=== PATIENT | female | born 1940 | race Caucasian/White ===

== ENCOUNTER → 2016-12-15 | Outpatient (CLI) | payer MEDICARE, BC, OTHER ==
[2016-12-15 18:40] LABS: ALBUMIN 3.9 GM/DL (3.2-5.2); ALBUMIN/GLOBULIN RATIO 1.44 (1.00-1.93); BILIRUBIN,TOTAL 0.7 MG/DL (0.2-1.0); CALCIUM LEVEL 8.8 MG/DL (8.8-10.2); CREATININE FOR GFR 1.16 MG/DL (0.55-1.02); FREE T4 1.21 NG/DL (0.76-1.46); GLOMERULAR FILTRATION RATE 48.8 (>39); POTASSIUM SERUM 4.7 MEQ/L (3.5-5.1); TOTAL PROTEIN 6.6 GM/DL (6.4-8.2)
[2016-12-15 19:02] LABS: MEAN CORPUSCULAR HGB CONC 32.5 g/dl (32.0-36.5); MEAN CORPUSCULAR VOLUME 98.5 fl (80.0-96.0); RED CELL DISTRIBUTION WIDTH 12.4 % (11.5-14.5); WHITE BLOOD COUNT 4.2 K/mm3 (4.0-10.0)
== END ==
LOC: M WUC 10:48
PROVIDERS: ATTEND Family Medicine
DX: N18.3 Chronic kidney disease, stage 3 (moderate) (principal); I70.219 Atherosclerosis of native arteries of extremities with intermittent claudication, unspecified extremity; E78.2 Mixed hyperlipidemia; E03.9 Hypothyroidism, unspecified

== ENCOUNTER 2016-12-23 20:10 | Emergency (ER) | payer MEDICARE, BC, OTHER ==
[~2016-12-23] VITALS: Ht 162.6 cm; Wt 66.7 kg
[2016-12-23] MEDS ORDERED: NS 500 ML IV ONE ×2 (20:30→21:45)
[2016-12-23 20:57] LABS: BASO % 0.8 % (0.0-1.0); EOS # 0.1 K/mm3 (0.0-0.50); EOS % 1.3 % (0.0-3.0); LARGE UNSTAINED CELL # 0.1 K/mm3 (0.0-0.4); LARGE UNSTAINED CELL % 1.3 % (0.0-4.0); LYMPH # 1.5 K/mm3 (1.5-4.5); LYMPH % 31.2 % (24.0-44.0); MEAN CORPUSCULAR HEMOGLOBIN 31.5 pg (27.0-33.0); MEAN CORPUSCULAR VOLUME 98.5 fl (80.0-96.0); MONO # 0.3 K/mm3 (0.0-0.8); MONO % 6.8 % (0.0-5.0); NEUTROPHILS # 2.7 K/mm3 (1.8-7.7); NEUTROPHILS % 58.5 % (36.0-66.0); PLATELET COUNT, AUTOMATED 180 k/mm3 (150-450); RED CELL DISTRIBUTION WIDTH 12.2 % (11.5-14.5); WHITE BLOOD COUNT 4.6 K/mm3 (4.0-10.0)
[2016-12-23 21:22] LABS: CALCIUM LEVEL 8.4 MG/DL (8.8-10.2); CREATININE FOR GFR 1.04 MG/DL (0.55-1.02); GLOMERULAR FILTRATION RATE 55.1 (>39); MAGNESIUM LEVEL 2.2 MG/DL (1.8-2.4); POTASSIUM SERUM 3.4 MEQ/L (3.5-5.1)
[2016-12-23] MEDS ORDERED: POTASSIUM CHLORIDE 10 MEQ SR TABLET PO ONE (21:45)
[2016-12-23 22:21] VITALS: BP 122/57
== END 2016-12-23 22:23 | disposition home or self-care (01) ==
LOC: EDBD 20:10 → EDUNIT# 20:10 → M ED 21:25
DX: E86.0 Dehydration (principal); R25.2 Cramp and spasm; E87.6 Hypokalemia; I10 Essential (primary) hypertension; I73.9 Peripheral vascular disease, unspecified; Z95.820 Peripheral vascular angioplasty status with implants and grafts

== ENCOUNTER → 2016-12-28 | Outpatient (CLI) | payer MEDICARE, BC, OTHER ==
[2016-12-28 17:30] LABS: CALCIUM LEVEL 8.6 MG/DL (8.8-10.2); CREATININE FOR GFR 1.08 MG/DL (0.55-1.02); GLOMERULAR FILTRATION RATE 52.8 (>39); PERCENT SATURATION 22.4 % (13.2-37.4); POTASSIUM SERUM 4.8 MEQ/L (3.5-5.1)
[2016-12-28 17:52] LABS: MEAN CORPUSCULAR HGB CONC 32.8 g/dl (32.0-36.5); MEAN CORPUSCULAR VOLUME 97.8 fl (80.0-96.0); RED CELL DISTRIBUTION WIDTH 12.2 % (11.5-14.5); WHITE BLOOD COUNT 4.5 K/mm3 (4.0-10.0)
== END ==
LOC: M WUC 11:35
PROVIDERS: ATTEND Physician Assistant
DX: D64.9 Anemia, unspecified (principal); E87.5 Hyperkalemia

== ENCOUNTER → 2017-01-04 | Outpatient (CLI) | payer MEDICARE, BC, OTHER ==
--- NOTE | 2017-01-04 15:35 | REPMRS ---
Patient History The patient states she had a clinical breast exam in 01/04 Patient is postmenopausal, has history of skin cancer at age 72, and is nulliparous. No known family history of cancer. Took estrogen for 3 years 3 months. Digital Woman Screen Mammo: January 04, 2017 - Exam #: [id number] Bilateral CC and MLO view(s) were taken. Technologist: Bren Brennan, Technologist Prior study comparison: December 27, 2015, digital woman screen mammo performed at [facility]. December 26, 2014, digital woman screen mammo performed at [facility]. December 15, 2013, digital woman screen mammo performed at [facility]. FINDINGS: There are scattered fibroglandular densities. There has been no change in the appearance of the mammogram from the prior studies. There is a mild amount of scattered fibroglandular density which is fairly symmetric. There is no interval development of dominant mass, architectural distortion, or clustered microcalcification suggestive of malignancy. ASSESSMENT: BI-RADS/ACR category 1 mammogram. Negative. Recommendation Routine screening mammogram in 1 year (for women over age 40). This mammogram was interpreted with the aid of an FDA-approved computer-aided dectection system. Electronically Signed By: Lico Hill MD 01/04/17 [id number]
== END ==
LOC: M WHC 13:04
PROVIDERS: ATTEND Nurse Practitioner Family
DX: Z01.419 Encounter for gynecological examination (general) (routine) without abnormal findings (principal); Z12.31 Encounter for screening mammogram for malignant neoplasm of breast; Z78.0 Asymptomatic menopausal state; Z12.12 Encounter for screening for malignant neoplasm of rectum; Z92.0 Personal history of contraception
CPT/HCPCS: 82270; G0101; G0202

== ENCOUNTER → 2017-04-28 | Outpatient (REF) | payer MEDICARE, OTHER | LOC: M LAB REF 15:55 | PROVIDERS: ATTEND Nurse Practitioner Family | DX: L08.9 Local infection of the skin and subcutaneous tissue, unspecified (principal) ==

== ENCOUNTER → 2017-06-17 | Outpatient (CLI) | payer MEDICARE, OTHER ==
[2017-06-17 18:04] LABS: ALBUMIN/GLOBULIN RATIO 1.25 (1.00-1.93); BILIRUBIN,TOTAL 0.7 MG/DL (0.2-1.0); CALCIUM LEVEL 8.9 MG/DL (8.8-10.2); CREATININE FOR GFR 0.98 MG/DL (0.55-1.02); GLOMERULAR FILTRATION RATE 59.1 (>39); MEAN CORPUSCULAR HEMOGLOBIN 32.1 pg (27.0-33.0); MEAN CORPUSCULAR HGB CONC 32.8 g/dl (32.0-36.5); POTASSIUM SERUM 4.9 MEQ/L (3.5-5.1); RED CELL DISTRIBUTION WIDTH 12.3 % (11.5-14.5); TOTAL PROTEIN 7.2 GM/DL (6.4-8.2); WHITE BLOOD COUNT 5.3 10^3/uL (4.0-10.0)
[2017-06-17 18:05] LABS: FOLATE 10.7 NG/ML (>5.4)
== END ==
LOC: M WUC 11:16
PROVIDERS: ATTEND Physician Assistant
DX: N18.3 Chronic kidney disease, stage 3 (moderate) (principal); E03.9 Hypothyroidism, unspecified

== ENCOUNTER → 2017-08-05 | Outpatient (REF) | payer MEDICARE, OTHER | LOC: M LAB REF 13:30 | PROVIDERS: ATTEND Surgery | DX: L90.5 Scar conditions and fibrosis of skin (principal); L01.02 Bockhart's impetigo ==

== ENCOUNTER 2017-10-03 11:19 | Inpatient (IN) | payer MEDICARE, BC, OTHER ==
[2017-10-03] MEDS: METOPROLOL TART 50 MG TAB PO (12:22)
[2017-10-03 12:29] LABS: BASO # 0.1 10^3/uL (0.0-0.2); BASO % 0.9 % (0.0-1.0); EOS % 0.5 % (0.0-3.0); HEMATOCRIT 38.6 % (36.0-47.0); HEMOGLOBIN 13.1 g/dl (12.0-16.0); IMMATURE GRANULOCYTE % 0.4 % (0-0); LYMPH # 1.6 10^3/uL (1.5-4.5); LYMPH % 27.6 % (24.0-44.0); MEAN CORPUSCULAR HEMOGLOBIN 32.6 pg (27.0-33.0); MEAN CORPUSCULAR HGB CONC 33.9 g/dl (32.0-36.5); MONO # 0.6 10^3/uL (0.0-0.8); MONO % 10.1 % (0.0-5.0); NEUTROPHILS # 3.4 10^3/uL (1.8-7.7); NEUTROPHILS % 60.5 % (36.0-66.0); PLATELET COUNT, AUTOMATED 193 10^3/uL (150-450); RED BLOOD COUNT 4.02 10^6/uL (4.00-5.40); RED CELL DISTRIBUTION WIDTH 11.7 % (11.5-14.5); WHITE BLOOD COUNT 5.7 10^3/uL (4.0-10.0)
[2017-10-03 12:34] LABS: INR 1.07; PARTIAL THROMBOPLASTIN TIME 29.6 SECONDS (26.8-37.9); PROTHROMBIN TIME 14.1 SECONDS (12.4-14.5)
[2017-10-03 12:42] LABS: ANION GAP 6 MEQ/L (8-16); BLOOD UREA NITROGEN 35 MG/DL (7-18); CALCIUM LEVEL 8.7 MG/DL (8.8-10.2); CARBON DIOXIDE LEVEL 29 MEQ/L (21-32); CHLORIDE LEVEL 102 MEQ/L (98-107); CK-MB VALUE MASS 2.5 NG/ML (0.0-3.6); CPK CREATINE PHOSPHOKINASE 116 U/L (26-192); GLOMERULAR FILTRATION RATE 42.6 (>39); GLUCOSE, FASTING 97 MG/DL (83-110); MB/CK RELATIVE INDEX 2.15 (< OR =4); POTASSIUM SERUM 4.7 MEQ/L (3.5-5.1); SODIUM LEVEL 137 MEQ/L (136-145); TROPONIN I 0.02 NG/ML (< 0.10)
[2017-10-03 12:47] LABS: FREE T4 1.13 NG/DL (0.76-1.46)
[2017-10-03] MEDS: METOPROLOL 5 MG/5 ML VIAL IV ×3 (13:22→13:35)
[2017-10-03] MEDS: FLECAINIDE 50MG TABLET PO (14:04)
[2017-10-03] MEDS ORDERED: BACLOFEN 10 MG TAB PO (18:00)
[2017-10-03] MEDS: SIMVASTATIN 40 MG TAB PO (20:20)
[2017-10-03] MEDS: LISINOPRIL 40 MG TAB PO (20:20)
[2017-10-03] MEDS: MAGNESIUM GLUCONATE 500 MG TAB PO (20:20)
[2017-10-04] MEDS: LEVOTHYROXINE 88MCG TABLET (0.088 MG) PO (06:25)
[2017-10-04 07:37] LABS: ALBUMIN 3.9 GM/DL (3.2-5.2); ALBUMIN/GLOBULIN RATIO 1.15 (1.00-1.93); ALKALINE PHOSPHATASE 67 U/L (45-117); ALT/SGPT 19 U/L (12-78); ANION GAP 4 MEQ/L (8-16); AST/SGOT 19 U/L (7-37); BILIRUBIN,TOTAL 0.7 MG/DL (0.2-1.0); BLOOD UREA NITROGEN 26 MG/DL (7-18); CALCIUM LEVEL 8.7 MG/DL (8.8-10.2); CARBON DIOXIDE LEVEL 31 MEQ/L (21-32); CHLORIDE LEVEL 104 MEQ/L (98-107); CREATININE FOR GFR 1.24 MG/DL (0.55-1.02); GLUCOSE, FASTING 95 MG/DL (83-110); POTASSIUM SERUM 3.9 MEQ/L (3.5-5.1); SODIUM LEVEL 139 MEQ/L (136-145); TOTAL PROTEIN 7.3 GM/DL (6.4-8.2)
[2017-10-04] MEDS: FLECAINIDE 50MG TABLET PO ×2 (10:38→21:16)
[2017-10-04] MEDS: MAGNESIUM GLUCONATE 500 MG TAB PO ×2 (10:38→21:12)
[2017-10-04] MEDS: PANTOPRAZOLE 40MG TAB (PROTONIX) PO (10:39)
[2017-10-04] MEDS: METOPROLOL TART 12.5 MG PER 1/2 TAB PO ×2 (10:39→21:00)
[2017-10-04] MEDS: ASPIRIN 81 MG CHEW TABLET PO (10:39)
[2017-10-04] MEDS: CHLORTHALIDONE 12.5MG PER 1/2 TABLET PO (10:39)
[2017-10-04] MEDS: ENOXAPARIN 80 MG/0.8 ML SYRINGE (J1650) SC ×2 (10:40→21:16)
[2017-10-04] MEDS: LISINOPRIL 40 MG TAB PO (21:00)
[2017-10-04] MEDS: SIMVASTATIN 40 MG TAB PO (21:13)
[2017-10-05] MEDS: LEVOTHYROXINE 88MCG TABLET (0.088 MG) PO (06:08)
[2017-10-05] MEDS: ENOXAPARIN 80 MG/0.8 ML SYRINGE (J1650) SC ×2 (08:41→21:08)
[2017-10-05] MEDS: ASPIRIN 81 MG CHEW TABLET PO (08:42)
[2017-10-05] MEDS: MAGNESIUM GLUCONATE 500 MG TAB PO ×2 (08:42→21:08)
[2017-10-05] MEDS: PANTOPRAZOLE 40MG TAB (PROTONIX) PO (08:42)
[2017-10-05] MEDS: METOPROLOL TART 25 MG TABLET PO ×3 (08:43→21:08)
[2017-10-05] MEDS: CETIRIZINE (ZyrTEC) 10 MG TAB PO (08:43)
[2017-10-05] MEDS: LISINOPRIL 40 MG TAB PO (21:00)
[2017-10-05] MEDS: SIMVASTATIN 40 MG TAB PO (21:08)
[2017-10-06 05:09] LABS: HEMATOCRIT 40.1 % (36.0-47.0); HEMOGLOBIN 13.6 g/dl (12.0-16.0); MEAN CORPUSCULAR HEMOGLOBIN 32.2 pg (27.0-33.0); MEAN CORPUSCULAR HGB CONC 33.9 g/dl (32.0-36.5); MEAN CORPUSCULAR VOLUME 94.8 fl (80.0-96.0); PLATELET COUNT, AUTOMATED 170 10^3/uL (150-450); RED BLOOD COUNT 4.23 10^6/uL (4.00-5.40); RED CELL DISTRIBUTION WIDTH 11.7 % (11.5-14.5); WHITE BLOOD COUNT 5.8 10^3/uL (4.0-10.0)
[2017-10-06 05:30] LABS: ANION GAP 7 MEQ/L (8-16); BLOOD UREA NITROGEN 30 MG/DL (7-18); CALCIUM LEVEL 8.6 MG/DL (8.8-10.2); CARBON DIOXIDE LEVEL 28 MEQ/L (21-32); CHLORIDE LEVEL 104 MEQ/L (98-107); CREATININE FOR GFR 1.17 MG/DL (0.55-1.02); GLOMERULAR FILTRATION RATE 48.1 (>39); GLUCOSE, FASTING 95 MG/DL (83-110); POTASSIUM SERUM 4.1 MEQ/L (3.5-5.1); SODIUM LEVEL 139 MEQ/L (136-145)
[2017-10-06] MEDS: LEVOTHYROXINE 88MCG TABLET (0.088 MG) PO (06:20)
[2017-10-06] MEDS: ASPIRIN 81 MG CHEW TABLET PO (08:07)
[2017-10-06] MEDS: ENOXAPARIN 80 MG/0.8 ML SYRINGE (J1650) SC (08:07)
[2017-10-06] MEDS: MAGNESIUM GLUCONATE 500 MG TAB PO (08:07)
[2017-10-06] MEDS: CETIRIZINE (ZyrTEC) 10 MG TAB PO (08:08)
[2017-10-06] MEDS: PANTOPRAZOLE 40MG TAB (PROTONIX) PO (08:08)
[2017-10-06] MEDS: METOPROLOL TART 50 MG TAB PO (08:09)
[2017-10-06] MEDS ORDERED: METOPROLOL TART 50 MG TAB PO (09:00)
== END 2017-10-06 12:24 | disposition home or self-care (01) | DRG 310 ==
LOC: M ICU 10-04 19:45 → M ED 11:19 → M ED INP 16:59
DX: I48.0 Paroxysmal atrial fibrillation (principal); I48.92 Unspecified atrial flutter; I10 Essential (primary) hypertension; I73.9 Peripheral vascular disease, unspecified; E78.5 Hyperlipidemia, unspecified; R55 Syncope and collapse; Z79.899 Other long term (current) drug therapy; Z79.82 Long term (current) use of aspirin; I95.9 Hypotension, unspecified; E03.9 Hypothyroidism, unspecified; Z87.891 Personal history of nicotine dependence

== ENCOUNTER → 2017-12-21 | Outpatient (CLI) | payer MEDICARE, BC, OTHER ==
[2017-12-21 19:37] LABS: HEMATOCRIT 38.6 % (36.0-47.0); HEMOGLOBIN 12.4 g/dl (12.0-15.5); MEAN CORPUSCULAR HEMOGLOBIN 31.1 pg (27.0-33.0); MEAN CORPUSCULAR HGB CONC 32.1 g/dl (32.0-36.5); MEAN CORPUSCULAR VOLUME 96.7 fl (80.0-96.0); PLATELET COUNT, AUTOMATED 169 10^3/uL (150-450); RED BLOOD COUNT 3.99 10^6/uL (4.00-5.40); RED CELL DISTRIBUTION WIDTH 12.6 % (11.5-14.5); WHITE BLOOD COUNT 3.9 10^3/uL (4.0-10.0)
[2017-12-21 19:43] LABS: ALBUMIN 4.1 GM/DL (3.2-5.2); ALBUMIN/GLOBULIN RATIO 1.52 (1.00-1.93); ALKALINE PHOSPHATASE 69 U/L (45-117); ALT/SGPT 26 U/L (12-78); ANION GAP 5 MEQ/L (8-16); AST/SGOT 22 U/L (7-37); BILIRUBIN,TOTAL 0.9 MG/DL (0.2-1.0); BLOOD UREA NITROGEN 21 MG/DL (7-18); CALCIUM LEVEL 8.4 MG/DL (8.8-10.2); CARBON DIOXIDE LEVEL 30 MEQ/L (21-32); CHLORIDE LEVEL 109 MEQ/L (98-107); CHOLESTEROL LEVEL 152 MG/DL (<200); CHOLESTEROL RISK RATIO 3.454 (<5); CREATININE FOR GFR 1.06 MG/DL (0.55-1.30); FREE T4 1.14 NG/DL (0.76-1.46); GLOMERULAR FILTRATION RATE 53.8 (>39); GLUCOSE, FASTING 101 MG/DL (70-100); HDL CHOLESTEROL 44 MG/DL (>40); LDL CHOLESTEROL 87.2 MG/DL (<100); NON-HDL-C 108 MG/DL; POTASSIUM SERUM 4.3 MEQ/L (3.5-5.1); SODIUM LEVEL 144 MEQ/L (136-145); TOTAL PROTEIN 6.8 GM/DL (6.4-8.2); TRIGLYCERIDES LEVEL 104 MG/DL (<150)
[2017-12-21 21:09] LABS: ESTIMATED AVERAGE GLUCOSE 120 MG/DL (60-110); HEMOGLOBIN A1c 5.8 %
== END ==
LOC: M WUC 10:43
DX: I48.0 Paroxysmal atrial fibrillation (principal); Z79.899 Other long term (current) drug therapy
CPT/HCPCS: 84443

== ENCOUNTER → 2018-01-24 | Outpatient (CLI) | payer MEDICARE, BC | LOC: M WHC 11:09 | DX: Z01.419 Encounter for gynecological examination (general) (routine) without abnormal findings (principal); Z12.31 Encounter for screening mammogram for malignant neoplasm of breast (principal); Z78.0 Asymptomatic menopausal state; Z92.23 Personal history of estrogen therapy; Z12.12 Encounter for screening for malignant neoplasm of rectum | CPT/HCPCS: 77067 ==

== ENCOUNTER → 2018-02-07 | Outpatient (CLI) | payer MEDICARE, BC ==
[2018-02-07 17:25] LABS: ANION GAP 4 MEQ/L (8-16); BLOOD UREA NITROGEN 17 MG/DL (7-18); CALCIUM LEVEL 8.3 MG/DL (8.8-10.2); CARBON DIOXIDE LEVEL 31 MEQ/L (21-32); CHLORIDE LEVEL 105 MEQ/L (98-107); CREATININE FOR GFR 1.02 MG/DL (0.55-1.30); GLOMERULAR FILTRATION RATE 56.2 (>39); GLUCOSE, FASTING 91 MG/DL (70-100); MAGNESIUM LEVEL 2.2 MG/DL (1.8-2.4); POTASSIUM SERUM 4.3 MEQ/L (3.5-5.1); SODIUM LEVEL 140 MEQ/L (136-145)
== END ==
LOC: M WUC 11:55
DX: I48.91 Unspecified atrial fibrillation (principal)
CPT/HCPCS: 83735

== ENCOUNTER → 2018-04-28 | Outpatient (CLI) | payer MEDICARE, BC ==
[2018-04-28 17:15] LABS: ANION GAP 8 MEQ/L (8-16); BLOOD UREA NITROGEN 21 MG/DL (7-18); CALCIUM LEVEL 8.3 MG/DL (8.8-10.2); CARBON DIOXIDE LEVEL 31 MEQ/L (21-32); CHLORIDE LEVEL 104 MEQ/L (98-107); GLOMERULAR FILTRATION RATE 51.5 (>39); GLUCOSE, FASTING 93 MG/DL (70-100); MAGNESIUM LEVEL 2.1 MG/DL (1.8-2.4); POTASSIUM SERUM 4.4 MEQ/L (3.5-5.1); SODIUM LEVEL 143 MEQ/L (136-145)
== END ==
LOC: M WUC 12:23
DX: I48.91 Unspecified atrial fibrillation (principal)
CPT/HCPCS: 83735

== ENCOUNTER → 2018-07-05 | Outpatient (CLI) | payer MEDICARE, BC ==
[2018-07-05 13:08] LABS: HEMATOCRIT 35.4 % (36.0-47.0); HEMOGLOBIN 11.6 g/dl (12.0-15.5); MEAN CORPUSCULAR HEMOGLOBIN 32.2 pg (27.0-33.0); MEAN CORPUSCULAR HGB CONC 32.8 g/dl (32.0-36.5); MEAN CORPUSCULAR VOLUME 98.3 fl (80.0-96.0); PLATELET COUNT, AUTOMATED 159 10^3/uL (150-450); WHITE BLOOD COUNT 3.8 10^3/uL (4.0-10.0)
[2018-07-05 13:15] LABS: ALBUMIN 4.1 GM/DL (3.2-5.2); ALBUMIN/GLOBULIN RATIO 1.58 (1.00-1.93); ALKALINE PHOSPHATASE 62 U/L (45-117); ALT/SGPT 39 U/L (12-78); ANION GAP 5 MEQ/L (8-16); AST/SGOT 30 U/L (7-37); BILIRUBIN,TOTAL 0.7 MG/DL (0.2-1.0); BLOOD UREA NITROGEN 28 MG/DL (7-18); CALCIUM LEVEL 8.4 MG/DL (8.8-10.2); CARBON DIOXIDE LEVEL 30 MEQ/L (21-32); CHLORIDE LEVEL 108 MEQ/L (98-107); CHOLESTEROL LEVEL 156 MG/DL (<200); CHOLESTEROL RISK RATIO 2.476 (<5); CREATININE FOR GFR 0.99 MG/DL (0.55-1.30); FREE T4 1.09 NG/DL (0.76-1.46); GLOMERULAR FILTRATION RATE 58.2 (>39); GLUCOSE, FASTING 94 MG/DL (70-100); HDL CHOLESTEROL 63 MG/DL (>40); LDL CHOLESTEROL 79 MG/DL (<100); NON-HDL-C 93 MG/DL; POTASSIUM SERUM 4.5 MEQ/L (3.5-5.1); SODIUM LEVEL 143 MEQ/L (136-145); TOTAL PROTEIN 6.7 GM/DL (6.4-8.2); TRIGLYCERIDES LEVEL 70 MG/DL (<150)
[2018-07-05 13:40] LABS: ESTIMATED AVERAGE GLUCOSE 114 MG/DL (60-110); HEMOGLOBIN A1c 5.6 %
== END ==
LOC: M WUC 10:06
DX: I48.0 Paroxysmal atrial fibrillation (principal); I70.219 Atherosclerosis of native arteries of extremities with intermittent claudication, unspecified extremity; E74.9 Disorder of carbohydrate metabolism, unspecified; E03.9 Hypothyroidism, unspecified; E78.2 Mixed hyperlipidemia; I73.9 Peripheral vascular disease, unspecified
CPT/HCPCS: 84443

== ENCOUNTER → 2018-08-23 | Outpatient (CLI) | payer MEDICARE, BC, OTHER ==
[2018-08-23 16:47] LABS: ANION GAP 8 MEQ/L (8-16); BLOOD UREA NITROGEN 32 MG/DL (7-18); CALCIUM LEVEL 8.4 MG/DL (8.8-10.2); CARBON DIOXIDE LEVEL 29 MEQ/L (21-32); CHLORIDE LEVEL 104 MEQ/L (98-107); CREATININE FOR GFR 1.23 MG/DL (0.55-1.30); GLOMERULAR FILTRATION RATE 45.3 (>39); GLUCOSE, FASTING 102 MG/DL (70-100); POTASSIUM SERUM 4.2 MEQ/L (3.5-5.1); SODIUM LEVEL 141 MEQ/L (136-145)
== END ==
LOC: M WUC 14:47
DX: I10 Essential (primary) hypertension (principal)
CPT/HCPCS: 83735

== ENCOUNTER → 2018-11-21 | Outpatient (REF) | payer MEDICARE, OTHER ==
[~2018-11-21] MED LIST: ASPI81CH3 PO; BACL1TAB8 PO; BIOT10008 PO; CITRTAB19 PO; CLOP75TA2 PO; ELIQ2.5T PO; ELIQ5TAB PO; LISI40TA PO; METO1TAB32 PO; METO1TAB7 PO; PANT40TA3 PO; POTA99TA PO; PRESCAP6 PO; RANI300T PO; SIMV40TA2 PO; SYNT88TA2 PO; ZYRT10CA PO
== END ==
LOC: M LAB REF 15:30
PROVIDERS: ATTEND Nurse Practitioner
DX: L08.9 Local infection of the skin and subcutaneous tissue, unspecified (principal)

== ENCOUNTER → 2019-01-24 | Outpatient (CLI) | payer MEDICARE, OTHER ==
[~2019-01-24] MED LIST changes: -ASPI81CH3 PO; +ASPI81CH48 PO
[2019-01-24 12:15] LABS: HEMOGLOBIN 11.6 g/dl (12.0-15.5); MEAN CORPUSCULAR HEMOGLOBIN 31.9 pg (27.0-33.0); MEAN CORPUSCULAR HGB CONC 32.2 g/dl (32.0-36.5); MEAN CORPUSCULAR VOLUME 98.9 fl (80.0-96.0); PLATELET COUNT, AUTOMATED 167 10^3/uL (150-450); RED BLOOD COUNT 3.64 10^6/uL (4.00-5.40); WHITE BLOOD COUNT 3.9 10^3/uL (4.0-10.0)
[2019-01-24 13:08] LABS: CALCIUM LEVEL 8.4 MG/DL (8.8-10.2); CREATININE FOR GFR 1.2 MG/DL (0.55-1.30); FREE T4 1.13 NG/DL (0.76-1.46); GLOMERULAR FILTRATION RATE 46.5 (>39); PERCENT SATURATION 24.7 % (13.2-45.0); POTASSIUM SERUM 4.1 MEQ/L (3.5-5.1); THYROID STIMULATING HORMONE 1.39 uIU/ML (0.358-3.740)
== END ==
LOC: M WUC 10:05
PROVIDERS: ATTEND Family Medicine
DX: D64.9 Anemia, unspecified (principal); E03.9 Hypothyroidism, unspecified; E11.9 Type 2 diabetes mellitus without complications

== ENCOUNTER → 2019-01-26 | Outpatient (CLI) | payer MEDICARE, BC ==
--- NOTE | 2019-01-26 12:36 | REPMRS ---
Patient History The patient states she had a clinical breast exam in 01/2019. Patient is postmenopausal, has history of basal and squamous cell skin cancer at age 72, and is nulliparous. No known family history of cancer. Took estrogen for 3 years 3 months. 3D TOMOSYNTHESIS WAS PERFORMED. Digital Woman Screen Mammo: January 26, 2019 - Exam #: [id number] Bilateral CC and MLO view(s) were taken. Technologist: Sarah Acharya, Technologist Prior study comparison: January 24, 2018, digital woman screen mammo performed at [facility] [employer] [facility] [employer] [facility]. January 04, 2017, digital woman screen mammo performed at [facility] [employer] [facility]. FINDINGS: There are scattered fibroglandular densities. There has been no change in the appearance of the mammogram from the prior studies. There is a mild amount of residual fibroglandular tissue which is fairly symmetric. There is no interval development of dominant mass, architectural distortion, or clustered microcalcification suggestive of malignancy. Assessment: BI-RADS/ACR category 1 mammogram. Negative Mammogram. Recommendation Routine screening mammogram in 1 year (for women over age 40). This mammogram was interpreted with the aid of an FDA-approved computer-aided dectection system. Electronically Signed By: Michael Almanza MD 01/26/19 [id number]
== END ==
LOC: M WHC 11:17
PROVIDERS: ATTEND Nurse Practitioner Family
DX: Z01.419 Encounter for gynecological examination (general) (routine) without abnormal findings (principal); Z12.31 Encounter for screening mammogram for malignant neoplasm of breast; Z78.0 Asymptomatic menopausal state; Z85.828 Personal history of other malignant neoplasm of skin; Z92.23 Personal history of estrogen therapy
CPT/HCPCS: 77063; 77067; G0101

== ENCOUNTER → 2019-04-18 | Outpatient (REF) | payer MEDICARE, OTHER | LOC: M LAB REF 18:18 | PROVIDERS: ATTEND Nurse Practitioner | DX: L08.9 Local infection of the skin and subcutaneous tissue, unspecified (principal) ==

== ENCOUNTER → 2019-06-06 | Outpatient (CLI) | payer MEDICARE, OTHER ==
[2019-06-06 16:52] LABS: BASO % 0.9 % (0.0-1.0); EOS # 0.1 10^3/uL (0.0-0.5); EOS % 1.2 % (0.0-3.0); HEMATOCRIT 34.7 % (36.0-47.0); HEMOGLOBIN 11.4 g/dl (12.0-15.5); LYMPH # 1.5 10^3/uL (1.5-5.0); LYMPH % 34.6 % (24.0-44.0); MEAN CORPUSCULAR HEMOGLOBIN 32.6 pg (27.0-33.0); MEAN CORPUSCULAR HGB CONC 32.9 g/dl (32.0-36.5); MEAN CORPUSCULAR VOLUME 99.1 fl (80.0-96.0); MONO # 0.4 10^3/uL (0.0-0.8); MONO % 9.8 % (0.0-5.0); NEUTROPHILS # 2.3 10^3/uL (1.5-8.5); NEUTROPHILS % 53.3 % (36.0-66.0); PLATELET COUNT, AUTOMATED 185 10^3/uL (150-450); WHITE BLOOD COUNT 4.3 10^3/uL (4.0-10.0)
[2019-06-06 16:53] LABS: CREATININE FOR GFR 1.19 MG/DL (0.55-1.30); GLOMERULAR FILTRATION RATE 46.9 (>39); POTASSIUM SERUM 4.1 MEQ/L (3.5-5.1)
[2019-06-06 17:04] LABS: INR 1.21
[2019-06-06 17:05] LABS: PARTIAL THROMBOPLASTIN TIME 30.9 SECONDS (25.0-38.4)
== END ==
LOC: M WUC 14:35
PROVIDERS: ATTEND Physician Assistant
DX: I70.213 Atherosclerosis of native arteries of extremities with intermittent claudication, bilateral legs (principal); Z79.01 Long term (current) use of anticoagulants

== ENCOUNTER → 2019-07-25 | Outpatient (CLI) | payer MEDICARE, OTHER ==
[2019-07-25 13:10] LABS: HEMATOCRIT 25.2 % (36.0-47.0); HEMOGLOBIN 7.6 g/dl (12.0-15.5); MEAN CORPUSCULAR HEMOGLOBIN 32.1 pg (27.0-33.0); MEAN CORPUSCULAR HGB CONC 30.2 g/dl (32.0-36.5); MEAN CORPUSCULAR VOLUME 106.3 fl (80.0-96.0); PLATELET COUNT, AUTOMATED 190 10^3/uL (150-450); RED BLOOD COUNT 2.37 10^6/uL (4.00-5.40)
[2019-07-25 13:12] LABS: BILIRUBIN,TOTAL 0.6 MG/DL (0.2-1.0); CALCIUM LEVEL 8.4 MG/DL (8.8-10.2); CREATININE FOR GFR 1.16 MG/DL (0.55-1.30); GLOMERULAR FILTRATION RATE 48.4 (>39); POTASSIUM SERUM 4.4 MEQ/L (3.5-5.1)
[2019-07-25 13:13] LABS: ALBUMIN 3.8 GM/DL (3.2-5.2); CHOLESTEROL RISK RATIO 2.22 (<5); FREE T4 1.09 NG/DL (0.76-1.46); THYROID STIMULATING HORMONE 7.52 uIU/ML (0.358-3.740); TOTAL PROTEIN 6.5 GM/DL (6.4-8.2)
== END ==
LOC: M WUC 10:47
PROVIDERS: ATTEND Family Medicine
DX: N18.3 Chronic kidney disease, stage 3 (moderate) (principal); I11.9 Hypertensive heart disease without heart failure; E03.9 Hypothyroidism, unspecified; E78.2 Mixed hyperlipidemia

== ENCOUNTER → 2019-07-27 | Outpatient (REF) | payer MEDICARE, OTHER ==
[2019-07-27 17:12] LABS: FOLATE 11.2 NG/ML; PERCENT SATURATION 6.8 % (13.2-45.0)
[2019-07-27 17:17] LABS: BASO # 0.1 10^3/uL (0.0-0.2); BASO % 1.2 % (0.0-1.0); EOS # 0.1 10^3/uL (0.0-0.5); EOS % 1.2 % (0.0-3.0); HEMATOCRIT 26.6 % (36.0-47.0); HEMOGLOBIN 8.1 g/dl (12.0-15.5); LYMPH # 1.3 10^3/uL (1.5-5.0); LYMPH % 25.7 % (24.0-44.0); MEAN CORPUSCULAR HEMOGLOBIN 32.1 pg (27.0-33.0); MEAN CORPUSCULAR HGB CONC 30.5 g/dl (32.0-36.5); MEAN CORPUSCULAR VOLUME 105.6 fl (80.0-96.0); MONO # 0.5 10^3/uL (0.0-0.8); MONO % 9.7 % (0.0-5.0); NEUTROPHILS # 3.1 10^3/uL (1.5-8.5); PLATELET COUNT, AUTOMATED 216 10^3/uL (150-450); RED BLOOD COUNT 2.52 10^6/uL (4.00-5.40); WHITE BLOOD COUNT 5.1 10^3/uL (4.0-10.0)
[2019-07-30 00:06] LABS: FREE KAPPA LIGHT CHAINS SERUM 18.4 mg/L (3.3-19.4); KAPPA/LAMBDA RATIO SERUM 1.31 (0.26-1.65)
== END ==
LOC: M SFHCADAM 13:41
PROVIDERS: ATTEND Family Medicine
DX: D64.9 Anemia, unspecified (principal); Z23 Encounter for immunization
CPT/HCPCS: 82607; 82728; 82746; 83550; 83883; 85025; 85046; 90682; G0008; G0463

== ENCOUNTER → 2019-08-28 | Outpatient (CLI) | payer MEDICARE, OTHER ==
[~2019-08-28] MED LIST changes: -SIMV40TA2 PO; +SIMV40TA20 PO
[2019-08-28 17:02] LABS: PERCENT SATURATION 18.5 % (13.2-45.0)
[2019-08-28 17:16] LABS: HEMATOCRIT 31.7 % (36.0-47.0); HEMOGLOBIN 9.4 g/dl (12.0-15.5); MEAN CORPUSCULAR HEMOGLOBIN 31.4 pg (27.0-33.0); MEAN CORPUSCULAR HGB CONC 29.7 g/dl (32.0-36.5); PLATELET COUNT, AUTOMATED 184 10^3/uL (150-450); RED BLOOD COUNT 2.99 10^6/uL (4.00-5.40); WHITE BLOOD COUNT 3.5 10^3/uL (4.0-10.0)
== END ==
LOC: M WUC 11:14
PROVIDERS: ATTEND Family Medicine
DX: D50.8 Other iron deficiency anemias (principal)

== ENCOUNTER → 2019-10-09 | Outpatient (CLI) | payer MEDICARE, OTHER ==
[2019-10-09 18:04] LABS: HEMATOCRIT 31.7 % (36.0-47.0); HEMOGLOBIN 10.1 g/dl (12.0-15.5); MEAN CORPUSCULAR HEMOGLOBIN 31.2 pg (27.0-33.0); MEAN CORPUSCULAR HGB CONC 31.9 g/dl (32.0-36.5); MEAN CORPUSCULAR VOLUME 97.8 fl (80.0-96.0); PLATELET COUNT, AUTOMATED 187 10^3/uL (150-450); RED BLOOD COUNT 3.24 10^6/uL (4.00-5.40); WHITE BLOOD COUNT 4.5 10^3/uL (4.0-10.0)
== END ==
LOC: M PLALAB 14:37
PROVIDERS: ATTEND Physician Assistant
DX: D50.8 Other iron deficiency anemias (principal)

== ENCOUNTER 2019-11-13 10:54 | Day surgery (SDC) | payer MEDICARE, BC, OTHER ==
[~2019-11-13] VITALS: Ht 162.6 cm; Wt 71.1 kg
[~2019-11-13 10:54] MED LIST changes: +AMLO5TAB6 PO; +CETI5SOL3 PO; +DOFE250C PO; +FURO20TA2 PO; +NS 1,000 ML IV ONE; +PRES10CA2 PO; +VITA100054 PO
--- NOTE | 2019-11-13 12:50 | ROOR ---
Patient Name: Rehan Spangler Procedure Date: 11/13/2019 12:35 PM Date of : 1940 Age: 78 Room: [facility] Gender: Female Note Status: Finalized Procedure: Upper GI endoscopy Indications: Iron deficiency anemia Providers: Lui HARDIN MD Referring MD: Karlo Lucero MD Requesting Provider: Medicines: Monitored Anesthesia Care Complications: No immediate complications. Procedure: Pre-Anesthesia Assessment: - The heart rate, respiratory rate, oxygen saturations, blood pressure, adequacy of pulmonary ventilation, and response to care were monitored throughout the procedure. The Endoscope was introduced through the mouth, and advanced to the second part of duodenum. The upper GI endoscopy was accomplished without difficulty. The patient tolerated the procedure well. Findings: The examined esophagus was normal. Patchy mild inflammation characterized by erythema was found in the gastric body and in the gastric antrum. Biopsies were taken with a cold forceps for histology. The exam of the stomach was otherwise normal. The examined duodenum was normal. Biopsies for histology were taken with a cold forceps for evaluation of celiac disease. Impression: - Normal esophagus. - A few small mildly erythematous patches in antrum and body. Biopsied. - Stomach is otherwise normal. - Normal examined duodenum. Biopsied. Recommendation: - Observe patient's clinical course. - Await pathology results. - Telephone endoscopist for pathology results in 2 weeks. Lui Hardin MD Lui HARDIN MD 11/13/2019 12:50:02 PM Electronically signed by Lui HARDIN MD Number of Addenda: 0 Note Initiated On: 11/13/2019 12:35 PM Estimated Blood Loss: Estimated blood loss: none.
[2019-11-13] MEDS ORDERED: LIDOCAINE 2% INJ 100 MG/5 ML SDV (FOR ANES.) As Ordered ONE (12:53)
[2019-11-13] MEDS ORDERED: propofoL 200 MG/20 ML VIAL As Ordered ONE (12:53)
[2019-11-13] MEDS ORDERED: GLYCOPYRROLATE INJ 0.2 MG/ML 2 ML VIAL As Ordered ONE (12:53)
--- NOTE | 2019-11-13 13:08 | ROOR ---
Patient Name: Rehan Spangler Procedure Date: 11/13/2019 12:35 PM Date of : 1940 Age: 78 Room: [facility] Gender: Female Note Status: Finalized Procedure: Colonoscopy Indications: Iron deficiency anemia Providers: Lui HARDIN MD Referring MD: Karlo Lucero MD Requesting Provider: Medicines: Monitored Anesthesia Care Complications: No immediate complications. Procedure: Pre-Anesthesia Assessment: - The heart rate, respiratory rate, oxygen saturations, blood pressure, adequacy of pulmonary ventilation, and response to care were monitored throughout the procedure. The Colonoscope was introduced through the anus and advanced to 10 cm into the ileum. The colonoscopy was performed without difficulty. The patient tolerated the procedure well. The quality of the bowel preparation was good. Findings: The perianal and digital rectal examinations were normal. Small Internal Hemorrhoids. The entire examined colon appeared normal. Sigmoid redundancy noted. The terminal ileum appeared normal. Impression: - Small Internal Hemorrhoids. - The colon is normal. - The terminal ileum is normal. - No specimens collected. Recommendation: - Return to referring physician as previously scheduled. Lui Hardin MD Lui HARDIN MD 11/13/2019 1:08:30 PM Electronically signed by Lui HARDIN MD Number of Addenda: 0 Note Initiated On: 11/13/2019 12:35 PM Estimated Blood Loss: Estimated blood loss: none.
[2019-11-13 13:41] VITALS: BP 141/65
== END 2019-11-13 13:44 | disposition home or self-care (01) ==
LOC: M OPP 10:54
PROVIDERS: ATTEND Internal Medicine Gastroenterology
DX: K29.70 Gastritis, unspecified, without bleeding (principal); K64.8 Other hemorrhoids; Z79.2 Long term (current) use of antibiotics; Z79.82 Long term (current) use of aspirin; Z79.899 Other long term (current) drug therapy; Z87.891 Personal history of nicotine dependence

== ENCOUNTER → 2020-01-29 | Outpatient (CLI) | payer MEDICARE, BC ==
[~2020-01-29] MED LIST changes: -NS 1,000 ML IV ONE
--- NOTE | 2020-01-29 13:16 | REPMRS ---
Patient History The patient states she had a clinical breast exam in January 2020. No known family history of cancer. Took estrogen for 3 years 3 months. Digital Woman Screen Mammo: January 29, 2020 - Exam #: [id number] Bilateral CC and MLO view(s) were taken. Technologist: Najma Major, Technologist Prior study comparison: January 26, 2019, bilateral digital woman screen mammo performed at [facility]. January 24, 2018, digital woman screen mammo performed at [facility]. January 04, 2017, digital woman screen mammo performed at [facility]. FINDINGS: There are scattered fibroglandular densities. The Volpara volumetric breast density category is:B. There has been no change in the appearance of the mammogram from the prior studies. There is a mild amount of scattered fibroglandular density which is fairly symmetric. There is no interval development of dominant mass, architectural distortion, or grouped microcalcification suggestive of malignancy. 3-D tomosynthesis shows no additional findings. Assessment: BI-RADS/ACR category 1 mammogram. Negative Mammogram. Recommendation Routine screening mammogram of both breasts in 1 year (for women over age 40). This patient's Lifetime Breast Cancer Risk is estimated at 3.7 %. This mammogram was interpreted with the aid of an FDA-approved computer-aided dectection system. Electronically Signed By: Lico Hill MD 01/29/20 [id number]
--- NOTE | 2020-01-31 14:43 | DEXA ---
AP SPINE L1 - L4 1.285 0.7 2.5 LT FEMUR TOTAL 0.868 -1.1 0.7 LT NECK 0.838 -1.4 0.6 RT FEMUR TOTAL 0.849 -1.3 0.6 RT NECK 0.821 -1.6 0.5 TOTAL BODY TOTAL OTHER COMMENTS: Normal bone densitometry of the spine. There is low bone density of the hips. The increased density of the spine does not represent a significant change. The decreased density of the left hip doesn't represent a significant change. The decreased density of the right hip does represent a significant change. The density of the spine has increased 5.9% since initial exam on 02/27/2002. The increased 0.6% since the most recent exam on 12/26/2014. The density of the left hip has decreased 12.2% since the initial exam on 10/22/2004. The density of the left hip has decreased 8.2% since the most recent exam on 12/26/2014. The density of the right hip has decreased 13.5% since the initial exam on 10/22/2004. The density of the right hip has decreased 7.7% since the most recent exam on 12/26/2014. FOLLOW-UP: Recommendation for the next bone density exam: 2 years. REE
== END ==
LOC: M WHC 10:38
PROVIDERS: ATTEND Nurse Practitioner Family
DX: Z12.31 Encounter for screening mammogram for malignant neoplasm of breast (principal); Z78.0 Asymptomatic menopausal state; Z92.23 Personal history of estrogen therapy
CPT/HCPCS: 77063; 77067; 77080; G0463

== ENCOUNTER → 2020-01-30 | Outpatient (CLI) | payer MEDICARE, BC ==
[2020-01-30 14:18] LABS: HEMATOCRIT 33.7 % (36.0-47.0); HEMOGLOBIN 10.9 g/dl (12.0-15.5); MEAN CORPUSCULAR HEMOGLOBIN 32.4 pg (27.0-33.0); MEAN CORPUSCULAR HGB CONC 32.3 g/dl (32.0-36.5); MEAN CORPUSCULAR VOLUME 100.3 fl (80.0-96.0); PLATELET COUNT, AUTOMATED 191 10^3/uL (150-450); RED BLOOD COUNT 3.36 10^6/uL (4.00-5.40); WHITE BLOOD COUNT 4.1 10^3/uL (4.0-10.0)
[2020-01-30 15:01] LABS: ALBUMIN 4.1 GM/DL (3.2-5.2); BILIRUBIN,TOTAL 0.7 MG/DL (0.2-1.0); CALCIUM LEVEL 8.7 MG/DL (8.8-10.2); CHOLESTEROL RISK RATIO 2.491 (<5); CREATININE FOR GFR 1.06 MG/DL (0.55-1.30); FREE T4 1.28 NG/DL (0.76-1.46); GLOMERULAR FILTRATION RATE 53.5 (>39); PERCENT SATURATION 46.7 % (13.2-45.0); POTASSIUM SERUM 4.4 MEQ/L (3.5-5.1); THYROID STIMULATING HORMONE 0.244 uIU/ML (0.358-3.740)
== END ==
LOC: M WUC 10:33
PROVIDERS: ATTEND Family Medicine
DX: E74.9 Disorder of carbohydrate metabolism, unspecified (principal); I11.9 Hypertensive heart disease without heart failure; E03.9 Hypothyroidism, unspecified; E78.2 Mixed hyperlipidemia; D50.8 Other iron deficiency anemias; Z79.899 Other long term (current) drug therapy

== ENCOUNTER → 2020-02-07 | Outpatient (CLI) | payer MEDICARE, BC, OTHER ==
[~2020-02-07] MED LIST changes: +ACET325C5 PO; +AMLO1TAB24 PO; -AMLO5TAB6 PO; +CETI-24 PO; +D 50CAP2 PO; +D31000TA2 PO; +IRON65TA2 PO; +LEVO100T5 PO; -LISI40TA PO; +LISI40TA4 PO; +MAGN400C PO; +PANT40TA29 PO; -PANT40TA3 PO; +PRESCAP PO; +SUCR1ORA PO
--- NOTE | 2020-02-07 16:14 | REP ---
CHEST, TWO VIEWS: COMPARISON: 01/27/2011 Two views of the chest are performed and demonstrate no acute infiltration. There is some minor atelectatic change in each lung base. The heart is not enlarged. There is calcification and tortuosity of the thoracic aorta. The mediastinal silhouette is unchanged. There are mild degenerative changes of the spine. IMPRESSION: No active pulmonary disease. Consider CT chest for further evaluation. Electronically Signed by Michael Almanza MD 02/07/2020 04:49 P
== END ==
LOC: M ADAMS 11:50
PROVIDERS: ATTEND Family Medicine
DX: R05 Cough (principal)
CPT/HCPCS: 71046; G0463

== ENCOUNTER → 2020-03-11 | Outpatient (CLI) | payer MEDICARE, BC, OTHER ==
[~2020-03-11] MED LIST changes: -ACET325C5 PO; -D 50CAP2 PO; +LISI40TA PO; -LISI40TA4 PO; -MAGN400C PO; -PRESCAP PO
== END ==
LOC: M LABSMTC 12:54
PROVIDERS: ATTEND Family Medicine
DX: Z11.59 Encounter for screening for other viral diseases (principal)
CPT/HCPCS: C9803; U0003

== ENCOUNTER 2020-03-29 13:36 | Inpatient (IN) | payer MEDICARE, BC, OTHER ==
[~2020-03-29] VITALS: Ht 162.6 cm; Wt 71.4 kg
[2020-03-29] VITALS (9 sets, daily range): BP systolic 130–181; BP diastolic 54–76
[~2020-03-29 13:36] MED LIST changes: -CETI-24 PO; -D31000TA2 PO; -IRON65TA2 PO; -LEVO100T5 PO; -SUCR1ORA PO
[2020-03-29 15:00] LABS: BASO % 0.2 % (0.0-1.0); LYMPH # 0.8 10^3/uL (1.5-5.0); LYMPH % 12.2 % (24.0-44.0); MEAN CORPUSCULAR HEMOGLOBIN 31.5 pg (27.0-33.0); MEAN CORPUSCULAR HGB CONC 29.3 g/dl (32.0-36.5); MEAN CORPUSCULAR VOLUME 107.5 fl (80.0-96.0); MONO # 0.5 10^3/uL (0.0-0.8); MONO % 7.7 % (0.0-5.0); NEUTROPHILS # 5.1 10^3/uL (1.5-8.5); NEUTROPHILS % 79.3 % (36.0-66.0); PLATELET COUNT, AUTOMATED 193 10^3/uL (150-450); RED BLOOD COUNT 1.46 10^6/uL (4.00-5.40); WHITE BLOOD COUNT 6.4 10^3/uL (4.0-10.0)
[2020-03-29 15:08] LABS: HEMATOCRIT 15.7 % (36.0-47.0); HEMOGLOBIN 4.6 g/dl (12.0-15.5)
[2020-03-29 15:13] LABS: INR 1.47; PROTHROMBIN TIME 17.6 SECONDS (11.8-14.0)
[2020-03-29 15:51] LABS: ALBUMIN 3.7 GM/DL (3.2-5.2); BILIRUBIN,DIRECT 0.1 MG/DL (0.0-0.2); BILIRUBIN,TOTAL 0.5 MG/DL (0.2-1.0); CALCIUM LEVEL 7.9 MG/DL (8.8-10.2); CK-MB VALUE MASS 1.5 NG/ML (<3.6); CREATININE FOR GFR 1.41 MG/DL (0.55-1.30); FREE T4 1.43 NG/DL (0.76-1.46); GLOMERULAR FILTRATION RATE 38.5 (>39); MB/CK RELATIVE INDEX 1.3 (< OR =4); POTASSIUM SERUM 4.3 MEQ/L (3.5-5.1); THYROID STIMULATING HORMONE 2.12 uIU/ML (0.358-3.740); TOTAL PROTEIN 6.3 GM/DL (6.4-8.2); TROPONIN I 0.02 NG/ML (< 0.10)
[2020-03-29] MEDS ORDERED: LEVO100T5 PO (15:53)
[2020-03-29] MEDS ORDERED: D31000TA2 PO (15:53)
[2020-03-29] MEDS ORDERED: IRON65TA2 PO (15:53)
[2020-03-29] MEDS ORDERED: CETI-24 PO (15:53)
[2020-03-29] MEDS ORDERED: ACETAMINOPHEN TAB 650MG DOSE (2X325MG) PO PRN (16:30)
--- NOTE | 2020-03-29 17:09 | HPEPDOC ---
General Date of Admission Mar 29, 2020 at 16:29 Date of Service: Mar 29, 2020 Chief Complaint The patient is a 79-year-old female who presented to the emergency room with shortness of breath History of Present Illness Patient is a 79-year-old female with a PMHx of Paroxysmal A. fib (on Eliquis), Hx of PVD (s/p L LE stent (05/2019) and R iliac stent [>2 years ago]), HTN, DLP, Hypothyroidism, Hx of TIA, who presented to the hospital with complaints of shortness of breath. Patient reports that she has been experiencing shortness of breath progressively over the course of 1 month. Patient notes that initially she was experiencing it with exertion but now experiences it at rest. Patient had been following with cardiology who is in the process of getting her evaluated for congestive heart failure with an echocardiogram scheduled for next week. Patient denies any significant cough, has not experience any fevers but did report some chills.. She has been experiencing progressive lower extremity swelling and was advised to increase the dose of her diuretic therapy. Patient denies any chest pain or palpitations. Patient has experiencing some heartburn. Denies any abdominal discomfort. Reports that she has experiencing diarrhea that occurs periodically. Patient describes discomfort. We will as dark. He notes that the dark stool has been an ongoing issue ever since she started iron supplementation in 08/2019. Patient denies any prior history of heart attacks, never has had a stress test or cardiac.. She does report a stent in her left lower extremity completed 05/2019 and a right iliac stent completed greater than 2 years ago. . She continues to take aspirin and Eliquis (re: A. fib). Home Medications Scheduled Amlodipine Besylate (Amlodipine Besylate) 5 Mg Tablet, 5 MG PO QHS, (Reported) Apixaban (Eliquis) 5 Mg Tab, 5 MG PO BID, (Reported) Aspirin (Aspirin) 81 Mg Chw, 81 MG PO DAILY, (Reported) Baclofen (Baclofen) 10 Mg Tab, 20 MG PO QHS, (Reported) Cetirizine HCl (Cetirizine HCl) 10 Mg Tablet, 10 MG PO DAILY, (Reported) Cholecalciferol (Vitamin D3) (Vitamin D3) 1,000 Unit Tablet, 1,000 UNITS PO QHS, (Reported) Dofetilide (Dofetilide) 250 Mcg Capsule, 250 MCG PO BID, (Reported) Ferrous Sulfate (Iron) 325 Mg Tablet, 325 MG PO DAILY, (Reported) Furosemide (Furosemide) 20 Mg Tablet, 20 MG PO DAILY, (Reported) LAST 3 DAYS PT HAS TAKEN 40MG Levothyroxine Sodium (Levothyroxine Sodium) 100 Mcg Tablet, 100 MCG PO DAILY, (Reported) Lisinopril (Lisinopril) 40 Mg Tab, 20 MG PO QHS, (Reported) Pantoprazole Sodium (Pantoprazole Sodium) 40 Mg Tab, 40 MG PO DAILY, (Reported) Simvastatin (Simvastatin) 40 Mg Tab, 40 MG PO QHS, (Reported) Vit C/E/Zn/Coppr/Lutein/Zeaxan (Preservision Areds 2 Softgel) 1 Each Capsule, 1 EACH PO BID, (Reported) Allergies Coded Allergies: bupropion (Verified Allergy, Unknown, HIVES, 03/29/20) spironolactone (Verified Adverse Reaction, Intermediate, jittery, 11/10/19) Past Medical History Medical History Paroxysmal A. fib (on Eliquis), Hx of PVD (s/p L LE stent (05/2019) and R iliac stent [>2 years ago]), HTN, DLP, Hypothyroidism, Hx of TIA Surgical History Positive for cataract surgery Right foot surgery Tubal ligation Thyroidectomy Peripheral vascular interventions Family History - Father passed from stomach cancer and mother with a history of Alzheimers dementia Social History - Denies the use of illicit drugs; patient reports that she quit smoking 16 years ago, drinks alcohol periodically - Denies recent travel or sick contacts - Lives with significant other, but is - Occupation; worked in a long-term system Review of Systems Other systems 10 point review of systems complete, all negative otherwise stated in HPI Vital Signs - Vitals: BP 147/64, HR 58, RR 18, Sat 96%NC2L, Temp 98.4F - General: Lying in bed, No acute distress, speaking in full sentences, AAOx3 - HEENT: NC, AT, PERRLA - CVS: +S1S2 - Lungs: Fair air entry bilaterally, No appreciable wheezing / rales / rhonchi - Abdomen: Soft, Non-distended, Non-tender - Extremities: 2+ pitting edema bilaterally, No calf tenderness - Neuro: No focal motor or sensory deficit - Skin: No visible rashes Laboratory Data Labs 24H Laboratory Tests 2 03/29/20 13:47: Immature Granulocyte % (Auto) 0.6, Neutrophils (%) (Auto) 79.3H, Lymphocytes (%) (Auto) 12.2L, Monocytes (%) (Auto) 7.7H, Eosinophils (%) (Auto) 0.0, Basophils (%) (Auto) 0.2, Neutrophils # (Auto) 5.1, Lymphocytes # (Auto) 0.8L, Monocytes # (Auto) 0.5, Eosinophils # (Auto) 0.0, Basophils # (Auto) 0.0, Reticulocyte # (auto) 148.2H, Nucleated Red Blood Cells % (auto) 0.0, Percent Reticulocyte Count 10.3H, Reticulocyte Hemoglobin Equivalent 30.4, Anion Gap 8, Glomerular Filtration Rate 38.5L, Calcium Level 7.9L, Total Bilirubin 0.5, Direct Bilirubin 0.1, Aspartate Amino Transf (AST/SGOT) 32, Alanine Aminotransferase (ALT/SGPT) 21, Alkaline Phosphatase 49, Total Creatine Kinase 115, Creatine Kinase MB 1.5, Creatine Kinase MB Relative Index 1.30, Troponin I 0.02, VZ-Ozd-O-Type Natriuretic Peptide 1799H, Total Protein 6.3L, Albumin 3.7, Albumin/Globulin Ratio 1.4, Thyroid Stimulating Hormone (TSH) 2.120, Free Thyroxine 1.43 03/29/20 13:49: Prothrombin Time 17.6H, Prothromb Time International Ratio 1.47 03/29/20 14:47: POC pH (Misc Panel) 7.445, POC Base Excess (Misc Panel) -2.0, POC Saturated Percent O2 (Misc) 100H, POC pO2 (Misc Panel) 173.0H, POC pCO2 (Misc Panel) 31.9L, POC HCO3 (Misc Panel) 21.9L, POC Total CO2 (Misc Panel) 23.0 CBC/BMP Laboratory Tests 03/29/20 13:47 Microbiology Microbiology 03/29/20 Blood Culture, Received Pending 03/29/20 Respiratory Virus Panel (PCR) ([facility]) - Final, Complete 03/29/20 Blood Culture, Received Pending Plan / VTE VTE Prophylaxis Ordered?: Yes Plan Plan Symptomatic anemia - possibly 2/2 GI bleed - Patient presented with worsening shortness of breath, but denies any chest pain / palpitations - Is hemodynamically stable; hypertensive in the ER - Hemoglobin of 4.6; baseline hemoglobin of approximately 9-10 - Will check Iron panel / B12 / Folate / Reticulocyte count - Will transfuse 4 units PRBC - Will continue with telemetry - Will start Protonix and Carafate - Discussed case with general surgery; will be on consultation; will keep patient NPO at this time LE swelling - possibly 2/2 decompensated CHF - possibly 2/2 anemia - Lungs appear clear to auscultation without - Lower extremities do reveal 2+ pitting edema - CXR 03/29: reviewed and does not reveal any evidence of vascular congestion - Will hold diuretics for now; however may require Furosemide - Will continue to monitor oxygenation - Will check ECHO Paroxysmal A. fib - Patient is currently rate controlled - EKG was reviewed and it was without any ischemic changes - Troponin 1 set is negative; will continue to trend - c/w Dofetilide (allow home medication use while inpatient) - Will hold off on anticoagulation therapy at this time (re: GI bleed) Hx of PVD - s/p L LE stent (05/2019) - R iliac stent [>2 years ago] - c/w Simvastatin - Will hold ASA and Eliquis for now; however will consider resuming anti- platelet therapy within 24-48 hours once Hg improves HTN - Currently patient is hypertensive - Will hold Amlodipine, Lisinopril and Furosemide DLP - c/w Simvastatin Hypothyroidism - c/w Levothyroxine Hx of TIA - Will hold ASA and Eliquis DVT prophylaxis - Will start TEDs/Sequentials DESI PERDOMO MD Mar 29, 2020 17:09
[2020-03-29] MEDS: PANTOPRAZOLE SODIUM 40 MG in D5W 50 ML IV SCH ×2 (17:31→22:08)
[2020-03-29 17:55] LABS: CK-MB VALUE MASS 1.6 NG/ML (<3.6); MB/CK RELATIVE INDEX 1.7 (< OR =4); TROPONIN I 0.03 NG/ML (< 0.10)
[2020-03-29] MEDS: SUCRALFATE SUSP 1GM/10ML UD PO SCH ×2 (18:56→23:29)
[2020-03-29] MEDS: amLODIPine 5 MG TAB PO SCH (18:57)
[2020-03-29] MEDS: BACLOFEN 10 MG TAB PO SCH (20:06)
[2020-03-29] MEDS: VITAMIN D 1,000 INTERNATIONAL UNITS TABLET PO SCH (20:06)
[2020-03-29] MEDS: SIMVASTATIN 40 MG TAB PO SCH (20:07)
--- NOTE | 2020-03-29 21:38 | ECGEPIP ---
[facility] - ED Test Date: 2020-03-29 Pat Name: JOHN SEXTON Department: Room: - Gender: Female [employer] V[employer]: : 1940 Requested By: Mary Lou Reis Order Number: [id number] Reading MD: Stephanie Du Measurements Intervals [place] Rate: 60 P: MN: 0 QRS: 54 QRSD: 90 T: 115 QT: 392 QTc: 393 Interpretive Statements SINUS RHYTHM NONSPECIFIC ST & T-WAVE ABNORMALITY Electronically Signed on 03-29-2020 21:38:20 EDT by Stephanie Du
[2020-03-29] MEDS: DOFETILIDE 250 MCG PO SCH (23:29)
[2020-03-30] VITALS (10 sets, daily range): BP systolic 111–153; BP diastolic 54–70
[2020-03-30 01:55] LABS: CK-MB VALUE MASS 1.2 NG/ML (<3.6); MB/CK RELATIVE INDEX 1.52 (< OR =4); TROPONIN I 0.03 NG/ML (< 0.10)
[2020-03-30] MEDS: PANTOPRAZOLE SODIUM 40 MG in D5W 50 ML IV SCH ×2 (03:21→08:02)
[2020-03-30 05:20] LABS: BASO % 0.8 % (0.0-1.0); EOS # 0.1 10^3/uL (0.0-0.5); EOS % 1.4 % (0.0-3.0); HEMATOCRIT 28.1 % (36.0-47.0); HEMOGLOBIN 8.9 g/dl (12.0-15.5); LYMPH # 1.3 10^3/uL (1.5-5.0); LYMPH % 24.3 % (24.0-44.0); MEAN CORPUSCULAR HEMOGLOBIN 30.6 pg (27.0-33.0); MEAN CORPUSCULAR HGB CONC 31.7 g/dl (32.0-36.5); MEAN CORPUSCULAR VOLUME 96.6 fl (80.0-96.0); MONO # 0.6 10^3/uL (0.0-0.8); MONO % 11.6 % (0.0-5.0); NEUTROPHILS # 3.2 10^3/uL (1.5-8.5); NEUTROPHILS % 61.7 % (36.0-66.0); PLATELET COUNT, AUTOMATED 152 10^3/uL (150-450); RED BLOOD COUNT 2.91 10^6/uL (4.00-5.40); WHITE BLOOD COUNT 5.2 10^3/uL (4.0-10.0)
[2020-03-30 05:44] LABS: CALCIUM LEVEL 7.4 MG/DL (8.8-10.2); CREATININE FOR GFR 1.18 MG/DL (0.55-1.30); GLOMERULAR FILTRATION RATE 47.3 (>39); MAGNESIUM LEVEL 2.6 MG/DL (1.8-2.4); POTASSIUM SERUM 4.2 MEQ/L (3.5-5.1)
[2020-03-30] MEDS: SUCRALFATE SUSP 1GM/10ML UD PO SCH ×4 (06:01→23:30)
[2020-03-30] MEDS: LEVOTHYROXINE 100MCG TABLET (0.1MG) PO SCH (06:01)
[2020-03-30] MEDS: CETIRIZINE (ZyrTEC) 10 MG TAB PO SCH (08:02)
[2020-03-30] MEDS: FERROUS SULFATE 325MG TAB PO SCH (08:02)
[2020-03-30] MEDS: ASPIRIN 81 MG CHEW TABLET PO SCH (08:02)
[2020-03-30] MEDS: DOFETILIDE 250 MCG PO SCH ×2 (08:02→20:30)
--- NOTE | 2020-03-30 08:42 | REP ---
CHEST, SINGLE VIEW: Single view of the chest is performed and compared to prior study of 02/07/2020. Heart is slightly enlarged. There is no acute infiltrate or pulmonary edema. There is calcification and tortuosity of the thoracic aorta. Mediastinal silhouette is unchanged. IMPRESSION: No acute pulmonary disease. Electronically Signed by Michael Almanza MD 03/31/2020 11:24 P
--- NOTE | 2020-03-30 12:54 | IPNPDOC ---
Text Note Date of Service The patient was seen on 03/30/20. NOTE Hospitalist Progress Note Subjective: Patient is feeling quite well this morning. She reports that she is not nearly as fatigued, she was even able to walk to the bathroom and back without to much issue. She never really had any abdominal pain, and does not have any at this time either. Her stools have been black for at least the last 7 months since she started taking iron pills. She did have one episode of diarrhea yesterday, however she has not had any additional episodes. Otherwise, the remainder review of systems is negative. Objective: General: Awake, alert, oriented 3. She is not in any acute distress. HEENT: Head normocephalic, atraumatic, sclera are nonicteric. Hearing is grossly intact to conversation. Respiratory: Clear to auscultation bilaterally with no wheezes, rales, or rhonchi. Cardiovascular: Regular rate and rhythm, with no rubs, gallops, or murmur. Abdomen: Soft, nontender, nondistended, no hepatosplenomegaly appreciated. Bowel sounds present. Extremities: 2+ pulses in the radial and dorsalis pedis bilaterally. No evidence of clubbing or cyanosis. No lower extremity edema Assessment/Plan: Symptomatic anemia, likely secondary to slow GI bleed -Remains hemodynamically stable, after 4 units of blood and her H&H is within acceptable limits. Her reticulocyte index is 1.54, which is less than 2, which indicates inadequate bone marrow response. Iron panel, B12, folate, all within normal limits, continue with iron supplementation as at home. Continue with telemetry, Protonix, Carafate. Protonix was switched PO. We will start her on a clear liquid diet at this time, and advance as tolerated. [facility], and then again tomorrow morning at 6 AM to make sure that she is not trending down once again. Lower extremity swelling -Now resolved. Paroxysmal atrial fibrillation -Continues to be rate controlled, and troponins negative, continue with home dose of Dofetilide. Continue to hold anticoagulation at this time until we are reassured that her H&H is stabilized. History of peripheral vascular disease -Hold aspirin and Eliquis for now, may resume when H&H is stable. -Continue home dose of simvastatin Hypertension -Continues to be within acceptable limits Dyslipidemia -Continue home dose of simvastatin Hypothyroidism -Continue home dose of levothyroxine History of TIA -Resume antiplatelet and anticoagulation when H&H is stable DVT prophylaxis -Continue with teds/sequentials VS,Fishbone, I+O VS, Fishbone, I+O Laboratory Tests 03/29/20 13:47 03/30/20 04:46 Vital Signs Date Time Temp Pulse Resp B/P (MAP) Pulse Ox O2 Delivery O2 Flow Rate FiO2 03/30/20 12:00 97.5 50 18 150/69 (96) 95 Room Air 03/29/20 21:20 2.0 I&O- Last 24 Hours up to 6 AM 03/30/20 06:00 Intake Total 1750 ml Balance 1750 ml POLY BOETLLO DO Mar 30, 2020 12:54
[2020-03-30 17:40] LABS: HEMATOCRIT 31.3 % (36.0-47.0); HEMOGLOBIN 9.8 g/dl (12.0-15.5)
[2020-03-30] MEDS: BACLOFEN 10 MG TAB PO SCH (20:28)
[2020-03-30] MEDS: VITAMIN D 1,000 INTERNATIONAL UNITS TABLET PO SCH (20:29)
[2020-03-30] MEDS: SIMVASTATIN 40 MG TAB PO SCH (20:29)
[2020-03-30] MEDS: amLODIPine 5 MG TAB PO SCH (20:29)
[2020-03-30] MEDS: PANTOPRAZOLE 40MG TAB (PROTONIX) PO SCH (20:29)
[2020-03-30] MEDS ORDERED: FUROSEMIDE 20 MG TAB PO ONE (20:30)
[2020-03-31] VITALS: BP 157/70
[2020-03-31 04:00] VITALS: BP 114/55
[2020-03-31 05:03] LABS: BASO % 0.7 % (0.0-1.0); EOS # 0.1 10^3/uL (0.0-0.5); EOS % 2.1 % (0.0-3.0); HEMATOCRIT 28.8 % (36.0-47.0); HEMOGLOBIN 9.2 g/dl (12.0-15.5); LYMPH % 17.2 % (24.0-44.0); MEAN CORPUSCULAR HEMOGLOBIN 31.2 pg (27.0-33.0); MEAN CORPUSCULAR HGB CONC 31.9 g/dl (32.0-36.5); MEAN CORPUSCULAR VOLUME 97.6 fl (80.0-96.0); MONO # 0.6 10^3/uL (0.0-0.8); MONO % 10.7 % (0.0-5.0); PLATELET COUNT, AUTOMATED 160 10^3/uL (150-450); RED BLOOD COUNT 2.95 10^6/uL (4.00-5.40); WHITE BLOOD COUNT 5.8 10^3/uL (4.0-10.0)
[2020-03-31 05:25] LABS: CALCIUM LEVEL 7.6 MG/DL (8.8-10.2); CREATININE FOR GFR 1.17 MG/DL (0.55-1.30); GLOMERULAR FILTRATION RATE 47.7 (>39); MAGNESIUM LEVEL 2.2 MG/DL (1.8-2.4)
[2020-03-31] MEDS: SUCRALFATE SUSP 1GM/10ML UD PO SCH ×2 (06:00→11:09)
[2020-03-31] MEDS: LEVOTHYROXINE 100MCG TABLET (0.1MG) PO SCH (06:11)
--- NOTE | 2020-03-31 07:45 | CR ---
DATE OF CONSULTATION: 03/30/2020 REASON FOR CONSULTATION: Anemia, probable gastrointestinal (GI) bleed. HISTORY OF PRESENT ILLNESS: The patient is a very pleasant 79-year-old woman who was admitted on 03/29/2020 by the hospitalist service. She had presented to the emergency department complaining of a feeling of weakness and some shortness of breath. She has a history of paroxysmal atrial fibrillation and has been on Eliquis. She has previously had anemia, which by her report responded to iron therapy as recently as the late Fall of 2018. Earlier this year, she had undergone an esophagogastroduodenoscopy (EGD) and colonoscopy by Dr. Hardin in October. These were apparently as followup of her anemia. The colonoscopy showed some small internal hemorrhoids. The colon was reportedly normal with a normal terminal ileum. Her upper endoscopy showed a normal esophagus with a few small mildly erythematous patches in the antrum of the stomach. Duodenum was normal. Biopsies of the stomach showed gastric mucosa without significant acute or chronic inflammation. She apparently did well, and in January she had labs that reveals a hemoglobin of 11, hematocrit 34. Her iron was 183 in January with a total iron-binding capacity (TIBC) of 392, a transferrin of 47 and a ferritin of 19. On presentation in the emergency department on 03/29/2020. she was found to have a hemoglobin of 5 with a hematocrit of 16%. She has not noticed any bleeding. She does report that her bowel movements are often dark but she has remained on iron. She has received 4 units of packed red blood cells. I was consulted for recommendations regarding her presumed bleeding. ALLERGIES: Are reported to BUPROPION and SPIRONOLACTONE. MEDICATIONS: Are as listed in the admitting record and include aspirin 81 mg dose and Eliquis. She is on Protonix daily. MEDICAL HISTORY: Is significant for paroxysmal atrial fibrillation, atherosclerotic peripheral vascular disease, hypertension, dyslipidemia, hypothyroidism, history of prior transient ischemic attack (TIA), and her current shortness of breath. SURGICAL HISTORY: Includes cataract surgery. She has had surgery on her right foot. She has undergone tubal ligation. She has had a thyroidectomy. She has had a right iliac stent and a left lower extremity vascular stent placed as well. FAMILY HISTORY: Indicates that her father had stomach cancer and her mother had Alzheimer's. SOCIAL HISTORY: The patient reports that she quit smoking many years ago and drinks alcohol occasionally. REVIEW OF SYSTEMS: Shows no recent chest pain or palpitations. She has had no cough or sputum production. She denies any obvious rectal bleeding. She has had no nausea, vomiting or diarrhea. She denies dysuria or hematuria. She has had no new bone or joint issues. PHYSICAL EXAMINATION: Shows a pleasant woman sitting up in the hospital bed. Her most recent vital signs reveal her to be afebrile with pulse in the mid 50s and blood pressure of 139/64 with a normal room air oxygen saturation. Skin is warm and dry. Sclerae are anicteric. The neck is supple. Heart exam shows a regular rhythm. The lungs are clear. The abdomen is flat. She has bowel sounds present. The abdomen is soft and nontender without appreciable mass. LABORATORY STUDIES: Today show a white count of 5, hemoglobin of 9, hematocrit of 28, and a platelet count of 152,000 this morning. This follows a 4 unit blood transfusion after admission. Her chemistries today showed a sodium of 138, potassium 4.2, chloride 108, CO2 of 24, BUN of 33, creatinine 1.18, and a glucose of 94. IMPRESSION: The patient presented on 03/29/2020 with a marked anemia following labs in January that showed hematocrit in the low 30s. Her iron studies in January had normalized from prior levels. She has not noticed any definite bleeding but remains on iron, so her stools are frequently darkened. She is on Eliquis for her history of atrial fibrillation. She underwent endoscopies both upper and lower in October without any findings of significant concern. PLAN: I discussed with the patient that she has shown quite a significant drop in her hematocrit in a relatively short period of 2 months. There were no significant abnormalities in her colon and I think it is unlikely that she would have developed a lesion in a very short period such as this. I think it would be reasonable to consider an upper endoscopy to see if despite her current maintenance Protonix she has developed an ulcer or significant gastritis to account for her blood loss. If the repeat upper endoscopy shows nothing, then it may be reasonable to consider small bowel studies either enterography or a capsule endoscopy. The patient was counseled for an upper endoscopy and is agreeable with the plan. We will schedule this for the morning of 03/31/2020. We will keep her nothing by mouth after midnight. Her Eliquis has been held since admission and should not be an issue. MTDD
[2020-03-31 08:00] VITALS: BP 169/75
[2020-03-31] MEDS ORDERED: LIDOCAINE 2% 100MG/5ML SDV (FOR ANES.) As Ordered ONE (08:00)
[2020-03-31] MEDS ORDERED: fentaNYL 100 MCG/2 ML INJECTION (J3010) As Ordered ONE (08:00)
[2020-03-31] MEDS ORDERED: propofoL 200 MG/20 ML VIAL As Ordered ONE (08:00)
[2020-03-31] MEDS ORDERED: FUROSEMIDE 20 MG TAB PO SCH (09:00)
[2020-03-31 09:47] VITALS: BP 165/58
[2020-03-31] MEDS: FERROUS SULFATE 325MG TAB PO SCH (09:58)
[2020-03-31] MEDS: ASPIRIN 81 MG CHEW TABLET PO SCH (09:58)
[2020-03-31] MEDS: PANTOPRAZOLE 40MG TAB (PROTONIX) PO SCH (09:58)
[2020-03-31] MEDS: DOFETILIDE 250 MCG PO SCH (09:58)
[2020-03-31] MEDS: CETIRIZINE (ZyrTEC) 10 MG TAB PO SCH (09:59)
--- NOTE | 2020-03-31 11:49 | ROOR ---
Patient Name: Rehan Spangler Procedure Date: 03/31/2020 7:55 AM Date of : 1940 Age: 79 Room: Main OR Gender: Female Note Status: Finalized Procedure: Upper GI endoscopy Indications: Acute post hemorrhagic anemia Providers: Bob Lawson MD Referring MD: 2. Inpatient 2. Inpatient Requesting Provider: Medicines: Monitored Anesthesia Care Complications: No immediate complications. Procedure: Pre-Anesthesia Assessment: - Prior to the procedure, a History and Physical was performed, and patient medications and allergies were reviewed. The patient is competent. The risks and benefits of the procedure and the sedation options and risks were discussed with the patient. All questions were answered and informed consent was obtained. Patient identification and proposed procedure were verified by the physician, the nurse and the implant polisher in the procedure room. Mental Status Examination: alert and oriented. Airway Examination: normal oropharyngeal airway and neck mobility. Prophylactic Antibiotics: The patient does not require prophylactic antibiotics. Prior Anticoagulants: The patient has taken no previous anticoagulant or antiplatelet agents. ASA Grade Assessment: III - A patient with severe systemic disease. After reviewing the risks and benefits, the patient was deemed in satisfactory condition to undergo the procedure. The anesthesia plan was to use monitored anesthesia care (MAC). Immediately prior to administration of medications, the patient was re-assessed for adequacy to receive sedatives. The heart rate, respiratory rate, oxygen saturations, blood pressure, adequacy of pulmonary ventilation, and response to care were monitored throughout the procedure. The physical status of the patient was re-assessed after the procedure. The Endoscope was introduced through the mouth, and advanced to the second part of duodenum. The upper GI endoscopy was accomplished without difficulty. The patient tolerated the procedure well. Findings: 2 areas of ectopic gastric mucosa were found in the upper third of the esophagus, 15 cm from the incisors. The exam of the esophagus was otherwise normal. Patchy mildly erythematous mucosa without bleeding was found in the stomach. The examined duodenum was normal. Impression: - Ectopic gastric mucosa in the upper third of the esophagus. - Erythematous mucosa in the stomach. - Normal examined duodenum. - No specimens collected. Recommendation: - Return patient to [facility] for ongoing care. - Resume regular diet. - Continue present medications. - To visualize the small bowel, perform video capsule endoscopy to be considered. Bob Lawson MD Bob Lawson MD 03/31/2020 11:49:23 AM Electronically signed by Bob Lawson MD Number of Addenda: 0 Note Initiated On: 03/31/2020 7:55 AM Estimated Blood Loss: Estimated blood loss: none.
[2020-03-31 12:00] VITALS: BP 120/59
[2020-03-31] MEDS ORDERED: SLF 3 ML SYR IV PRN (12:00)
[2020-03-31] MEDS ORDERED: SLF 3 ML SYR IV SCH (14:00)
[2020-03-31] MEDS ORDERED: PANT40TA29 PO (15:13)
[2020-03-31] MEDS ORDERED: SUCR1ORA PO (15:13)
--- NOTE | 2020-03-31 17:59 | DS.PDOC ---
Discharge Summary General Date of Admission Mar 29, 2020 at 16:29 Date of Discharge March 31, 2020 Primary Care Physician: Karlo Lucero MD Specialist/Consultants Involve: Bob Lawson Discharge Summary PROCEDURES PERFORMED DURING STAY: [EGD, transfusion PRBCs]. ADMITTING DIAGNOSES: 1. . DISCHARGE DIAGNOSES: 1. . COMPLICATIONS/CHIEF COMPLAINT: Anemia,Dyspnea,Gi Bleeding. HISTORY OF PRESENT ILLNESS: . HOSPITAL COURSE: . DISCHARGE MEDICATIONS: Please see below. ALLERGIES: Please see below. PHYSICAL EXAMINATION ON DISCHARGE: VITAL SIGNS: Please see below. GENERAL: [Awake, alert, conversant, no residual sedation effect] HEENT: [Neck is supple with no adenopathy or thyromegaly, oral mucosa is moist and there is no pallor] CARDIOVASCULAR EXAMINATION: [Regular rate and rhythm, normal S1 and S2] RESPIRATORY EXAMINATION: [Clear to auscultation] ABDOMINAL EXAMINATION: [Soft, nontender, nondistended] EXTREMITIES: [No peripheral edema, pedal pulses palpable, no appreciable joint deformity] SKIN: [No lesions, rashes or jaundice] NEUROLOGICAL EXAMINATION: [No focal neuromotor or sensory deficit] PSYCHIATRIC EXAMINATION: [Mildly anxious affect] LABORATORY DATA: Please see below. IMAGING: PROGNOSIS: ACTIVITY: [As tolerated]. DIET: [As tolerated] DISCHARGE PLAN: DISPOSITION: 01 Home, Self-Care. DISCHARGE INSTRUCTIONS: 1. . ITEMS TO FOLLOWUP ON ON OUTPATIENT: 1. . DISCHARGE CONDITION: [Stable]. TIME SPENT ON DISCHARGE: [35] minutes. Vital Signs/I&Os Vital Signs Date Time Temp Pulse Resp B/P (MAP) Pulse Ox O2 Delivery O2 Flow Rate FiO2 03/31/20 12:00 98.9 56 20 120/59 (79) 98 Room Air 03/29/20 21:20 2.0 I&O- Last 24 Hours up to 6 AM 03/31/20 05:59 Intake Total 1410 ml Output Total 0 ml Balance 1410 ml Laboratory Data Labs 24H Laboratory Tests 2 03/31/20 04:42: Immature Granulocyte % (Auto) 0.3, Neutrophils (%) (Auto) 69.0H, Lymphocytes (%) (Auto) 17.2L, Monocytes (%) (Auto) 10.7H, Eosinophils (%) (Auto) 2.1, Basophils (%) (Auto) 0.7, Neutrophils # (Auto) 4.0, Lymphocytes # (Auto) 1.0L, Monocytes # (Auto) 0.6, Eosinophils # (Auto) 0.1, Basophils # (Auto) 0.0, Nucleated Red Blood Cells % (auto) 0.0, Anion Gap 6L, Glomerular Filtration Rate 47.7, Calcium Level 7.6L, Magnesium Level 2.2 CBC/BMP Laboratory Tests 03/31/20 04:42 Microbiology Microbiology 03/29/20 Blood Culture - Preliminary, Resulted No Growth after 48 hours. All Specime... 03/29/20 Respiratory Virus Panel (PCR) ([facility]) - Final, Complete 03/29/20 Blood Culture - Preliminary, Resulted No Growth after 48 hours. All Specime... Discharge Medications Scheduled Amlodipine Besylate (Amlodipine Besylate) 5 Mg Tablet, 5 MG PO QHS, (Reported) Aspirin (Aspirin) 81 Mg Chw, 81 MG PO DAILY, (Reported) Baclofen (Baclofen) 10 Mg Tab, 20 MG PO QHS, (Reported) Cetirizine HCl (Cetirizine HCl) 10 Mg Tablet, 10 MG PO DAILY, (Reported) Cholecalciferol (Vitamin D3) (Vitamin D3) 1,000 Unit Tablet, 1,000 UNITS PO QHS, (Reported) Dofetilide (Dofetilide) 250 Mcg Capsule, 250 MCG PO BID, (Reported) Ferrous Sulfate (Iron) 325 Mg Tablet, 325 MG PO DAILY, (Reported) Furosemide (Furosemide) 20 Mg Tablet, 20 MG PO DAILY, (Reported) LAST 3 DAYS PT HAS TAKEN 40MG Levothyroxine Sodium (Levothyroxine Sodium) 100 Mcg Tablet, 100 MCG PO DAILY, (Reported) Lisinopril (Lisinopril) 40 Mg Tab, 20 MG PO QHS, (Reported) Pantoprazole Sodium (Pantoprazole Sodium) 40 Mg Tab, 40 MG PO BID Simvastatin (Simvastatin) 40 Mg Tab, 40 MG PO QHS, (Reported) Sucralfate (Sucralfate) 1 Gm/10 Ml Oral.susp, 1 GM PO Q6H Vit C/E/Zn/Coppr/Lutein/Zeaxan (Preservision Areds 2 Softgel) 1 Each Capsule, 1 EACH PO BID, (Reported) Allergies Coded Allergies: bupropion (Verified Allergy, Unknown, HIVES, 03/29/20) spironolactone (Verified Adverse Reaction, Intermediate, jittery, 11/10/19) BERNA GANT MD Mar 31, 2020 17:59
--- NOTE | 2020-04-01 06:26 | ECHO ---
DATE OF PROCEDURE: 03/30/2020 DATE OF : 1940 AGE: 79 GENDER: Female HEIGHT: 64 inches WEIGHT: 157 pounds BODY SURFACE AREA: 1.76 m2 INPATIENT: PCU - Room 3214 REFERRING PHYSICIAN: Dr. Sylvia Monahan INDICATION: Edema. Shortness of breath. MEASUREMENTS 2-D Measurements: RV: 4.6 cm LV: 4.2 cm Septum: 1.1 cm Posterior wall: 1.1 cm Aortic root: 3.2 cm Ascending aorta: 3.7 cm LV: 4.2 cm LVEF: 65% Doppler Measurements: AV: 3.4 m/s LVOT: 1.1 m/s LVOT diameter: 2.0 cm Mean AV gradient: 25 mmHg Dimensionless index: 0.3 MV - E 139 A 33 EA ratio 4.2 Early mitral deceleration time: 156 ms E prime medial: 9.8 A prime medial: 5.8 E prime lateral: 10.4 Average E/E prime ratio: 13.4/PCPW: 18.6 mmHg PV: 1.5 m/s Pulmonary artery acceleration time: 90 ms RVSP: 62 mmHg IVC: 2.0 cm COMMENTS: Sinus bradycardia without intraventricular conduction disturbance. M-mode and two-dimensional echocardiography was performed with pulsed, continuous wave, color flow and tissue Doppler studies. Left ventricular wall thickness upper limits of normal. Normal left ventricular cavity size and wall motion. Mildly dilated left atrium with grade 2 LV diastolic dysfunction with current estimated mean left atrial pressure mildly increased. At least mildly dilated right heart chambers with normal wall motion and Doppler evidence of severe pulmonary hypertension. Mildly dilated IVC with absent respiratory collapse in keeping with an elevated central venous pressure/right heart failure. Normal aortic root size with slightly dilated ascending aorta. Bicuspid aortic valve with moderate aortic stenosis and moderate insufficiency. (Aortic regurgitation pressure half-time 449 ms). Moderate mitral annular calcification without inflow tract obstruction, but at least moderate insufficiency. Normal appearing tricuspid valve with fairly severe tricuspid insufficiency. No apparent intracardiac mass or pericardial effusion.
== END 2020-03-31 15:54 | disposition home or self-care (01) | DRG 812 ==
LOC: M ED 13:36 → M ED INP 16:29 → ENRESERV 17:01 → M PCU 18:29
PROVIDERS: ADMIT Internal Medicine; ATTEND Internal Medicine
PROC: 30233N1 Transfusion of Nonautologous Red Blood Cells into Peripheral Vein, Percutaneous Approach (ICD-10-PCS; 2020-03-29)
PROC: 0DJ08ZZ Inspection of Upper Intestinal Tract, Via Natural or Artificial Opening Endoscopic (ICD-10-PCS; principal; 2020-03-31 08:00)
DX: D50.0 Iron deficiency anemia secondary to blood loss (chronic) (principal); K92.2 Gastrointestinal hemorrhage, unspecified; I48.0 Paroxysmal atrial fibrillation; Z79.01 Long term (current) use of anticoagulants; I73.9 Peripheral vascular disease, unspecified; I10 Essential (primary) hypertension; E03.9 Hypothyroidism, unspecified; Z86.73 Personal history of transient ischemic attack (TIA), and cerebral infarction without residual deficits; Z79.82 Long term (current) use of aspirin; Z79.899 Other long term (current) drug therapy; Z88.6 Allergy status to analgesic agent; Z88.8 Allergy status to other drugs, medicaments and biological substances; E78.5 Hyperlipidemia, unspecified; I25.2 Old myocardial infarction

== ENCOUNTER → 2020-05-16 | Outpatient (REF) | payer MEDICARE, BC, OTHER ==
[~2020-05-16] MED LIST changes: +CETI-24 PO; +D31000TA2 PO; +IRON65TA2 PO; +LEVO100T5 PO; +SUCR1ORA PO
[2020-05-16 15:08] LABS: HEMATOCRIT 34.9 % (36.0-47.0); HEMOGLOBIN 10.8 g/dl (12.0-15.5); MEAN CORPUSCULAR HEMOGLOBIN 30.9 pg (27.0-33.0); MEAN CORPUSCULAR HGB CONC 30.9 g/dl (32.0-36.5); PLATELET COUNT, AUTOMATED 219 10^3/uL (150-450); RED BLOOD COUNT 3.49 10^6/uL (4.00-5.40); WHITE BLOOD COUNT 4.3 10^3/uL (4.0-10.0)
[2020-05-16 15:26] LABS: ALBUMIN 4.3 GM/DL (3.2-5.2); BILIRUBIN,TOTAL 0.6 MG/DL (0.2-1.0); CALCIUM LEVEL 8.9 MG/DL (8.8-10.2); CREATININE FOR GFR 1.18 MG/DL (0.55-1.30); GLOMERULAR FILTRATION RATE 47.3 (>39); PERCENT SATURATION 25.3 % (13.2-45.0); POTASSIUM SERUM 4.7 MEQ/L (3.5-5.1); TOTAL PROTEIN 7.3 GM/DL (6.4-8.2)
== END ==
LOC: M LABDRWAD 11:20
PROVIDERS: ATTEND Family Medicine
DX: R19.7 Diarrhea, unspecified (principal); D50.9 Iron deficiency anemia, unspecified
CPT/HCPCS: 36415; 80053; 82728; 83550; 85027; G0463

== ENCOUNTER → 2020-05-21 | Outpatient (REF) | payer MEDICARE, BC, OTHER | LOC: M LAB REF 08:00 | PROVIDERS: ATTEND Family Medicine | DX: R19.7 Diarrhea, unspecified (principal); D50.9 Iron deficiency anemia, unspecified ==

== ENCOUNTER → 2020-07-04 | Outpatient (REF) | payer MEDICARE, OTHER ==
[2020-07-04 16:53] LABS: HEMATOCRIT 29.2 % (36.0-47.0); HEMOGLOBIN 9.1 g/dl (12.0-15.5); MEAN CORPUSCULAR HEMOGLOBIN 31.8 pg (27.0-33.0); MEAN CORPUSCULAR HGB CONC 31.2 g/dl (32.0-36.5); MEAN CORPUSCULAR VOLUME 102.1 fl (80.0-96.0); PLATELET COUNT, AUTOMATED 218 10^3/uL (150-450); RED BLOOD COUNT 2.86 10^6/uL (4.00-5.40); WHITE BLOOD COUNT 3.6 10^3/uL (4.0-10.0)
[2020-07-04 17:13] LABS: CALCIUM LEVEL 8.9 MG/DL (8.8-10.2); CREATININE FOR GFR 1.42 MG/DL (0.55-1.30); GLOMERULAR FILTRATION RATE 38.2 (>39); MAGNESIUM LEVEL 2.6 MG/DL (1.8-2.4); POTASSIUM SERUM 4.4 MEQ/L (3.5-5.1)
[2020-07-09 17:08] LABS: Chitobioside Carbohydrat (ACCA 8 units (0-90); Laminaribioside Carbohyd (ALCA 4 units (0-60); Mannobioside Carbohydrat (AMCA 4 units (0-100); Saccharomyces cerevisiae IgG A 3 units (0-50)
== END ==
LOC: M SFHCADAM 11:56
PROVIDERS: ATTEND Family Medicine
DX: D50.8 Other iron deficiency anemias (principal); K52.9 Noninfective gastroenteritis and colitis, unspecified
CPT/HCPCS: 80048; 82728; 83516; 83550; 83735; 85027; 85046; 87507; G0463

== ENCOUNTER → 2020-08-06 | Outpatient (CLI) | payer MEDICARE, OTHER ==
[2020-08-06 13:12] LABS: HEMATOCRIT 24.6 % (36.0-47.0); HEMOGLOBIN 7.5 g/dl (12.0-15.5); MEAN CORPUSCULAR HEMOGLOBIN 32.9 pg (27.0-33.0); MEAN CORPUSCULAR HGB CONC 30.5 g/dl (32.0-36.5); MEAN CORPUSCULAR VOLUME 107.9 fl (80.0-96.0); PLATELET COUNT, AUTOMATED 223 10^3/uL (150-450); RED BLOOD COUNT 2.28 10^6/uL (4.00-5.40); WHITE BLOOD COUNT 4.4 10^3/uL (4.0-10.0)
[2020-08-06 13:51] LABS: PERCENT SATURATION 45.9 % (13.2-45.0)
== END ==
LOC: M WUC 10:53
PROVIDERS: ATTEND Family Medicine
DX: D50.8 Other iron deficiency anemias (principal)

== ENCOUNTER → 2020-08-07 | Outpatient (CLI) | payer MEDICARE, BC, OTHER | LOC: M LAB 12:56 | PROVIDERS: ATTEND Family Medicine | DX: D50.9 Iron deficiency anemia, unspecified (principal) ==

== ENCOUNTER 2020-08-08 07:53 | Outpatient (CLI) | payer MEDICARE, BC, OTHER ==
[~2020-08-08] VITALS: Ht 162.6 cm; Wt 71.4 kg
[2020-08-08] VITALS (7 sets, daily range): BP systolic 121–173; BP diastolic 51–80
== END 2020-08-08 11:35 | disposition home or self-care (01) ==
LOC: M INFU 07:53
PROVIDERS: ATTEND Family Medicine
DX: D50.9 Iron deficiency anemia, unspecified (principal); Z88.8 Allergy status to other drugs, medicaments and biological substances
CPT/HCPCS: 36430; P9016

== ENCOUNTER → 2020-08-13 | Outpatient (REF) | payer MEDICARE, OTHER ==
[2020-08-13 16:59] LABS: HEMATOCRIT 33.5 % (36.0-47.0); HEMOGLOBIN 10.1 g/dl (12.0-15.5); MEAN CORPUSCULAR HEMOGLOBIN 30.3 pg (27.0-33.0); MEAN CORPUSCULAR HGB CONC 30.1 g/dl (32.0-36.5); MEAN CORPUSCULAR VOLUME 100.6 fl (80.0-96.0); PLATELET COUNT, AUTOMATED 231 10^3/uL (150-450); RED BLOOD COUNT 3.33 10^6/uL (4.00-5.40); WHITE BLOOD COUNT 5.3 10^3/uL (4.0-10.0)
[2020-08-13 17:38] LABS: CALCIUM LEVEL 9.2 MG/DL (8.8-10.2); CREATININE FOR GFR 1.12 MG/DL (0.55-1.30); GLOMERULAR FILTRATION RATE 50.2 (>39); PERCENT SATURATION 19.6 % (13.2-45.0); POTASSIUM SERUM 4.6 MEQ/L (3.5-5.1)
== END ==
LOC: M SFHCADAM 14:56
PROVIDERS: ATTEND Family Medicine
DX: K92.2 Gastrointestinal hemorrhage, unspecified (principal); D50.8 Other iron deficiency anemias; N18.30 Chronic kidney disease, stage 3 unspecified
CPT/HCPCS: 80048; 82728; 83010; 83550; 85027; G0463

== ENCOUNTER → 2020-09-19 | Outpatient (CLI) | payer MEDICARE, BC, OTHER ==
[~2020-09-19] MED LIST changes: +ACET325C5 PO; +D 50CAP2 PO; +MAGN400C PO; +PRESCAP PO
--- NOTE | 2020-09-19 14:08 | REP ---
INDICATION: CHECK FOR SMALL BOWEL PATENCY/AGILE. COMPARISON: None. TECHNIQUE: Supine and upright views of the abdomen and pelvis. FINDINGS: Bowel gas pattern is relatively nonspecific and without definite evidence for obstruction. No free air below diaphragm to suggest perforation. Mild hepatomegaly cannot be excluded. Skeletal structures demonstrate degenerative changes. Right iliac stenting noted. IMPRESSION: Nonspecific bowel gas pattern. <Electronically signed by Oracio Stephens > 09/19/20 [id number]
== END ==
LOC: M WUC 13:38
PROVIDERS: ATTEND Internal Medicine Gastroenterology
DX: T18.3XXA Foreign body in small intestine, initial encounter (principal); T18.4XXA Foreign body in colon, initial encounter; Y92.89 Other specified places as the place of occurrence of the external cause; Y93.9 Activity, unspecified

== ENCOUNTER → 2020-09-26 | Outpatient (CLI) | payer MEDICARE, BC, OTHER ==
[2020-09-26 13:03] LABS: MEAN CORPUSCULAR HEMOGLOBIN 31.3 pg (27.0-33.0); MEAN CORPUSCULAR HGB CONC 30.8 g/dl (32.0-36.5); MEAN CORPUSCULAR VOLUME 101.6 fl (80.0-96.0); PLATELET COUNT, AUTOMATED 228 10^3/uL (150-450); RED BLOOD COUNT 2.56 10^6/uL (4.00-5.40)
[2020-09-26 13:39] LABS: ALBUMIN 4.1 GM/DL (3.2-5.2); BILIRUBIN,TOTAL 0.4 MG/DL (0.2-1.0); CALCIUM LEVEL 8.8 MG/DL (8.8-10.2); CREATININE FOR GFR 1.01 MG/DL (0.55-1.30); FREE T4 1.34 NG/DL (0.76-1.46); GLOMERULAR FILTRATION RATE 56.6 (>39); PERCENT SATURATION 90.8 % (13.2-45.0); POTASSIUM SERUM 4.4 MEQ/L (3.5-5.1); THYROID STIMULATING HORMONE 0.985 uIU/ML (0.358-3.740); TOTAL PROTEIN 6.5 GM/DL (6.4-8.2)
== END ==
LOC: M WUC 11:42
PROVIDERS: ATTEND Family Medicine
DX: K92.2 Gastrointestinal hemorrhage, unspecified (principal); D50.8 Other iron deficiency anemias; N18.30 Chronic kidney disease, stage 3 unspecified; E03.9 Hypothyroidism, unspecified

== ENCOUNTER → 2020-10-01 | Outpatient (CLI) | payer MEDICARE, BC, OTHER | LOC: M LABSMTC 14:16 | PROVIDERS: ATTEND Anesthesiology | DX: Z01.812 Encounter for preprocedural laboratory examination (principal); Z20.822 Contact with and (suspected) exposure to COVID-19 ==

== ENCOUNTER 2020-10-04 12:28 | Day surgery (SDC) | payer MEDICARE, BC, OTHER ==
[~2020-10-04] VITALS: Ht 162.6 cm; Wt 70.7 kg
[~2020-10-04 12:28] MED LIST changes: +NS 1,000 ML IV ONE
--- OUTSIDE RECORDS SUMMARY | 2020-10-04 12:32 | CCD ---
Author Author [facility] Organization [facility] Address Unknown Phone Unavailable Care Team Providers Care Water Meter Reader Name Role Phone JazmineKarlo Unavailable PROBLEMS Type Condition ICD9-CM Code VTL79-OS Code Onset Dates Condition S tatus SNOMED Code Notes Problem PAD (peripheral artery disease) I73.9 Active 604919620 Problem History of angioplasty of peripheral vessel Z98.62 Active 944455811 Problem Spinal stenosis, lumbosacral region M48.07 Acti ve 50296474 Problem Chronic kidney disease, stage 3 (moderate) N18.3 Active 295002096 Problem Gastro-esophageal reflux disease without esophagitis K21.9 Active 604599645 Problem Nonrheumatic aortic valve disorder, 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 Active 0897564 on echo 02/01; due for repeat 02/03 Problem 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 Active 768540815 Problem Allergic rhinitis, unspecified J30.9 Active 6 6280892 Problem Disorder of carbohydrate metabolism, 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 Active 38972877 Problem Nontoxic single thyroid nodule E04.1 Active 1 21271075 Problem Hypothyroidism, unspecified E03.9 Active 4093 0008 Problem Other iron deficiency anemia D50.8 Active 875 06509 Problem Mixed hyperlipidemia E78.2 Active 105176926 Problem Slow transit constipation K59.01 Active 950383 07 Problem Restless legs syndrome G25.81 Active 25075238 Problem Atherosclerosis with claudication of extremity I70 .219 Active 470074858 Problem Paroxysmal atrial fibrillation I48.0 Active 2 22779492 Problem Hypertensive heart disease without heart failure I 11.9 Active 31068489 Problem Foot ulcer, left, limited to breakdown of skin L97 .521 Active 51122436 Problem Medicare annual wellness visit, subsequent Z00.00 Active 167475577 ALLERGIES Allergen (clinical drug ingredient) Drug/Non Drug Allergy do cumented on EMR Reaction Allergy Type Onset Date Status spironolactone Aldactone([facility] Code:[address]-47) cramps in legs /nausea Drug Allergy Active Maggi Hives Drug Allergy Active ENCOUNTERS from 1942 to 2020-08-20 Encounter Location Date Provider Diagnosis [facility] [address] [place] [address] Jul, Mitesh Lucero Medicare annual wellness visit, subsequent Z00.00 ; Gastrointestinal hemorrhage, unspecified gastrointestinal hemorrhage type K92.2 ; Other iron deficiency anemia D50.8 ; PAD (peripheral artery disease) I73.9 ; Chronic kidney disease, stage 3 (moderate) N18.3 ; Paroxysmal atrial fibrillation I48.0 ; History of angioplasty of peripheral vessel Z98.62 ; Hypertensive heart disease without heart failure I11.9 and Hypothyroidism, unspecified E03.9 IMMUNIZATIONS Vaccine Route Administration Date Status Influenza (High Dose 65 & up) IM Intramuscular Jul 09, 2017 A dministered Influenza (18 yrs & older) Flublok IM Intramuscular Jul 13, 2018 Administered Influenza (18 yrs & older) Flublok IM Intramuscular Jul 27, 2019 Administered Influenza (Pharmacy Given) Unknown Jun 25, 2020 Admin istered Influenza (High Dose 65 & up) Unknown Jun 25, 2015 Ad ministered Influenza (High Dose 65 & up) IM Intramuscular Jul 23, 2016 A dministered Pneumococcal Adult 0.5mL (Pneumovax 23) IM Intramuscular Aug 21, 2016 Administered Influenza (6mo & up) Fluzone IM Intramuscular Jul 08, 2010 Ad ministered Pneumococcal 0.5mL (Prevnar 13) IM Intramuscular Jul 27, 2014 Administered Zoster 50mcg/0.5mL (Shingrix) Unknown May 20, 2018 Ad ministered Zoster 50mcg/0.5mL (Shingrix) Unknown January 30, 2018 Ad ministered Zoster 0.65mL (Zostavax) Unknown Sep 20, 2012 Adminis tered Influenza (6mo & up) Fluzone IM Intramuscular Jun 22, 2014 Ad ministered Influenza (6mo & up) Fluzone IM Intramuscular Jun 20, 2013 Ad ministered Influenza (6mo & up) Fluzone IM Intramuscular Jun 28, 2012 Ad ministered Influenza (6mo & up) Fluzone IM Intramuscular Jul 07, 2011 Ad ministered SOCIAL HISTORY Tobacco Use: Social History Observation Description Date Details (start date - stop date) Former Smoker Sex Assigned At : Social History Observation Description Sex Assigned At Unknown Education: Question Answer Notes Level of Education: College some Language: Question Answer Notes Languages spoken: Greek Lutheran: Question Answer Notes Lutheran 21 [employer] Alcohol Screening: Question Answer Notes Did you have a drink containing alcohol in the past year? Ye s Points 4 Interpretation Positive How often did you have six or more drinks on one occas ion in the past year? Never (0 points) How many drinks did you have on a typica l day when you were drinking in the past year? 1 or 2 (0 points) How often did you have a drink containing alcohol in t he past year? Four or more times a week (4 points) BMI Care Goal Follow-Up Question Answer Notes Above Normal BMI Follow-Up Giving encouragement to exercise Tobacco Use: Question Answer Notes Are you a: former smoker How long has it been since you last smoked? > 10 years REASON FOR REFERRAL No Information VITAL SIGNS Weight 154 lbs Jul, Height 64 in Jul, BMI 26.43 kg/m2 Jul, Heart Rate 80 /min Jul, Respiratory Rate 18 /min Jul, Temperature 97.5 degrees Fahrenheit Jul, Oximetry 97 Jul, Blood pressure systolic 132 mm Hg Jul, Blood pressure diastolic 70 mm Hg Jul, MEDICATIONS Medication SIG (Take, Route, Frequency, Duration) Notes Start Da te End Date Status Magnesium 200 MG 2 tablets with a meal Orally Once a day Active AmLODIPine Besylate 5 MG 1 tablet Orally Once a day for 30 day(s) Active ProAir HFA 108 (90 Base) MCG/ACT 2 puff2 as needed Inh alation four times daily as needed for 30 Days January, Not-Taking Lisinopril 20 MG 1 tablet Orally Once a day Active Zyrtec Allergy 10 mg 1 tablet p.o. Once a day Active ICaps AREDS Formula OTC 1 tablets p.o. twice a day Active Baclofen 10 mg two tablets p.o. daily HS per pt Active Dofetilide 250 MCG 2 capsules Orally Twice a day Active Protonix 40MG DR 1 tablet Orally bid Not-Taking Eliquis 5 MG 8 oz Orally bid Not-Jim ing Zocor 40MG 1 tablet every evening Orally Once a day for 90 Active Ranitidine HCl 300MG 1 tablet orally Daily at bedtime for 90 Not-Taking Benzonatate 100 MG 1 capsule as needed Orally t hree times daily as needed for 10 day(s) Nov, Not-Taking Vitamin D3 1,000 units orally Daily Active Aspirin 81 MG 1 tablet Orally Once a day for 30 day(s) Active Amoxicillin 875 MG 1 tablet Orally every 12 hrs for 10 day(s) Nov, Not-Taking Aspir-81 81 MG 1 tablet Orally Once a day Not-Taking Sucralfate 1 GM/10ML 10 ml on an empty stomach Orally Twice a day for 30 day(s) Not-Taking Levothyroxine Sodium 100 MCG 1 tablet every morning on an empty stomach Orally once a day for 90 Active Iron (Ferrous Sulfate) 325 MG 1 tablet Orally Daily Active Furosemide 20MG 1 tablet Orally Once a day for 90 Active Calcium 600 + D 600-400 MG-UNIT 1 tablet Orally Twice a day Not-Taking PROCEDURES No Information RESULTS Component Value Reference Range CBC - Complete Blood Count Reviewed date:08/13/2020 17:33:40 Interpretation: Performing Lab:[facility], [facility] [address] [address] , ,[place] [address] WHITE BLOOD COUNT 5.3 4.0-10.0 RED BLOOD COUNT 3.33 4.00-5.40 HEMOGLOBIN 10.1 12.0-15.5 HEMATOCRIT 33.5 36.0-47.0 MEAN CORPUSCULAR VOLUME 100.6 80.0-96.0 MEAN CORPUSCULAR HEMOGLOBIN 30.3 27.0-33.0 MEAN CORPUSCULAR HGB CONC 30.1 32.0-36.5 RED CELL DISTRIBUTION WIDTH 17.2 11.5-14.5 PLATELET COUNT, AUTOMATED 231 150-450 REASON FOR VISIT 6 month 090-4102 MEDICAL (GENERAL) HISTORY Type Description Date Medical History hypertension Medical History hypothyroidism Medical History GERD Medical History BCC left forehead 08/23 Medical History SCC right clavicular Medical History Ex-Smoker (08/22) Medical History 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 Juan Manuel bolanos) Medical History DEXA 2008 normal; DEXA 02/06: FRAX risk l ow, no sig change 2014 Medical History Hyperlipidemia Medical History IFG/Prediabetes Medical History GERD Medical History Thyroiditis 1991 Medical History Adenomatous colon polyp 1998, normal col onoscopy 2008 Medical History Allergies Medical History Right Wilbert-thyroidectomy 02/03/2011 Medical History atrophic vaginitis/dyspareunia Medical History CKD 3--GFR 45, Cr 1.2 Medical History Normal DEXA 11/29--T-score WNL (-0.3) Medical History Pulsatile tinnitus--neg w/u neuro, ENT 2 012-13 Medical History PAD-- s/p left SFA balloon a ngioplasty [facility], complicated by retroperitoneal hematoma, needed IVF/admission; repeat 3D MODELER/stent left SFA 03/05, left SFA angioplasty/stent 09/04; 01/06: 80% in-stent stenosis left SFA stent Medical History parox at [facility]-- 03/05, convert ed in ER; follows [facility], long-term anticoagulation advised; admitted [facility] for at [facility] by [facility] 10/07 Medical History chronic GI blood loss, admit [facility] 04/08 with GHgb 4.x, neg EGD/colo 11/09, 01/07 Surgical History tubal ligation Surgical History bunions and fixed hammertoe Surgical History Colonoscopy - normal 03/2009, 2013, 2019 Surgical History FNA rt throid nodule (nondiagnostic X2) 2010 Surgical History R partial thyroidectomy 02/03/2011 Surgical History EGD--mild chronic gastritis 09/30 Surgical History cancer removed from chest area and legs, 2 SCC and 2 BCC 11/23/13 Surgical History cataract right eye 02/2015 Surgical History cataract left eye 03/2015 Surgical History left SFA balloon angioplasty [facility], complicated by retroperitoneal hematoma, needed IVF/admission 09/03 Surgical History 3D MODELER/stent left SFA [facility]uan [facility]; stent , 09/04, 06/08 03/05; 09/04; 06/08 Surgical History left stent 09/03/16 Surgical History EGD/colonoscopy--neg EGD biopsies; no co dominga bx done 11/09 Surgical History EGD--ectopic gastric mucosa visualized, no biopsies 04/08 Hospitalization History cardiac 10/07 Hospitalization History GI bleed/anemia 11/09 Goals Section No Information Health Concerns No Information MEDICAL EQUIPMENT No Information MENTAL STATUS No Information FUNCTIONAL STATUS No Information ASSESSMENTS Encounter Date Diagnosis Assessment Notes Treatment Notes Treatm ent Clinical Notes Jul, Medicare annual wellness visit, subsequent (ICD- 10 - Z00.00) age appropriate anticipatory guidance given, per USPSTF recommendations; immunizations up to date. discussed plans for implementing improvement in identified areas Jul, Gastrointestinal hemorrhage, unspecified gastrointestinal hemorrhage type (ICD-10 - K92.2) refer back to GI for ? capsule endo Jul, Other iron deficiency anemia (ICD-10 - D50.8) Jul, PAD (peripheral artery disease) (ICD-10 - I73.9) Jul, Chronic kidney disease, stage 3 (moderate) (ICD- 10 - N18.3) Jul, Paroxysmal atrial fibrillation (ICD-10 - I48.0) discussed inc mortality associatewd with stopping anticoagulation in face of non-catastrophic GI bleed Jul, History of angioplasty of peripheral vessel (ICD -10 - Z98.62) Jul, Hypertensive heart disease without heart failure (ICD-10 - I11.9) Jul, Hypothyroidism, unspecified (ICD-10 - E03.9) PLAN OF TREATMENT Treatment Notes Assessment Notes Clinical Notes Medicare annual wellness visit, subsequent age appropriate anticipatory guidance given, per USPSTF recommendations; immunizations up to date. discussed plans for implementing improvement in identified areas Gastrointestinal hemorrhage, unspecified gastrointestinal he morrhage type refer back to GI for ? capsule endo Paroxysmal atrial fibrillation discussed inc mortality associatewd with stopping anticoagulation in face of non-catastrophic GI bleed Future Test Test Name Order Date FREE T4 & TSH PANEL 20200924 CBC - Complete Blood Count 20200924 FERRITIN 20200924 Reticulocyte Count Sysmex 20200924 TOTAL IRON BINDING CAPACIT 20200924 Comprehensive Metabolic Profile (CMP) 20200924 Next Appt Details 6 Weeks, 3 Months Reason: Provider Name:Karlo Lucero, 2020-09 02:15:00 PM, [address], [place], [address], Provider Name:Karlo Lucero, 2020-10 11:00:00 AM, [address], [place], [address], Provider Name:Chitra Chris, 2021-01-29 10:30:00 AM, [address] [place], [address], Insurance Providers Payer Name Payer Address Payer Phone Insured Name Patient Relati onship to Insured Coverage Start Date Coverage End Date MEDICARE Part A and B [address] [facility] [id number] JOHN SEXTON [facility] [address] [facility] [id number] [phone] JOHN SEXTON self
--- OUTSIDE RECORDS SUMMARY | 2020-10-04 12:32 | CCD ---
Author Author [facility] Organization [facility] Address Unknown Phone Unavailable Care Team Providers Care [employer] Name Role Phone JazmineKarlo Unavailable PROBLEMS Type Condition ICD9-CM Code [id number] Code Onset Dates Condition S tatus SNOMED Code Notes Problem PAD (peripheral artery disease) I73.9 Active 348791774 Problem History of angioplasty of peripheral vessel Z98.62 Active 020820662 Problem Spinal stenosis, lumbosacral region M48.07 Acti ve 43024363 Problem Chronic kidney disease, stage 3 (moderate) N18.3 Active 897776963 Problem Gastro-esophageal reflux disease without esophagitis K21.9 Active 039925608 Problem Nonrheumatic aortic valve disorder, 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 Active 9109879 on echo 02/01; due for repeat 02/03 Problem 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 Active 937250765 Problem Allergic rhinitis, unspecified J30.9 Active 6 1945896 Problem Disorder of carbohydrate metabolism, 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 Active 98726453 Problem Nontoxic single thyroid nodule E04.1 Active 1 35454008 Problem Hypothyroidism, unspecified E03.9 Active 4093 0008 Problem Other iron deficiency anemia D50.8 Active 875 66484 Problem Mixed hyperlipidemia E78.2 Active 941386581 Problem Slow transit constipation K59.01 Active 974789 07 Problem Restless legs syndrome G25.81 Active 34250624 Problem Atherosclerosis with claudication of extremity I70 .219 Active 927198897 Problem Paroxysmal atrial fibrillation I48.0 Active 2 48271939 Problem Hypertensive heart disease without heart failure I 11.9 Active 21916116 Problem Foot ulcer, left, limited to breakdown of skin L97 .521 Active 97880033 Problem Medicare annual wellness visit, subsequent Z00.00 Active 855162742 ALLERGIES Allergen (clinical drug ingredient) Drug/Non Drug Allergy do cumented on EMR Reaction Allergy Type Onset Date Status spironolactone Aldactone([facility] Code:[address]-94) cramps in legs /nausea Drug Allergy Active Zyban Hives Drug Allergy Active ENCOUNTERS from 1942 to 2020-08-08 Encounter Location Date Provider Diagnosis [facility] [address] [place] [address] Jul, Mitesh abbey [place] Anemia, unspecified type D64.9 IMMUNIZATIONS Vaccine Route Administration Date Status Influenza (Pharmacy Given) Unknown Jun 25, 2020 Admin istered Influenza (High Dose 65 & up) IM Intramuscular Jul 09, 2017 A dministered Influenza (18 yrs & older) Flublok IM Intramuscular Jul 13, 2018 Administered Influenza (18 yrs & older) Flublok IM Intramuscular Jul 27, 2019 Administered Influenza (High Dose 65 & up) IM Intramuscular Jul 23, 2016 A dministered Zoster 50mcg/0.5mL (Shingrix) Unknown January 30, 2018 Ad ministered Zoster 50mcg/0.5mL (Shingrix) Unknown May 20, 2018 Ad ministered Influenza (6mo & up) Fluzone IM Intramuscular Jul 08, 2010 Ad ministered Influenza (High Dose 65 & up) Unknown Jun 25, 2015 Ad ministered Zoster 0.65mL (Zostavax) Unknown Sep 20, 2012 Adminis tered Pneumococcal Adult 0.5mL (Pneumovax 23) IM Intramuscular Aug 21, 2016 Administered Pneumococcal 0.5mL (Prevnar 13) IM Intramuscular Jul 27, 2014 Administered Influenza (6mo & up) Fluzone IM [...] some Language: Question Answer Notes Languages spoken: Malay Samaritan: Question Answer Notes Samaritan 21 [employer] Alcohol Screening: Question Answer Notes Did you [...] REASON FOR REFERRAL No Information VITAL SIGNS No information MEDICATIONS Medication SIG (Take, Route, Frequency, Duration) Notes Start Da te End Date Status Ranitidine HCl 300MG 1 tablet orally Daily at bedtime for 90 Not-Taking Calcium 600 + D 600-400 MG-UNIT 1 tablet Orally Twice a day Not-Taking Benzonatate 100 MG 1 capsule as needed Orally t hree times daily as needed for 10 day(s) Nov, Not-Taking Zyrtec Allergy 10 mg 1 tablet p.o. Once a day Active ICaps AREDS Formula OTC 1 tablets p.o. twice a day Active Protonix 40MG DR 1 tablet Orally bid Not-Taking Furosemide 20MG 1 tablet Orally Once a day for 90 Active Amoxicillin 875 MG 1 tablet Orally every 12 hrs for 10 day(s) Nov, Not-Taking Eliquis 5 MG 8 oz Orally bid Not-Jim ing AmLODIPine Besylate 5 MG 1 tablet Orally Once a day for 30 day(s) Active Zocor 40MG 1 tablet every evening Orally Once a day for 90 Active ProAir HFA 108 (90 Base) MCG/ACT 2 puff2 as needed Inh alation four times daily as needed for 30 Days January, Not-Taking Magnesium 200 MG 2 tablets with a meal Orally Once a day Active Vitamin D3 1,000 units orally Daily Active Dofetilide 250 MCG 2 capsules Orally Twice a day Active Sucralfate 1 GM/10ML 10 ml on an empty stomach Orally Twice a day for 30 day(s) Not-Taking Aspir-81 81 MG 1 tablet Orally Once a day Not-Taking Iron (Ferrous Sulfate) 325 MG 1 tablet Orally Daily Active Baclofen 10 mg two tablets p.o. daily HS per pt Active Aspirin 81 MG 1 tablet Orally Once a day for 30 day(s) Active Levothyroxine Sodium 100 MCG 1 tablet every morning on an empty stomach Orally once a day for 90 Active Lisinopril 20 MG 1 tablet Orally Once a day Active PROCEDURES No Information RESULTS No Results REASON FOR VISIT No Information MEDICAL (GENERAL) HISTORY Type Description Date Medical [...] PAD-- s/p left SFA balloon a ngioplasty [facility], complicated by retroperitoneal hematoma, needed IVF/admission; repeat RN MENTAL HEALTH/stent left SFA 03/05, left SFA angioplasty/stent 09/04; 01/06: 80% in-stent stenosis left SFA stent Medical History parox at [facility]-- 03/05, convert ed in ER; follows [facility], long-term anticoagulation advised; admitted [facility] for at [facility] by [facility] 10/07 Medical History chronic GI blood loss, admit [facility] 04/08 with GHgb 4.x, neg EGD/colo [...] retroperitoneal hematoma, needed IVF/admission 09/03 Surgical History RN MENTAL HEALTH/stent left SFA [facility]; stent , 09/04, 06/08 03/05; 09/04; 06/08 [...] Treatment Notes Treatm ent Clinical Notes Jul, Anemia, unspecified type (ICD-10 - D64.9) PLAN OF TREATMENT Medication Medication Name Sig Start Date Stop Date Levothyroxine Sodium 100 MCG 1 tablet every morning on an empty stomach Orally once a day for 90 Next Appt Details Provider Name:Karlo Lucero, 2020-07 02:00:00 PM, [address] [place] [address], [address], Provider Name:Chitra Chris, 2021-01-29 10:30:00 AM, [address] [place], [address], Insurance Providers Payer Name Payer Address Payer Phone Insured Name Patient Relati onship to Insured Coverage Start Date Coverage End Date MEDICARE Part A and B [address] [facility] [id number] JOHN SEXTON [facility] [address] [facility] [id number] JOHN SEXTON
--- OUTSIDE RECORDS SUMMARY | 2020-10-04 12:32 | CCD | Continuity of Care Document ---
Author Author Rehan HARDIN MD Organization Unknown Address [address] [place] [address] Phone [phone] Care Team Providers Care Precision [employer] Insights Name Role Phone Lui Hardin MD AUTM [phone] [facility] AUTM [phone] Karlo Lucero M.D. AUTM [phone] Problems Active Problems Provider Date Awilda thyroiditis Juan Manuel Singh MD Onset: 11/04/2012 Chronic rhinitis Juan Manuel Singh MD Onset: 11/04/2012 Globus Sensation Juan Manuel Singh MD Onset: 11/04/2012 Non-toxic uninodular goiter Juan Manuel Singh MD Onset: 11/04 Chronic laryngitis Juan Manuel Singh MD Onset: 11/04/2012 Difficulty speaking Juan Manuel Singh MD Onset: 11/04/2012 Benign neoplasm of thyroid gland Juan Manuel Singh MD Onset: 11/04/2012 Epigastric pain Lui Hardin MD Onset: 11/04/2012 Heartburn Lui Hardin MD Onset: 11/04/2012 History Personal Digestive System Diseases Other Lui cheng MD Onset: 11/04/2012 Gastroduodenitis Lui Hardin MD Onset: 11/04/2012 Gastroparesis syndrome Lui Hardin MD Onset: 11/04/2012 Gastroesophageal reflux disease Lui Hardin MD Onset: 0 11/04/2012 Subjective tinnitus Juan Manuel Singh MD Onset: 01/06/2013 Sensorineural hearing loss, bilateral Juan Manuel Singh MD On set: 02/20/2014 Sore throat symptom Juan Manuel Singh MD Onset: 04/09/2014 History of polyp of colon Bob Lawson M.D. Onset: 2013 Essential hypertension Bob Lawson M.D. Onset: 7 Social History Type Date Description Comments Sex Unknown Tobacco Use Start: Unknown End: Unknown Quit ETOH Use Occasionally consumes alcohol ETOH Use 3-4 Weekly Tobacco Use Start: Unknown End: Unknown Patient is a former smoker QUIT 2003 Recreational Drug Use Denies Drug Use Allergies, Adverse Reactions, Alerts Active Allergies Reaction Severity Comments Date Zyban HIVES 08/27/2009 Aldactone Nausea and Vomiting, NERVOUS 06/15/2017 Medications Active Medications SIG Qnty Indications Ordering Provide r Date Miralax 17GM/Scoop Powder as directed per prep for capsule endoscopy 238gm Lui Hardin MD 08/[address] Take 1 Tablet Daily 90tabs K21.9 Juan Manuel Singh MD 02/20/2014 Lisinopril 20mg Tablets 1 by mouth every day Unknown Baclofen 10mg Tablets twice a day Unknown Zocor (Simvastatin) 40mg Tablets daily Unknown Levothyroxine Sodium 100mcg Soluti on Rec 1 po qd 30Pills Unknown Zyrtec Allergy 10mg Tablets 1 po qd 30tabs Unknown Eliquis 5mg Tablets 1 tab by mouth twice a day Unknown Magnesium Oxide 400mg Tablets take 1 tab by mouth 2 x daily. Unknown Dofetilide 125mcg Capsules 0.25 a 2 daily Unknown Furosemide 20mg Tablets daily Unknown Amlodipine Besylate 5mg Tablets daily Unknown Preservision Areds Capsules 2 by mouth daily Unknown Vitamin D3 125mcg (5000 Ut) Capsul es 1 a day Unknown Iron (Ferrous Sulfate) 142(45Fe) mg Tablets ER 1 tab by mouth qod Unknown 0 Aspirin 81 Low Dose 81mg Chewtabs 1 by mouth Unknown Immunizations Description No Information Available Vital Signs Date Vital Result Comment 09/04/2020 1:22pm BP Systolic 156 mmHg BP Diastolic 70 mmHg Height 64 inches 5'4" Weight 153.00 lb BMI (Body Mass Index) 26.3 kg/m2 [place] Body Weight 120 lb Weight 69.401 kg BSA (Body Surface Area) 1.75 m2 04/15/2020 3:26pm BP Systolic 132 mmHg BP Diastolic 76 mmHg Height 64 inches 5'4" Weight 155.38 lb BMI (Body Mass Index) 26.7 kg/m2 [place] Body Weight 120 lb Weight 70.478 kg BSA (Body Surface Area) 1.76 m2 Results Description No Information Available Procedures Description No Information Available Medical Devices Description No Information Available Encounters Type Date Location Provider Dx Diagnosis Office Visit 09/04/2020 1:30p [facility] Lui Hardin MD D64.9 Anemia, unspecified Office Visit 04/15/2020 10:00a [facility] Bob revelse M.D. K29.70 Gastritis, unspecified, without bleeding D50.9 Iron deficiency anemia, unsp ecified Office Visit 04/08/2020 4:15p [facility] Sarah paulino MD I70.213 Athscl [place] arteries of extrm w intrmt koffi, bi legs Z95.828 Presence of other vascular i mplants and grafts Assessments Date Code Description Provider 09/04/2020 D64.9 Anemia, unspecified Lui Hardin MD 04/15/2020 K29.70 Gastritis, unspecified, without bleeding Bob Lawson M.D. 04/15/2020 D50.9 Iron deficiency anemia, unspecif ied Bob Lawson M.D. 04/08/2020 I70.213 Atherosclerosis of n ative arteries of extremities with intermittent claudication, bilateral legs Sarah Garcia MD 04/08/2020 Z95.828 Presence of other vascular impla nts and grafts Sarah Garcia MD Plan of Treatment No Information Available Functional Status Description No Information Available Mental Status Description No Information Available Referrals Refer to Dr Reason for Referral Status Appt Date Sarah Rosen M.D. Closed 09/10/20 20 Gastroenterology & Hepatology [facility] [address], [address] [place] [id number] [phone]
--- OUTSIDE RECORDS SUMMARY | 2020-10-04 12:32 | CCD | Continuity of Care Document ---
Author Author Rehan HARDIN MD Organization Unknown Address [address] [place] [address] Phone [phone] Care Team Providers Care Shoe Trimmer Name Role Phone Lui Hardin MD AUTM [phone] [facility] AUTM [phone] Karlo Lucero M.D. 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 Chronic rhinitis Juan Manuel [...] lb BMI (Body Mass Index) 26.3 kg/m2 [place] Body Weight 120 lb Weight 69.401 kg BSA (Body Surface Area) 1.75 m2 04/15/2020 3:26pm BP Systolic 132 mmHg BP Diastolic 76 mmHg Height 64 inches 5'4" Weight 155.38 lb BMI (Body Mass Index) 26.7 kg/m2 [place] Body Weight 120 lb Weight 70.478 kg BSA (Body Surface Area) 1.76 m2 Results Description No Information Available Procedures Description No Information Available Medical Devices Description No Information Available Encounters Type Date Location Provider Dx Diagnosis Office Visit 09/04/2020 1:30p [facility] ENT[facility]GI [facility] Lui Hardin MD D64.9 Anemia, unspecified Office Visit 04/15/2020 10:00a [facility] Surgery Practice Bob reveles M.D. K29.70 Gastritis, unspecified, without bleeding D50.9 Iron deficiency anemia, unsp ecified Office Visit 04/08/2020 4:15p [facility] Surgery Practice Sarah paulino MD I70.213 Athscl [place] arteries of extrm w intrmt koffi, bi [...] grafts Sarah Garcia MD Plan of Treatment Future Appointment(s):* 09/25/2020 8:00 am - Lui Hardin MD at [facility] ENT[facility]GI Practice * 09/18/2020 8:00 am - Lui Hardin MD at [facility] ENT/GI Practice 09/04/2020 - Lui Hardin MD* D64.9 Anemia, unspecified * * New Orders:* PillCam/Capsule Endoscopy-small bowel, Ordered: 09/04/20 * Agile/Pillcam, Ordered: 09/04/20 * Comments:* pt with recurrent chronic anemia. EGD and Colonoscopy have been nedgative. her iron studies are equivocal. there is no definite history of acute bleeding(BRBPR/Melena). * Recommendations:* will do capsule endoscopy Pt to see hematology Functional Status Description No Information Available Mental Status Description No Information Available Referrals Refer to Reason for Referral Status Appt Date Sarah Rosen M.D. Closed 09/10/20 G[facility]enterology [facility] Hepatology [address], [place] [address] [phone]
--- OUTSIDE RECORDS SUMMARY | 2020-10-04 12:32 | CCD | Continuity of Care Document ---
Author Author Rehan RENDON P.A.-C. Organization Unknown Address [address] [place] [address] Phone [phone] Problems Description No Information Available Social History Type Date Description Comments Sex Unknown Allergies, Adverse Reactions, Alerts Active Allergies Reaction Severity Comments Date Zyban hives 01/23/2014 Vicodin GI upset 01/23/2014 Valium syncope 01/23/2014 Medications Active Medications SIG Qnty Indications Ordering Provide r Date Ativan 1mg Tablets 1 by mouth 1 hour prior to mri, may repeat once 2tabs Hari Lester M.D. 2016 Baclofen 10mg Tablets 1 po bi d 180tabs Hari Lester M.D. 03/31/2011 Immunizations Description No Information Available Vital Signs Date Vital Result Comment 05/14/2020 6:39am BP Systolic 140 mmHg BP Diastolic 70 mmHg Heart Rate 64 /min Respiratory Rate 16 /min 08/03/2019 7:13am BP Systolic 140 mmHg BP Diastolic 70 mmHg Heart Rate 60 /min Respiratory Rate 16 /min Results Description No Information Available Procedures Description No Information Available Medical Devices Description No Information Available Encounters Type Date Location Provider Dx Diagnosis Office Visit 05/14/2020 11:30a Main office - [place] Haydee duffy P.A.-C. I63.89 Other cerebral infarction M54.2 Cervicalgia M47.892 Other spondylosis, cervical region M54.5 Low back pain Assessments Date Code Description Provider 08/14/2020 I63.89 Other cerebral infarction Haydee Rendon P.A.-C. 08/14/2020 M54.2 Cervicalgia Haydee Rendon P.A.-C. 08/14/2020 M54.5 Low back pain Haydee Rendon P.A.-C. 05/14/2020 I63.89 Other cerebral infarction Haydee Rendon P.A.-C. 05/14/2020 M54.2 Cervicalgia Haydee Rendon P.A.-C. 05/14/2020 M47.892 Other spondylosis, cervical bere on Haydee Rendon P.A.-C. 05/14/2020 M54.5 Low back pain Haydee Rendon P.A.-C. Plan of Treatment No Information Available Functional Status Description No Information Available Mental Status Description No Information Available Referrals Description No Information Available
--- OUTSIDE RECORDS SUMMARY | 2020-10-04 12:32 | CCD | Continuity of Care Document ---
Author Author Rehan HARDIN MD Organization Unknown Address [address] [place] [address] Phone [phone] Care Team Providers Care Car Head Liner Installer Name Role Phone Lui Hardin MD AUTM [phone] [facility] AUTM [phone] Karlo Lucero M.D. AUTM [phone] Problems Active Problems Provider Date Awilda thyroiditis [...] lb BMI (Body Mass Index) 26.3 kg/m2 [place] Body Weight 120 lb Weight 69.401 kg BSA (Body Surface Area) 1.75 m2 04/15/2020 3:26pm BP Systolic 132 mmHg BP Diastolic 76 mmHg Height 64 inches 5'4" Weight 155.38 lb BMI (Body Mass Index) 26.7 kg/m2 [place] Body Weight 120 lb Weight 70.478 kg BSA (Body Surface Area) 1.76 m2 Results Description No Information Available Procedures Description No Information Available Medical Devices Description No Information Available Encounters Type Date Location Provider Dx Diagnosis Office Visit 09/04/2020 1:30p [facility] ENT/GI Practice Lui Hardin MD D64.9 Anemia, unspecified Office Visit 04/15/2020 10:00a [facility] Surgery [facility] Bob reveles M.D. K29.70 Gastritis, unspecified, without bleeding D50.9 Iron deficiency anemia, unsp ecified Office Visit 04/08/2020 4:15p [facility] Sarah paulino MD I70.213 Athscl [place] arteries of extrm w intrmt koffi, bi [...] 8:00 am - Lui Hardin MD at [facility] ENT/GI [facility] Functional Status Description No Information Available Mental Status Description No Information Available Referrals Refer to Reason for Referral Status Appt Date Sarah Rosen M.D. Closed 09/10/20 Gastroenterology & Hepatology [address], [place] [address] [phone]
--- OUTSIDE RECORDS SUMMARY | 2020-10-04 12:32 | CCD | Continuity of Care Document ---
Author Author Rehan RENDON P.A.-C. Organization Unknown Address [address] [place] [address] Phone [phone] Problems Description No Information Available Social History [...] Date Location Provider Dx Diagnosis Office Visit 08/14/2020 11:00a Main office - [place] Haydee duffy P.A.-C. I63.89 Other cerebral infarction M54.2 Cervicalgia M54.5 Low back pain Office Visit 05/14/2020 11:30a Main office - [place] Daniel Cole.A.-C. I63.89 Other cerebral infarction M54.2 Cervicalgia M47.892 Other spondylosis, cervical region M54.5 Low back pain Assessments Date Code Description Provider 08/14/2020 I63.89 Other cerebral infarction Haydee Rendon P.A.-C. 08/14/2020 M54.2 Cervicalgia Haydee Rendon P.A.-C. 08/14/2020 M54.5 Low back pain Aidan PerezCFinn 05/14/2020 I63.89 Other cerebral infarction Haydee Rendon P.A.-C. 05/14/2020 M54.2 Cervicalgia Haydee Rendon P.A.-C. 05/14/2020 M47.892 Other spondylosis, cervical bere on Haydee Rendon P.A.-C. 05/14/2020 M54.5 Low back pain Haydee Rendon P.A.-C. Plan of Treatment Future Appointment(s):* 11/14/2020 9:15 am - Haydee Rendon P.A.-C. at Main office [facility] 08/14/2020 - Haydee Rendon P.A.-C.* I63.89 Other cerebral infarction* Comments:* Not recurrent. She wants to defer MRA of the neck. She continues Zocor, Eliquis and aspirin. * M54.2 Cervicalgia* Comments:* Controlled. * M54.5 Low back pain* Comments:* Controlled. * Follow up:* 3 months Functional Status Description No Information Available Mental Status Description No Information Available Referrals Description No Information Available
--- OUTSIDE RECORDS SUMMARY | 2020-10-04 12:32 | CCD ---
Author Author [facility] Organization [facility] Address Unknown Phone Unavailable Care Team Providers Care Communication Clerk Name Role Phone JazmineKarlo Unavailable PROBLEMS Type Condition ICD9-CM Code [id number] Code Onset Dates Condition S tatus SNOMED Code Notes Problem PAD (peripheral artery disease) I73.9 Active 215243638 Problem History of angioplasty of peripheral vessel Z98.62 Active 873565158 Problem Spinal stenosis, lumbosacral region M48.07 Acti ve 17141217 Problem Chronic kidney disease, stage 3 (moderate) N18.3 Active 855890653 Problem Gastro-esophageal reflux disease without esophagitis K21.9 Active 716136733 Problem Nonrheumatic aortic valve disorder, 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 Active 4212363 on echo 02/01; due for repeat 02/03 Problem 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 Active 535510406 Problem Allergic rhinitis, unspecified J30.9 Active 6 6414626 Problem Disorder of carbohydrate metabolism, 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 Active 08649842 Problem Nontoxic single thyroid nodule E04.1 Active 1 76304864 Problem Hypothyroidism, unspecified E03.9 Active 4093 0008 Problem Other iron deficiency anemia D50.8 Active 875 12345 Problem Mixed hyperlipidemia E78.2 Active 069067278 Problem Slow transit constipation K59.01 Active 719623 07 Problem Restless legs syndrome G25.81 Active 03599434 Problem Atherosclerosis with claudication of extremity I70 .219 Active 582109946 Problem Paroxysmal atrial fibrillation I48.0 Active 2 45956386 Problem Hypertensive heart disease without heart failure I 11.9 Active 43755007 Problem Foot ulcer, left, limited to breakdown of skin L97 .521 Active 31288334 Problem Medicare annual wellness visit, subsequent Z00.00 Active 626928431 ALLERGIES Allergen (clinical drug ingredient) Drug/Non Drug Allergy do cumented on EMR Reaction Allergy Type Onset Date Status spironolactone Aldactone([facility][NOTE 2] Code:[address]-39) cramps in legs /nausea Drug Allergy Active Zybosvaldo Hives Drug Allergy Active ENCOUNTERS from 1942 to 2020-08-27 Encounter Location Date Provider Diagnosis [facility] [address] [place] [address] Aug, Mitesh Lucero IMMUNIZATIONS Vaccine Route Administration Date Status Zoster 50mcg/0.5mL (Shingrix) Unknown May 20, 2018 Ad ministered Influenza (18 yrs & older) Flublok IM Intramuscular Jul 13, 2018 Administered Influenza (18 yrs & older) Flublok IM Intramuscular Jul 27, 2019 Administered Influenza (Pharmacy Given) Unknown Jun 25, 2020 Admin istered Influenza (High Dose 65 & up) IM Intramuscular Jul 23, 2016 A dministered Influenza (High Dose 65 & up) IM Intramuscular Jul 09, 2017 A dministered Zoster 50mcg/0.5mL (Shingrix) Unknown January 30, 2018 Ad ministered Influenza (6mo & up) [...] some Language: Question Answer Notes Languages spoken: Peruvian Scientologist: Question Answer Notes Scientologist [address] [employer] Alcohol Screening: Question Answer Notes [...] a day Not-Taking PROCEDURES No Information RESULTS No Results REASON FOR VISIT [facility] gastro MEDICAL (GENERAL) HISTORY Type Description Date Medical [...] PAD-- s/p left SFA balloon a ngioplasty [facility], complicated by retroperitoneal hematoma, needed IVF/admission; repeat BOBBIN CLEANER/stent left SFA 03/05, left SFA angioplasty/stent 09/04; 01/06: 80% in-stent stenosis left SFA stent Medical History parox at [facility]-- 03/05, convert ed in ER; follows [facility], long-term anticoagulation advised; admitted [facility] for at [facility] RVR by [facility] 10/07 Medical History chronic GI blood loss, admit [facility] 04/08 with GHgb 4.x, neg EGD/colo [...] retroperitoneal hematoma, needed IVF/admission 09/03 Surgical History BOBBIN CLEANER/stent left SFA [facility]; stent , 09/04, 06/08 03/05; 09/04; 06/08 Surgical History left stent 09/03/16 Surgical History EGD/colonoscopy--neg EGD biopsies; no co dominga bx done 11/09 Surgical History EGD--ectopic gastric mucosa visualized, no biopsies 04/08 Hospitalization History cardiac 10/07 Hospitalization History GI bleed/anemia 11/09 Goals Section No Information Health Concerns No Information MEDICAL EQUIPMENT No Information MENTAL STATUS No Information FUNCTIONAL STATUS No Information ASSESSMENTS No Information PLAN OF TREATMENT Next Appt Details Provider Name:Karlo Lucero, 2020-09 02:15:00 PM, [address] [place] [address], [phone], Provider Name:Karlo Lucero, 2020-10 11:00:00 AM, [address] [place] [address], [phone], Provider Name:Chitra Aries, 2021-01-29 10:30:00 AM, [address] [place], [address], Insurance Providers Payer Name Payer Address Payer Phone Insured Name Patient Relati onship to Insured Coverage Start Date Coverage End Date MEDICARE Part A and B [address] [facility] [id number] JOHN SEXTON [facility]ly [facility] [address] [facility] [id number] JOHN SEXTON self
--- OUTSIDE RECORDS SUMMARY | 2020-10-04 12:33 | CCD ---
Author Author [facility] Organization [facility] Address Unknown Phone Unavailable Care Team Providers Care Wafer Machine Operator Name Role Phone JazmineKarlo Unavailable PROBLEMS Type Condition ICD9-CM Code [id number] Code Onset Dates Condition S tatus SNOMED Code Notes Problem PAD (peripheral artery disease) I73.9 Active 030700882 Problem History of angioplasty of peripheral vessel Z98.62 Active 013882563 Problem Spinal stenosis, lumbosacral region M48.07 Acti ve 10637479 Problem Chronic kidney disease, stage 3 (moderate) N18.3 Active 749495565 Problem Gastro-esophageal reflux disease without esophagitis K21.9 Active 878923272 Problem Nonrheumatic aortic valve disorder, 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 Active 1846014 on echo 02/01; due for repeat 02/03 Problem 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 Active 471588009 Problem Allergic rhinitis, unspecified J30.9 Active 6 1388263 Problem Disorder of carbohydrate metabolism, 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 Active 75231158 Problem Nontoxic single thyroid nodule E04.1 Active 1 39883560 Problem Hypothyroidism, unspecified E03.9 Active 4093 0008 Problem Other iron deficiency anemia D50.8 Active 875 51840 Problem Mixed hyperlipidemia E78.2 Active 810695920 Problem Slow transit constipation K59.01 Active 084128 07 Problem Restless legs syndrome G25.81 Active 65750258 Problem Atherosclerosis with claudication of extremity I70 .219 Active 742675502 Problem Paroxysmal atrial fibrillation I48.0 Active 2 25632613 Problem Hypertensive heart disease without heart failure I 11.9 Active 35999132 Problem Foot ulcer, left, limited to breakdown of skin L97 .521 Active 51593726 Problem Medicare annual wellness visit, subsequent Z00.00 Active 387566638 ALLERGIES Allergen (clinical drug ingredient) Drug/Non Drug Allergy do cumented on EMR Reaction Allergy Type Onset Date Status spironolactone Aldactone([facility] Code:[address]-87) cramps in legs /nausea Drug Allergy Active Zybosvaldo Hives Drug Allergy Active ENCOUNTERS from 1940 to 2020-07-30 Encounter Location Date Provider Diagnosis [facility] [place] [address] [place] [address] Jun, Mitesh Lucero IMMUNIZATIONS Vaccine Route Administration Date Status Zoster 50mcg/0.5mL (Shingrix) Unknown May 20, 2018 Ad ministered Influenza (Pharmacy Given) Unknown Jun 25, 2020 Admin istered Influenza (18 yrs & older) Flublok IM [...] some Language: Question Answer Notes Languages spoken: Hungarian Rastafarian: Question Answer Notes Rastafarian 21 [employer] Alcohol Screening: Question Answer Notes Did you [...] MEDICATIONS Medication SIG (Take, Route, Frequency, Duration) Start Date En d Date Status Ranitidine HCl 300MG 1 tablet [...] Protonix 40MG DR 1 tablet Orally bid Not- Taking Furosemide 20MG 1 tablet Orally Once a day for 90 Active Amoxicillin 875 MG 1 tablet Orally every 12 hrs for 10 day(s) 2019 Not-Taking Eliquis 5 MG 8 oz Orally bid Not-Taking AmLODIPine Besylate 5 MG 1 tablet Orally [...] Active Vitamin D3 1,000 units orally Daily Act [place] Dofetilide 250 MCG 2 capsules Orally Twice [...] Information RESULTS No Results REASON FOR VISIT unable to process GI panel MEDICAL (GENERAL) HISTORY Type Description Date Medical [...] PAD-- s/p left SFA balloon a ngioplasty [facility], complicated by retroperitoneal hematoma, needed IVF/admission; repeat AIR CHIEF MARSHAL/stent left SFA 03/05, left SFA angioplasty/stent 09/04; 01/06: 80% in-stent stenosis left SFA stent Medical History parox at [facility]-- 03/05, convert ed in ER; follows [facility], long-term anticoagulation advised; admitted [facility] for at [facility] RVR by [facility] 10/07 Medical History chronic GI blood loss, admit [facility] 04/08 with GHgb 4.x, neg EGD/colo 11/09, [...] retroperitoneal hematoma, needed IVF/admission 09/03 Surgical History AIR CHIEF MARSHAL/stent left SFA [facility]; stent , 09/04, 06/08 [...] Information ASSESSMENTS No Information PLAN OF TREATMENT Medication Medication Name Sig Start Date Stop Date Levothyroxine Sodium 100 MCG 1 tablet every morning on an empty stomach Orally once a day for 90 Next Appt Details Provider Name:Karlo Jazmine, 2020-07 02:00:00 PM, [address], [place], [address], Provider Name:Chitra Chris, 2021-01-29 10:30:00 AM, [address] [place], [address], Insurance Providers Payer Name Payer Address Payer Phone Insured Name Patient Relati onship to Insured Coverage Start Date Coverage End Date [facility] [address] [facility] [id number] JOHN SEXTON MEDICARE Part A and B [address] [facility] [phone] JOHN SEXTON self
--- OUTSIDE RECORDS SUMMARY | 2020-10-04 12:33 | CCD ---
Author Author [facility] Organization [facility] Address Unknown Phone Unavailable Care Team Providers Care Truck Terminal Manager Name Role Phone Geovanna Garcia MD Unavailable Unavailable Olitranmaria elena, Geovanna Smith MD Unavailable Unavailable Radha, Geovanna Smith MD Unavailable Unavailable Olitranmaria elena, Geovanna Smith MD Unavailable Unavailable Olitranmaria elena, Geovanna Smith MD Unavailable Unavailable Cederstrand, Geovanna Smith MD Unavailable Unavailable Olitranmaria elena, Geovanna Smith MD Unavailable Unavailable Olitranmaria elena, Geovanna Smith MD Unavailable Unavailable Olitrand, Geovanna Smith MD Unavailable Unavailable Olitrand, Geovanna Smith MD Unavailable Unavailable Olitrand, Geovanna Smith MD Unavailable Unavailable Radha, Geovanna Smith MD Unavailable Unavailable Radha, Geovanna Smith MD Unavailable Unavailable Olitranmaria elena, Geovanna Smith MD Unavailable Unavailable Trickey, J Haydee PA Unavailable Unavailable Trickey, J Haydee PA Unavailable Unavailable Trickey, J Haydee PA Unavailable Unavailable Trickey, J Haydee PA Unavailable Unavailable Trickey, J Haydee PA Unavailable Unavailable Trickey, J Haydee PA Unavailable Unavailable Trickey, J Haydee PA Unavailable Unavailable Trickey, J Haydee PA Unavailable Unavailable Trickey, J Haydee PA Unavailable Unavailable Trickey, J Haydee PA Unavailable Unavailable Trickey, J Haydee PA Unavailable Unavailable Trickey, J Haydee PA Unavailable Unavailable Trickey, J Haydee PA Unavailable Unavailable Trickey, J Haydee PA Unavailable Unavailable Trickey, J Haydee PA Unavailable Unavailable Trickey, J Haydee PA Unavailable Unavailable Trickey, J Haydee PA Unavailable Unavailable Trickey, J Haydee PA Unavailable Unavailable Trickey, J Haydee PA Unavailable Unavailable Trickey, J Haydee PA Unavailable Unavailable Trickey, J Haydee PA Unavailable Unavailable Trickey, J Haydee PA Unavailable Unavailable Trickey, J Haydee PA Unavailable Unavailable Trickey, J Haydee PA Unavailable Unavailable Trickey, J Haydee PA Unavailable Unavailable Trickey, J Haydee PA Unavailable Unavailable Trickey, J Haydee PA Unavailable Unavailable Trickey, J Haydee PA Unavailable Unavailable Trickey, J Haydee PA Unavailable Unavailable Trickey, J Haydee PA Unavailable Unavailable Trickey, J Haydee PA Unavailable Unavailable Trickey, J Haydee PA Unavailable Unavailable Trickey, J Haydee PA Unavailable Unavailable Trickey, J Haydee PA Unavailable Unavailable Trickey, J Haydee PA Unavailable Unavailable Trickey, J Haydee PA Unavailable Unavailable Trickey, J Haydee PA Unavailable Unavailable Trickey, J Haydee PA Unavailable Unavailable Trickey, J Haydee PA Unavailable Unavailable Trickey, J Haydee PA Unavailable Unavailable Trickey, J Haydee PA Unavailable Unavailable Trickey, J Haydee PA Unavailable Unavailable Trickey, J Haydee PA Unavailable Unavailable Trickey, J Haydee PA Unavailable Unavailable Trickey, J Haydee PA Unavailable Unavailable Trickey, J Haydee PA Unavailable Unavailable Trickey, J Haydee PA Unavailable Unavailable Trickey, J Haydee PA Unavailable Unavailable Trickey, J Haydee PA Unavailable Unavailable Trickey, J Haydee PA Unavailable Unavailable Trickey, J Haydee PA Unavailable Unavailable Trickey, J Haydee PA Unavailable Unavailable Waters, L Mihaela RPA Unavailable Unavailable Waters, L Mihaela RPA Unavailable Unavailable Waters, L Mihaela RPA Unavailable Unavailable Waters, L Mihaela RPA Unavailable Unavailable Waters, L Mihaela RPA Unavailable Unavailable Waters, L Mihaela RPA Unavailable Unavailable Waters, L Mihaela RPA Unavailable Unavailable Waters, L Mihaela RPA Unavailable Unavailable Waters, L Mihaela RPA Unavailable Unavailable Waters, L Mihaela RPA Unavailable Unavailable Waters, L Mihaela RPA Unavailable Unavailable Waters, L Mihaela RPA Unavailable Unavailable Waters, L Mihaela RPA Unavailable Unavailable Waters, L Mihaela RPA Unavailable Unavailable Waters, L Mihaela RPA Unavailable Unavailable Waters, L Mihaela RPA Unavailable Unavailable Waters, L Mihaela RPA Unavailable Unavailable Waters, L Mihaela RPA Unavailable Unavailable Waters, L Mihaela RPA Unavailable Unavailable Waters, L Mihaela RPA Unavailable Unavailable Waters, L Mihaela RPA Unavailable Unavailable Waters, L Mihaela RPA Unavailable Unavailable Waters, L Mihaela RPA Unavailable Unavailable Waters, L Mihaela RPA Unavailable Unavailable Waters, L Mihaela RPA Unavailable Unavailable Waters, L Mihaela RPA Unavailable Unavailable Waters, L Mihaela RPA Unavailable Unavailable Waters, L Mihaela RPA Unavailable Unavailable Waters, L Mihaela RPA Unavailable Unavailable Waters, L Mihaela RPA Unavailable Unavailable Waters, L Mihaela RPA Unavailable Unavailable Waters, L Mihaela RPA Unavailable Unavailable NORMAN, O EVELIO MD Unavailable Unavailable NORMAN, O EVELIO MD Unavailable Unavailable NORMAN, O EVELIO MD Unavailable Unavailable NORMAN, O EVELIO MD Unavailable Unavailable NORMAN, O EVELIO MD Unavailable Unavailable NORMAN, O EVELIO MD Unavailable Unavailable NORMAN, O EVELIO MD Unavailable Unavailable NORMAN, O EVELIO MD Unavailable Unavailable NORMAN, O EVELIO MD Unavailable Unavailable NORMAN, O EVELIO MD Unavailable Unavailable NORMAN, O EVELIO MD Unavailable Unavailable NORMAN, O EVELIO MD Unavailable Unavailable NORMAN, O EVELIO MD Unavailable Unavailable NORMAN, O EVELIO MD Unavailable Unavailable NORMAN, O EVELIO MD Unavailable Unavailable NORMAN, O EVELIO MD Unavailable Unavailable NORMAN, O EVELIO MD Unavailable Unavailable NORMAN, O EVELIO MD Unavailable Unavailable NORMAN, O EVELIO MD Unavailable Unavailable NORMAN, O EVELIO MD Unavailable Unavailable NORMAN, O EVELIO MD Unavailable Unavailable NOMRAN, O EVELIO MD Unavailable Unavailable NORMAN, O EVELIO MD Unavailable Unavailable NORMAN, O EVELIO MD Unavailable Unavailable NORMAN, O EVELIO MD Unavailable Unavailable NORMAN, O EVELIO MD Unavailable Unavailable NORMAN, O EVELIO MD Unavailable Unavailable NORMAN, O EVELIO MD Unavailable Unavailable NORMAN, O EVELIO MD Unavailable Unavailable NORMAN, O EVELIO MD Unavailable Unavailable NORMAN, O EVELIO MD Unavailable Unavailable NORMAN, O EVELIO MD Unavailable Unavailable NORMAN, O EVELIO MD Unavailable Unavailable NORMAN, O EVELIO MD Unavailable Unavailable NORMAN, O EVELIO MD Unavailable Unavailable NORMAN, O EVELIO MD Unavailable Unavailable NORMAN, O EVELIO MD Unavailable Unavailable NORMAN, O EVELIO MD Unavailable Unavailable NORMAN, O EVELIO MD Unavailable Unavailable NORMAN, O EVELIO MD Unavailable Unavailable NORMAN, O EVELIO MD Unavailable Unavailable Foster, N Mesfin COURSE INSTRUCTOR Unavailable Unavailable Foster, N Mesfin COURSE INSTRUCTOR Unavailable Unavailable Sury, N Mesfin COURSE INSTRUCTOR Unavailable Unavailable Sury, N Mesfin COURSE INSTRUCTOR Unavailable Unavailable Sury, N Mesfin COURSE INSTRUCTOR Unavailable Unavailable Sury, N Mesfin COURSE INSTRUCTOR Unavailable Unavailable Sury, N Mesfin COURSE INSTRUCTOR Unavailable Unavailable Sury, N Mesfin COURSE INSTRUCTOR Unavailable Unavailable Foster, N Mesfin COURSE INSTRUCTOR Unavailable Unavailable Foster, N Mesfin COURSE INSTRUCTOR Unavailable Unavailable Foster, N Mesfin COURSE INSTRUCTOR Unavailable Unavailable Foster, N Mesfin COURSE INSTRUCTOR Unavailable Unavailable Foster, N Mesfin COURSE INSTRUCTOR Unavailable Unavailable Sury, N Mesfin COURSE INSTRUCTOR Unavailable Unavailable Sury, N Mesfin COURSE INSTRUCTOR Unavailable Unavailable Foster, N Mesfin COURSE INSTRUCTOR Unavailable Unavailable Sury, N Mesfin COURSE INSTRUCTOR Unavailable Unavailable Foster, N Mesfin COURSE INSTRUCTOR Unavailable Unavailable Sury, N Mesfin COURSE INSTRUCTOR Unavailable Unavailable Foster, N Mesfin COURSE INSTRUCTOR Unavailable Unavailable Sury, N Mesfin COURSE INSTRUCTOR Unavailable Unavailable Foster, N Mesfin COURSE INSTRUCTOR Unavailable Unavailable Foster, N Mesfin COURSE INSTRUCTOR Unavailable Unavailable Foster, N Mesfin COURSE INSTRUCTOR Unavailable Unavailable Sury, N Mesfin COURSE INSTRUCTOR Unavailable Unavailable Sury, N Mesfin COURSE INSTRUCTOR Unavailable Unavailable Sury, N Mesfin COURSE INSTRUCTOR Unavailable Unavailable Sury, N Mesfin COURSE INSTRUCTOR Unavailable Unavailable Sury, N Mesfin COURSE INSTRUCTOR Unavailable Unavailable Sury, N Mesfin COURSE INSTRUCTOR Unavailable Unavailable REINDL, JALEEL BOSTON Unavailable Unavailable REINDL, JALEEL BOSTON Unavailable Unavailable REINDL, JALEEL BOSTON Unavailable Unavailable REINDL, JALEEL BOSTON Unavailable Unavailable REINDL, JALEEL BOSTON Unavailable Unavailable REINDL, JALEEL BOSTON Unavailable Unavailable REINDL, JALEEL BOSTON Unavailable Unavailable REINDL, JALEEL BOSTON Unavailable Unavailable REINDL, JALEEL BOSTON Unavailable Unavailable REINDL, JALEEL BOSTON Unavailable Unavailable REINDL, JALEEL BOSTON Unavailable Unavailable REINDL, JALEEL BOSTON Unavailable Unavailable REINDL, JALEEL BOSTON Unavailable Unavailable REINDL, JALEEL BOSTNO Unavailable Unavailable REINDL, JALEEL BOSTON Unavailable Unavailable REINDL, JALEEL BOSTON Unavailable Unavailable REINDL, JALEEL BOSTON Unavailable Unavailable REINDL, JALEEL BOSTON Unavailable Unavailable REINDL, JALEEL BOSTON Unavailable Unavailable REINDL, JALEEL BOSTON Unavailable Unavailable REINDL, JALEEL BOSTON Unavailable Unavailable REINDL, JALEEL BOSTON Unavailable Unavailable REINDL, JALEEL BOSTON Unavailable Unavailable REINDL, JALEEL BOSTON Unavailable Unavailable REINDL, JALEEL BOSTON Unavailable Unavailable REINDL, JALEEL BOSTON Unavailable Unavailable REINDL, JALEEL BOSTON Unavailable Unavailable REINDL, JALEEL BOSTON Unavailable Unavailable REINDL, JALEEL BOSTON Unavailable Unavailable REINDL, JALEEL BOSTON Unavailable Unavailable REINDL, JALEEL BOSTON Unavailable Unavailable REINDL, JALEEL BOSTON Unavailable Unavailable REINDL, JALEEL BOSTON Unavailable Unavailable REINDL, JALEEL BOSTON Unavailable Unavailable REINDL, JALEEL BOSTON Unavailable Unavailable REINDL, JALEEL BOSTON Unavailable Unavailable REINDL, JALEEL BOSTON Unavailable Unavailable REINDL, JALEEL BOSTON Unavailable Unavailable REINDL, JALEEL BOSTON Unavailable Unavailable REINDL, JALEEL BOSTON Unavailable Unavailable REINDL, JALEEL BOSTON Unavailable Unavailable REINDL, JALEEL BOSTON Unavailable Unavailable Re-disclosure Warning The records that you are about to access may contain information from federally-assisted alcohol or drug abuse programs. If such information is present, then the following federally mandated warning applies: This information has been disclosed to you from records protected by federal confidentiality rules (42 CFR part 2). The federal rules prohibit you from making any further disclosure of this information unless further disclosure is expressly permitted by the written consent of the person to whom it pertains or as otherwise permitted by 42 CFR part 2. A general authorization for the release of medical or other information is NOT sufficient for this purpose. The Federal rules restrict any use of the information to criminally investigate or prosecute any alcohol or drug abuse patient.The records that you are about to access may contain highly sensitive health information, the redisclosure of which is protected by Article 27-F of the [facility] Public Health law. If you continue you may have access to information: Regarding HIV / AIDS; Provided by facilities licensed or operated by the [facility] Office of Mental Health; or Provided by the [facility] Office for People With Developmental Disabilities. If such information is present, then the following [facility] mandated warning applies: This information has been disclosed to you from confidential records which are protected by state law. State law prohibits you from making any further disclosure of this information without the specific written consent of the person to whom it pertains, or as otherwise permitted by law. Any unauthorized further disclosure in violation of state law may result in a fine or fpc sentence or both. A general authorization for the release of medical or other information is NOT sufficient authorization for further disc losure. Allergies and Adverse Reactions Type Description Substance Reaction Status Data Source(s ) Maggi Tay Hives Active eCW1 ([facility]) Drug allergy Aldactone Spironolactone cramps in legs/nausea Active eCW1 ([facility]) Zybosvaldo Tay Zybosvaldo Hives Active eCW1 ([facility]) Zybosvaldo Nicoleybosvaldo Zyban Hives Active eCW1 ([facility]) Zybosvaldo Tay Zybosvaldo Hives Active eCW1 ([facility]) Coreyybosvaldo Tay Zybosvaldo Hives Active eCW1 ([facility]) Family History Family Member Name Family Member Gender Family Member Status Date o f Status Description Data Source(s) Unknown Unknown Problem MEDENT ([facility]) Unknown Male Problem MEDENT ([facility]) Unknown Unknown Problem MEDENT ([facility]) Unknown Unknown Problem MEDENT ([facility]) Encounters Encounter Providers Location Date Indications Data Source(s ) Outpatient Attender: JALEEL Singh/Jimy/Laz/Barbara saucedo 09/04/2020 12:30:00 PM EST MEDENT ([facility]) Unknown [address] [facility] [place] [address] 08/26/2020 12:00:00 AM EST [facility]CW1 [facility]) Office Visit Attender: Haydee ALEXIS Main office - [facility] 08/14/2020 10:00:00 AM EST MEDENT ([facility], ) Outpatient [address] [facility] [place] [address] 08/13/2020 12:00:00 AM EST eCW1 ([facility]) Unknown [address] [facility] [place] [address] 08/07/2020 12:00:00 AM EST eCW1 ([facility]) Unknown [address] [facility] [place] [address] 08/07/2020 12:00:00 AM EST eCW1 ([facility]) Unknown [address] [facility] [place] [address] 08/06/2020 12:00:00 AM EST [facility] Unknown [address] [facility] [place] [address] 07/15/2020 12:00:00 AM EDT [facility] [place]) Outpatient [address] [facility] [place] [address] 07/04/2020 12:00:00 AM EDT [facility]CW1 [facility]) Unknown [address] [facility] [place] [address] 06/28/2020 12:00:00 AM EDT eCW1 ([facility]) Outpatient Attender: Haydee ALEXIS Main office - [facility] 05/14/2020 11:30:00 AM EDT MEDENT ([facility]) Outpatient Attender: EVELIO Singh/Jimy/Laz/Re indl 04/15/2020 10:00:00 AM EDT MEDENT ([facility]) Office Visit, Est Pt., Level 2 [address] [place] [address] 04/11/2020 12:00:00 AM EDT eCW1 ([facility]) Outpatient Attender: Sarah Singh/Jimy/Laz/ Reindl 04/08/2020 04:15:00 PM EDT MEDENT ([facility]) Outpatient Attender: Mesfin MORA 04/02/2020 12 :00:00 AM EDT [address] [address] 04/02/2020 12:00:00 AM EDT eCW1 ([facility]) Outpatient Attender: Mesfin MAURICE-SJPFinnJAGDISH 020 12:00:00 AM EDT - 03/11/2020 11:59:07 AM EDT [facility] Outpatient Attender: Mihaela Waters RPA 03/07/2020 10:00:0 0 AM [facility] Outpatient Attender: Mihaela Singh/Jimy/Laz/R eindl 02/29/2020 10:00:00 AM EDT MEDENT ([facility]) [address] [address] 02/16/2020 12:00:00 AM EDT eCW1 ([facility]) [address] [address] 02/07/2020 12:00:00 AM EDT eCW1 ([facility]) [facility] [address] [place] [address] 01/29/2020 12:00:00 AM EDT eCW1 ([facility]) [facility] [place]m [address] [facility] [place] [address] 01/08/2020 12:00:00 AM EDT eCW1 ([facility]) [facility] [place] [address] [facility] [place] [address] 12/07/2019 12:00:00 AM EDT eCW1 ([facility]) [facility] Tamiko [address] [facility] [place] [address] 12/06/2019 12:00:00 AM EDT eCW1 ([facility]) [facility] [address] [facility] [place] [address] 10/12/2019 12:00:00 AM EST eCW1 ([facility]) Outpatient Attender: JALEEL Singh/Jimy/Laz/Barbara saucedo 10/04/2019 12:45:00 PM EST MEDENT ([facility] [address] [place] [address], [place] [address] 08/31/2019 12:00:00 AM EST eCW1 ([facility]) Immunizations Vaccine Date Status Description Data Source(s) INFLUENZA VIRUS VACCINE QUADRIVAL SPLIT 2020-21(65 YR UP)/PF 06/27/2020 12:00:00 AM EDT completed [facility] IIV3. This is one of two codes replacing CVX 15, which is being retired. 06/25/2020 11:27:00 AM EDT completed eCW1 ([facility]) IIV3. This is one of two codes replacing CVX 15, which is being retired. 06/25/2020 11:27:00 AM EDT completed eCW1 ([facility]) IIV3. This is one of two codes replacing CVX 15, which is being retired. 06/25/2020 11:27:00 AM EDT completed eCW1 ([facility]) IIV3. This is one of two codes replacing CVX 15, which is being retired. 06/25/2020 11:27:00 AM EDT completed eCW1 ([facility]) IIV3. This is one of two codes replacing CVX 15, which is being retired. 06/25/2020 11:27:00 AM EDT completed eCW1 ([facility]) IIV3. This is one of two codes replacing CVX 15, which is being retired. 06/25/2020 11:27:00 AM EDT completed eCW1 ([facility]) IIV3. This is one of two codes replacing CVX 15, which is being retired. 06/25/2020 11:27:00 AM EDT completed eCW1 ([facility]) Medications Medication Brand Name Start Date Product Form Dose Route Admi nistrative Instructions Pharmacy Instructions Status Indications Reaction Description Data Source(s) 17 gram/dose 09/05/2020 12:00:00 AM EST powder 238 USE DIRECTED PER PREP FOR CAPSULE ENDOSCOPY USE DIRECTED PER PREP FOR CAPSULE ENDOSCOPY SOLD: 09/18/2020 [facility] POLYETHYLENE GLYCOL 3350 142 MG/ML Oral Solution [Miralax] M iralax 09/04/2020 12:00:00 AM EST active M EDENT ([facility]) 5 mg 08/16/2020 12:00:00 AM EST tablet 20 TAKE ONE TABLET BY MOUTH TWICE A DAY TAKE ONE TABLET BY MOUTH TWICE A DAY SOLD: 08/19/2020 [facility] 100 mg/mL 03/31/2020 12:00:00 AM EDT suspension 1200 TAKE 10ML BY MOUTH EVERY 6 HOURS TAKE 10ML BY MOUTH EVERY 6 HOURS SOLD: 04/02/2020 [facility] 90 mcg/actuation 02/07/2020 12:00:00 AM EDT HFA aerosol inha ler 8 INHALE TWO PUFFS BY MOUTH FOUR TIMES A DAY NEEDED INHALE TWO PUFFS BY MOUTH FOUR TIMES A DAY NEEDED SOLD: 02/07/2020 [facility] 200 ACTUAT Albuterol 0.09 MG/ACTUAT Mete red Dose Inhaler [ProAir] ProAir HFA 108 (90 Base) MCG/ACT ProAir HFA 108 (90 Base) MCG/ACT 02/07/2020 12:00:00 AM EDT 2.0 {puff_as_needed} suspended P roAir HFA 108 (90 Base) MCG/ACT eCW1 ([facility]) 200 ACTUAT Albuterol 0.09 MG/ACTUAT Mete red Dose Inhaler [ProAir] ProAir HFA 108 (90 Base) MCG/ACT ProAir HFA 108 (90 Base) MCG/ACT 02/07/2020 12:00:00 AM EDT 2.0 {puff_as_needed} suspended P roAir HFA 108 (90 Base) MCG/ACT eCW1 ([facility]) 200 ACTUAT Albuterol 0.09 MG/ACTUAT Mete red Dose Inhaler [ProAir] ProAir HFA 108 (90 Base) MCG/ACT ProAir HFA 108 (90 Base) MCG/ACT 02/07/2020 12:00:00 AM EDT 2.0 {puff_as_needed} suspended P roAir HFA 108 (90 Base) MCG/ACT eCW1 ([facility]) 200 ACTUAT Albuterol 0.09 MG/ACTUAT Mete red Dose Inhaler [ProAir] ProAir HFA 108 (90 Base) MCG/ACT ProAir HFA 108 (90 Base) MCG/ACT 02/07/2020 12:00:00 AM EDT 2.0 {puff_as_needed} suspended P roAir HFA 108 (90 Base) MCG/ACT eCW1 ([facility]) 200 ACTUAT Albuterol 0.09 MG/ACTUAT Mete red Dose Inhaler [ProAir] ProAir HFA 108 (90 Base) MCG/ACT ProAir HFA 108 (90 Base) MCG/ACT 02/07/2020 12:00:00 AM EDT 2.0 {puff_as_needed} suspended P roAir HFA 108 (90 Base) MCG/ACT eCW1 ([facility]) 200 ACTUAT Albuterol 0.09 MG/ACTUAT Mete red Dose Inhaler [ProAir] ProAir HFA 108 (90 Base) MCG/ACT ProAir HFA 108 (90 Base) MCG/ACT 02/07/2020 12:00:00 AM EDT 2.0 {puff_as_needed} suspended P roAir HFA 108 (90 Base) MCG/ACT eCW1 ([facility]) 200 ACTUAT Albuterol 0.09 MG/ACTUAT Mete red Dose Inhaler [ProAir] ProAir HFA 108 (90 Base) MCG/ACT ProAir HFA 108 (90 Base) MCG/ACT 02/07/2020 12:00:00 AM EDT 2.0 {puff_as_needed} suspended P roAir HFA 108 (90 Base) MCG/ACT eCW1 ([facility]) 200 ACTUAT Albuterol 0.09 MG/ACTUAT Mete red Dose Inhaler [ProAir] ProAir HFA 108 (90 Base) MCG/ACT ProAir HFA 108 (90 Base) MCG/ACT 02/07/2020 12:00:00 AM EDT active 2 puff2 as neede d eCW1 ([facility]) 200 ACTUAT Albuterol 0.09 MG/ACTUAT Mete red Dose Inhaler [ProAir] ProAir HFA 108 (90 Base) MCG/ACT ProAir HFA 108 (90 Base) MCG/ACT 02/07/2020 12:00:00 AM EDT 2.0 {puff_as_needed} suspended P roAir HFA 108 (90 Base) MCG/ACT eCW1 ([facility]) 200 ACTUAT Albuterol 0.09 MG/ACTUAT Mete red Dose Inhaler [ProAir] ProAir HFA 108 (90 Base) MCG/ACT ProAir HFA 108 (90 Base) MCG/ACT 02/07/2020 12:00:00 AM EDT 2.0 {puff_as_needed} suspended P roAir HFA 108 (90 Base) MCG/ACT eCW1 ([facility]) 200 ACTUAT Albuterol 0.09 MG/ACTUAT Mete red Dose Inhaler [ProAir] ProAir HFA 108 (90 Base) MCG/ACT ProAir HFA 108 (90 Base) MCG/ACT 02/07/2020 12:00:00 AM EDT 2.0 {puff_as_needed} suspended P roAir HFA 108 (90 Base) MCG/ACT eCW1 ([facility]) benzonatate 100 MG Oral Capsule Benzonatate 100 MG Benzonata te 100 MG 12/07/2019 12:00:00 AM EDT active 1 capsu le as needed eCW1 ([facility]) benzonatate 100 MG Oral Capsule Benzonatate 100 MG Benzonata te 100 MG 12/07/2019 12:00:00 AM EDT 1.0 {capsule_as_needed} suspend ed Benzonatate 100 MG eCW1 ([facility]) benzonatate 100 MG Oral Capsule Benzonatate 100 MG Benzonata te 100 MG 12/07/2019 12:00:00 AM EDT suspended 1 ca psule as needed eCW1 ([facility]) benzonatate 100 MG Oral Capsule Benzonatate 100 MG Benzonata te 100 MG 12/07/2019 12:00:00 AM EDT 1.0 {capsule_as_needed} suspend ed Benzonatate 100 MG eCW1 ([facility]) benzonatate 100 MG Oral Capsule Benzonatate 100 MG Benzonata te 100 MG 12/07/2019 12:00:00 AM EDT 1.0 {capsule_as_needed} suspend ed Benzonatate 100 MG eCW1 ([facility]) benzonatate 100 MG Oral Capsule Benzonatate 100 MG Benzonata te 100 MG 12/07/2019 12:00:00 AM EDT 1.0 {capsule_as_needed} suspend ed Benzonatate 100 MG eCW1 ([facility]) Amoxicillin 875 MG Oral Tablet Amoxicillin 875 MG 12/07/2019 12:00: 00 AM EDT 1.0 {tablet} suspended Amoxicillin 875 M G eCW1 ([facility]) Amoxicillin 875 MG Oral Tablet Amoxicillin 875 MG 12/07/2019 12:00: 00 AM EDT 1.0 {tablet} suspended Amoxicillin 875 M G eCW1 ([facility]) benzonatate 100 MG Oral Capsule Benzonatate 100 MG Benzonata te 100 MG 12/07/2019 12:00:00 AM EDT 1.0 {capsule_as_needed} suspend ed Benzonatate 100 MG eCW1 ([facility]) Amoxicillin 875 MG Oral Tablet Amoxicillin 875 MG 12/07/2019 12:00: 00 AM EDT 1.0 {tablet} suspended Amoxicillin 875 M G eCW1 ([facility]) benzonatate 100 MG Oral Capsule Benzonatate 100 MG Benzonata te 100 MG 12/07/2019 12:00:00 AM EDT 1.0 {capsule_as_needed} suspend ed Benzonatate 100 MG eCW1 ([facility]) Amoxicillin 875 MG Oral Tablet Amoxicillin 875 MG 12/07/2019 12:00: 00 AM EDT 1.0 {tablet} suspended Amoxicillin 875 M G eCW1 ([facility]) benzonatate 100 MG Oral Capsule Benzonatate 100 MG Benzonata te 100 MG 12/07/2019 12:00:00 AM EDT 1.0 {capsule_as_needed} suspend ed Benzonatate 100 MG eCW1 ([facility]) Amoxicillin 875 MG Oral Tablet Amoxicillin 875 MG 12/07/2019 12:00: 00 AM EDT 1.0 {tablet} suspended Amoxicillin 875 M G eCW1 ([facility]) Amoxicillin 875 MG Oral Tablet Amoxicillin 875 MG 12/07/2019 12:00: 00 AM EDT active 1 tablet eCW1 ([facility]) Amoxicillin 875 MG Oral Tablet Amoxicillin 875 MG 12/07/2019 12:00: 00 AM EDT suspended 1 tablet eCW1 ([facility]) benzonatate 100 MG Oral Capsule Benzonatate 100 MG Benzonata te 100 MG 12/07/2019 12:00:00 AM EDT suspended 1 ca psule as needed eCW1 ([facility]) benzonatate 100 MG Oral Capsule Benzonatate 100 MG Benzonata te 100 MG 12/07/2019 12:00:00 AM EDT 1.0 {capsule_as_needed} suspend ed Benzonatate 100 MG eCW1 ([facility]) benzonatate 100 MG Oral Capsule BENZONATATE 12/07/2019 12:00:00 AM EDT capsule 30 TAKE ONE CAPSULE BY MOUTH THREE TIMES A DAY TAKE ONE CAPSULE BY MOUTH THREE TIMES A DAY SOLD: 12/07/2019 [facility] 875 mg 12/07/2019 12:00:00 AM EDT tablet 20 TAKE ONE TABLET BY MOUTH EVERY 12 HOURS FOR 10 DAYS TAKE ONE TABLET BY MOUTH EVERY 12 HOURS FOR 10 DAYS SO LD: 12/07/2019 [facility] 875 mg 12/07/2019 12:00:00 AM EDT tablet 20 TAKE ONE TABLET BY MOUTH EVERY 12 HOURS FOR 10 DAYS TAKE ONE TABLET BY MOUTH EVERY 12 HOURS FOR 10 DAYS SO LD: 12/18/2019 [facility] benzonatate 100 MG Oral Capsule Benzonatate 100 MG Benzonata te 100 MG 12/07/2019 12:00:00 AM EDT 1.0 {capsule_as_needed} suspend ed Benzonatate 100 MG eCW1 ([facility]) Amoxicillin 875 MG Oral Tablet Amoxicillin 875 MG 12/07/2019 12:00: 00 AM EDT suspended 1 tablet eCW1 ([facility]) Amoxicillin 875 MG Oral Tablet Amoxicillin 875 MG 12/07/2019 12:00: 00 AM EDT 1.0 {tablet} suspended Amoxicillin 875 M G eCW1 ([facility]) benzonatate 100 MG Oral Capsule Benzonatate 100 MG Benzonata te 100 MG 12/07/2019 12:00:00 AM EDT 1.0 {capsule_as_needed} suspend ed Benzonatate 100 MG eCW1 ([facility]) Amoxicillin 875 MG Oral Tablet Amoxicillin 875 MG 12/07/2019 12:00: 00 AM EDT 1.0 {tablet} suspended Amoxicillin 875 M G eCW1 ([facility]) Amoxicillin 875 MG Oral Tablet Amoxicillin 875 MG 12/07/2019 12:00: 00 AM EDT 1.0 {tablet} suspended Amoxicillin 875 M G eCW1 ([facility]) Amoxicillin 875 MG Oral Tablet Amoxicillin 875 MG 12/07/2019 12:00: 00 AM EDT 1.0 {tablet} suspended Amoxicillin 875 M G eCW1 ([facility]) Amoxicillin 875 MG Oral Tablet Amoxicillin 875 MG 12/07/2019 12:00: 00 AM EDT 1.0 {tablet} suspended Amoxicillin 875 M G eCW1 ([facility]) 420 gram 10/05/2019 12:00:00 AM EST recon soln 4000 A S DIRECTED DIRECTED SOLD: 10/18/2019 [facility] POLYETHYLENE GLYCOL 3350 105 MG/ML / Pot assium Chloride 0.51289 MEQ/ML / Sodium Bicarbonate 0.017 MEQ/ML / Sodium Chloride 0.0479 MEQ/ML Oral Solution [TriLyte] Trilyte 10/04/2019 12:00:00 AM EST completed MEDENT ([facility], ) Magnesium Hydroxide 80 MG/ML Oral Suspension Milk Of Magnesi a 10/04/2019 12:00:00 AM EST ORAL completed MEDENT ([facility], ) 500 mg 09/28/2019 12:00:00 AM EST capsule 28 TAKE ONE CAPSULE BY MOUTH EVERY 6 HOURS UNTIL FINISHED TAKE ONE CAPSULE BY MOUTH EVERY 6 HOURS UNTIL FINISHED SOLD: 09/28/2019 [facility] Insurance Providers Payer name Policy type / Coverage type Policy ID Covered democrat ID Covered democrat's relationship to chappell Policy Chappell Plan Information MEDICARE [id number] SP [id number] [facility] [id number] SP [id number] BCBS EMPIRE TH[place]ES[place] DIV [id number] SP [id number] [facility] [id number] SP [id number] BCBS EMPIRE TH[place] DIV [id number] BCBS EMPIRE TH[place] DIV [id number] SP [id number] [place] MED[place] DIVISION [id number] S [id number] [place] [id number] S [id number] [facility] [id number] S [id number] BCBS EMPIRE [id number] S [id number] MEDICARE [id number] [place] [id number] [place] BCBS [id number] [place]au YLS [id number] [place] MEDICARE DIVISION [id number] S [id number] [place]ICARE [place] [id number] S [id number] BCBS EMPIRE TH[place] DIV UNAVAILABLE UNAVAILABLE EXCELLUS BCBS [id number] MEDICARE [id number] MEDICARE [id number] Clau [id number] A ANSI-Commercial [id number] ANSI-Medicare Part B [id number] [place] [id number] Self [id number] Medicare Part B Medicare Primary [id number] Self [id number] MEDICARE [id number] SP [id number] A [place] [id number] Self [id number] Medicare Part B Medicare Primary [id number] Self [id number] ANSI-Commercial [id number] ANSI-Medicare Part [id number] ANSI-Commercial [id number] ANSI-Medicare Part B [id number] ANSI-Medicare Part B [id number] ANSI-Commercial [id number] ANSI-Commercial [id number] ANSI-Medicare Part B [id number] United [employer] Commercial [id number] Self [id number] Medicare Part B Medicare Primary [id number] Self [id number] MEDICARE [id number] SP [id number] A [employer] Commercial [id number] Self [id number] Medicare Part B Medicare Primary [id number] Self [id number] United Healthcare [place] Medigap Part B [id number] Self [id number] [place] Primary [id number] Self [id number] MEDICARE PI PI EXCELLUS BCBS PI PI MEDICARE [id number] Clau [id number] A [employer] [place] Medigap Part B [id number] Self [id number] [place] Primary [id number] Self [id number] United [employer] Commercial [id number] Self [id number] Medicare Part B Medicare Primary [id number] Self [id number] United [employer] Commercial [id number] Self [id number] Medicare Part B Medicare Primary [id number] Self [id number] United [employer] Commercial [id number] Self [id number] Medicare Part B Medicare Primary [id number] Self [id number] United [employer] Commercial [id number] Self [id number] Medicare Part B Medicare Primary [id number] Self [id number] United [employer] Commercial [id number] Self [id number] Medicare Part B Medicare Primary [id number] Self [id number] United [employer] Commercial [id number] Self [id number] Medicare Part B Medicare Primary [id number] Self [id number] United [employer] Commercial [id number] Self [id number] Medicare Part B Medicare Primary [id number] Self [id number] United [employer] Commercial [id number] Self 0 [id number] Medicare Part B Medicare Primary [id number] Self [id number] United [employer] Commercial [id number] Self [id number] Medicare Part B Medicare Primary [id number] Self [id number] United [employer] Commercial [id number] Self [id number] Medicare Part B Medicare Primary [id number] Self [id number] UNITED HEALTHCARE [id number] SP [id number] [facility] DIV [id number] SP [id number] MEDICARE [id number] SP [id number] A United [employer] [place] Medigap Part B Self Medicare [place] Gov't Servi Medicare Primary Self MEDICARE [id number] SP [id number] A United [employer] Commercial Self Medicare Part B Medicare Primary Self MEDICARE [id number] SP [id number] A [id number] SP [id number] Medicare (Part B) Medicare Primary Self [place] Plan-[employer] Medigap Part B Self MEDICARE [id number] SP [id number] [place], [place]) Medicare Primary Self Medicare Medicare Primary Self Medicare Medicare Primary Self UNITED HEALTHCARE S [id number] S [id number] MEDICARE P [id number] S [id number] A [id number] A [id number] Problems, Conditions, and Diagnoses Code Display Name Description Problem Type Effective Dates Data Source(s) R06.02 Shortness of breath Shortness of breath Diagnosis 0 04/02/2020 03:53:55 PM EDT [facility] I10 Essential (primary) hypertension Essential (primary) h ypertension Diagnosis 04/02/2020 03:53:55 PM EDT [facility] I73.9 Peripheral vascular disease, unspecified Peripheral vascular disease, unspecified Diagnosis 04/02/2020 03:53:55 PM EDT [facility] I48.0 Paroxysmal atrial fibrillation Paroxysmal atrial fibri llation Diagnosis 04/02/2020 03:53:55 PM EDT [facility] I35.1 Nonrheumatic aortic (valve) insufficienc y Nonrheumatic aortic (valve) insufficienc Diagnosis 04/02/2020 03:53:55 PM EDT [facility] E78.5 Hyperlipidemia, unspecified Hyperlipidemia, unspecifie d Diagnosis 04/02/2020 03:53:55 PM EDT [facility] E03.9 Hypothyroidism, unspecified Hypothyroidism, unspecifie d Diagnosis 03/11/2020 11:06:33 AM EDT [facility] 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, bilateral legs ATHSCL EKUK ARTERIES OF EXTRM W INTRMT PARAM, BI LEGS Diagnosis 03/07/2020 10:42:00 PM EDT [facility] Surgeries/Procedures Procedure Description Date Indications Data Source(s) Office Visit, Est Pt., Level 4 PC 02/07/2020 12:00:00 AM EDT eCW1 ([facility]) Office Visit, Est Pt., Level 2 FC 01/29/2020 12:00:00 AM EDT eCW1 ([facility]) Office Visit, Est Pt., Level 3 PC 01/29/2020 12:00:00 AM EDT eCW1 ([facility]) Endoscopy Upper GI Biopsy 11/13/2019 12:00:00 AM EST MEDENT ([facility], ) Colonoscopy Flexible Proximal To Splenic Flexure Diagnostic W/Or 11/13/2019 12:00:00 AM EST MEDENT ([facility], ) Results ID Date Data Source CBC - Complete Blood Count 08/13/2020 12:00:00 AM EST eCW1 ( [facility]) Name Value Range Interpretation Code Description Data Bobbi rce(s) Supporting Document(s) 5.3 4.0-10.0 WHITE BLOOD COUNT eCW1 ([facility]) 3.33 4.00-5.40 RED BLOOD COUNT eCW1 ([facility]) 10.1 12.0-15.5 HEMOGLOBIN eCW1 ([facility]) 100.6 80.0-96.0 MEAN CORPUSCULAR VOLUME e CW1 ([facility]) 30.3 27.0-33.0 MEAN CORPUSCULAR HEMOGLOB IN eCW1 ([facility]) 30.1 32.0-36.5 MEAN CORPUSCULAR HGB CONC eCW1 ([facility]) 33.5 36.0-47.0 HEMATOCRIT eCW1 ([facility]) 17.2 11.5-14.5 RED CELL DISTRIBUTION WID TH eCW1 ([facility]) 231 150-450 PLATELET COUNT, AUTOMATED eCW1 ([facility]) ID Date Data Source IBD SEROLOGY PANEL 07/12/2020 12:13:24 PM EDT eCW1 ([facility]) Name Value Range Interpretation Code Description Data Bobbi rce(s) Supporting Document(s) IBD SEROLOGY PANEL eCW1 ([facility]) ID Date Data Source MAGNESIUM LEVEL 07/04/2020 06:31:26 AM EDT eCW1 ([facility]) Name Value Range Interpretation Code Description Data Bobbi rce(s) Supporting Document(s) 2.6 MAGNESIUM LEVEL eCW1 ([facility]) ID Date Data Source TOTAL IRON BINDING CAPACIT 07/04/2020 06:31:26 AM EDT eCW1 ( [facility]) Name Value Range Interpretation Code Description Data Bobbi rce(s) Supporting Document(s) 444 TOTAL IRON BINDING CAPACITY eC W1 ([facility]) 84.0 PERCENT SATURATION eCW1 ([facility]) 373 IRON (FE) eCW1 ([facility]) ID Date Data Source Reticulocyte Count [employer] 07/04/2020 06:31:26 AM EDT eCW[facility] Name Value Range Interpretation Code Description Data Bobbi rce(s) Supporting Document(s) 3.4 RETICULOCYTE % eCW1 ([facility]) ID Date Data Source Basic Metabolic Profile (BMP) 07/04/2020 06:31:26 AM EDT eCW 1 ([facility]) Name Value Range Interpretation Code Description Data Bobbi rce(s) Supporting Document(s) 34 BLOOD UREA NITROGEN eCW1 ([facility]) 94 GLUCOSE, FASTING eCW1 ([facility]) 38.2 GLOMERULAR FILTRATION RATE eCW 1 ([facility]) 1.42 CREATININE FOR GFR eCW1 ([facility]) 141 SODIUM LEVEL eCW1 ([facility]) 4.4 POTASSIUM SERUM eCW1 ([facility]) 28 CARBON DIOXIDE LEVEL eCW1 ([facility]) 8.9 CALCIUM LEVEL eCW1 ([facility]) 106 CHLORIDE LEVEL eCW1 ([facility]) ID Date Data Source FERRITIN 07/04/2020 06:31:26 AM EDT eCW1 ([facility]) Name Value Range Interpretation Code Description Data Bobbi rce(s) Supporting Document(s) 23 FERRITIN eCW1 ([facility]) ID Date Data Source [id number] 03/11/2020 01:05:00 PM EDT [facility] Name Value Range Interpretation Code Description Data Bobbi rce(s) Supporting Document(s) SARS CORONAVIRUS 2 RNA [facility] This lab was ordered by [facility] and reported by [facility]. ID Date Data Source [id number] 03/07/2020 12:09:00 PM EDT [facility] DATE OF EXAMINATION: 03/07/2020 9:54 EDT DOPPLER ARTERIAL SINGLE LEVEL HISTORY: Atherosclerosis Duplex scan was performed using B-mode/mccord scale imaging and Doppler spectralanalysis and color flow. FLORIAN RIGHT LOWER EXTREMITY: Ankle brachial indices of the right lower extremity were performed. There is a bi- phasic waveform in the distal right posterior tibial artery. TheABI is 0.85. There is a mono-phasic waveform in the distal right dorsalis pedisartery. The FLORIAN is 0.85. IMPRESSION: Mildly stenotic plaque formation FLORIAN LEFT LOWER EXTREMITY: Ankle brachial indices of the left lower extremity were performed. There is a mono-phasic waveform in the distal left posterior tibial artery. TheABI is 0.9. There is a mono-phasic waveform in the distal left dorsalis pedisartery. The FLORIAN is 0.85. IMPRESSION: Mildly stenotic plaque formation. Electronically signed in [id number] by: Alisia Segura M.D. 03/07/2020 12:03 EDT Name Value Range Interpretation Code Description Data Bobbi rce(s) Supporting Document(s) ID Date Data Source [id number] 03/07/2020 12:09:00 PM EDT [facility] DATE OF EXAMINATION: 03/07/2020 9:54 EDT ART DOPPLER FLAKO LOWER EXTREM HISTORY: Atherosclerosis Duplex scan was performed using B-mode/mccord scale imaging and Doppler spectralanalysis and color flow. RIGHT LOWER EXTREMITY: Moderate calcified plaque formation is noted with model and biphasic waveform.There are no critical stenosis. IMPRESSION: Moderate calcified plaque formation without critical stenoses. LEFT LOWER EXTREMITY: There is a superficial femoral artery stent which appearspatent. Moderate calcified plaque formation is noted without any definitestenosis. IMPRESSION: Patent superficial femoral artery stents. Moderate calcified plaque formation without any definite critical stenosis. Electronically signed in [id number] by: Alisia Segura M.D. 03/07/2020 12:03 EDT Name Value Range Interpretation Code Description Data Bobbi rce(s) Supporting Document(s) ID Date Data Source [id number] 11/13/2019 01:06:00 PM EST MEDENT ([facility], ) Name Value Range Interpretation Code Description Data Bobbi rce(s) Supporting Document(s) Surgical pathology study Laboratory test result MEDENT ([facility], ) FINAL DIAGNOSIS A - Small bowel, biopsy: Small intestinal mucosa with overall preserved villous architecture. B - Stomach, gastritis, biopsy: Gastric mucosa, without significant acute or chronic inflammation. Focal features of reactive/chemical gastropathy are noted. 11/14/2019 - 1410 CLINICAL DIAGNOSIS Anemia 11/13/2019 - 145 GROSS DIAGNOSIS A - Received in formalin labeled "small bowel, R/O celiac" is a 0.8 x 0.3 x 0.2 cm aggregate of mucosal fragme nts. All in one. B - Received in formalin labeled "biopsy gastritis" is a 0.5 x 0.2 x 0.2 cm aggregate of mucosal fragments. All in one. - 11/13/2019 - 145 Signed Vasu Hurt MD 11/14/2019 1410 Procedure Social History Code Duration Value Status Description Data Source(s ) Smoking 08/13/2020 12:00:00 AM EST Former Smoker completed Former Smoker eCW1 ([facility]) Smoking 08/13/2020 12:00:00 AM EST Former Smoker completed Former Smoker eCW1 ([facility]) Smoking 07/04/2020 12:00:00 AM EDT Former Smoker completed Former Smoker eCW1 ([facility]) Smoking 07/04/2020 12:00:00 AM EDT Former Smoker completed Former Smoker eCW1 ([facility]) Smoking 07/04/2020 12:00:00 AM EDT Former Smoker completed Former Smoker eCW1 ([facility]) Smoking 07/04/2020 12:00:00 AM EDT Former Smoker completed Former Smoker eCW1 ([facility]) Smoking 07/04/2020 12:00:00 AM EDT Former Smoker completed Former Smoker eCW1 ([facility]) Smoking 04/11/2020 12:00:00 AM EDT Former Smoker completed Former Smoker eCW1 ([facility]) Smoking 04/11/2020 12:00:00 AM EDT Former Smoker completed Former Smoker eCW1 ([facility]) Smoking 02/07/2020 12:00:00 AM EDT Former Smoker completed Former Smoker eCW1 ([facility]) Vital Signs ID Date Data Source UNK Name Value Range Interpretation Code Description Data Source(s) Body surface area Derived from formula 1.75 m2 1.75 m2 [facility] ([facility]) Body weight 69.401 kg 69.401 kg [facility] ([facility]) [place] [facility] body weight 120 [lb_av] 120 [facility]av[facility] Body mass index (BMI) [Ratio] 26.3 kg/m2 26.3 k g/m2 [facility] ([facility]) Body weight 153.00 [lb_av] 153.00 [lb_av] [facility] T ([facility]) Body height 64 [in_i] 64 [in_i] [facility] ([facility]) 5'4" Diastolic blood pressure 70 mm[Hg] 70 mm[Hg] [facility] ([facility]) Systolic blood pressure 156 mm[Hg] 156 mm[Hg] M EDENT ([facility]) Diastolic blood pressure 70 mm[Hg] 70 mm[Hg] eCW1 ([facility]) Systolic blood pressure 132 mm[Hg] 132 mm[Hg] e CW1 ([facility]) Body temperature 97.5 [degF] 97.5 [degF] eCW1 ( [facility]) Respiratory rate 18 /min 18 /min eCW1 ([facility]) Heart rate 80 /min 80 /min eCW1 ([facility]) Body mass index (BMI) [Ratio] 26.43 kg/m2 26.43 kg/m2 eCW1 ([facility]) Body height 64 [in_i] 64 [in_i] eCW1 ([facility]) Body weight 154 [lb_av] 154 [lb_av] eCW1 ([facility]) Diastolic blood pressure 74 mm[Hg] 74 mm[Hg] eCW1 ([facility]) Systolic blood pressure 144 mm[Hg] 144 mm[Hg] e CW1 ([facility]) Body temperature 96.3 [degF] 96.3 [degF] eCW1 ( [facility]) Respiratory rate 18 /min 18 /min eCW1 ([facility]) Heart rate 55 /min 55 /min eCW1 ([facility]) Body mass index (BMI) [Ratio] 25.92 kg/m2 25.92 kg/m2 eCW1 ([facility]) Body height 64 [in_i] 64 [in_i] eCW1 ([facility]) Body weight 151 [lb_av] 151 [lb_av] eCW1 ([facility]) Respiratory rate 16 /min 16 /min MEDENT ( [facility], ) Heart rate 64 /min 64 /min MEDENT ([facility], ) Diastolic blood pressure 70 mm[Hg] 70 mm[Hg] MEDENT ([facility], ) Systolic blood pressure 140 mm[Hg] 140 mm[Hg] M EDENT ([facility], ) Body surface area Derived from formula 1.76 m2 1.76 m2 [facility] ([facility], ) Body weight 70.478 kg 70.478 kg [facility] ([facility], ) [place] body weight 120 [lb_av] 120 [lb_av] [facility] T ([facility], ) Body mass index (BMI) [Ratio] 26.7 kg/m2 26.7 k g/m2 [facility] ([facility], ) Body weight 155.38 [lb_av] 155.38 [lb_av] [facility] T ([facility], ) Body height 64 [in_i] 64 [in_i] [facility], [facility] 5'4" Diastolic blood pressure 76 mm[Hg] 76 mm[Hg] [facility] ([facility]) Systolic blood pressure 132 mm[Hg] 132 mm[Hg] [facility]) Diastolic blood pressure 84 mm[Hg] 84 mm[Hg] eCW1 ([facility]) Systolic blood pressure 140 mm[Hg] 140 mm[Hg] e CW1 ([facility]) Body temperature 97.8 [degF] 97.8 [degF] eCW1 ( [facility]) Respiratory rate 18 /min 18 /min eCW1 ([facility]) Heart rate 62 /min 62 /min eCW1 ([facility]) Body mass index (BMI) [Ratio] 27.12 kg/m2 27.12 kg/m2 eCW1 ([facility]) Body height 64 [in_i] 64 [in_i] eCW1 ([facility]) Body weight 158 [lb_av] 158 [lb_av] eCW1 ([facility]) Body weight 71.272 kg 71.272 kg [facility] ([facility], ) Body mass index (BMI) [Ratio] 27.0 kg/m2 27.0 k g/m2 [facility] ([facility]) Body weight 157.12 [lb_av] 157.12 [lb_av] MEDEN T ([facility], ) Body height 64 [in_i] 64 [in_i] [facility] ([facility], ) 5'4" Diastolic blood pressure 59 mm[Hg] 59 mm[Hg] [facility] ([facility], ) Systolic blood pressure 134 mm[Hg] 134 mm[Hg] [facility] ) Body weight 70.932 kg 70.932 kg [facility] ([facility]) Body mass index (BMI) [Ratio] 26.8 kg/m2 26.8 k g/m2 [facility] ([facility], ) Body weight 156.38 [lb_av] 156.38 [lb_av] MED[facility] T ([facility], ) Body height 64 [in_i] 64 [in_i] MEDENT ([facility], ) 5'4" Diastolic blood pressure 69 mm[Hg] 69 mm[Hg] MED[facility] ([facility], ) Systolic blood pressure 138 mm[Hg] 138 mm[Hg] M EDENT ([facility], ) Diastolic blood pressure 74 mm[Hg] 74 mm[Hg] eCW1 ([facility]) Systolic blood pressure 136 mm[Hg] 136 mm[Hg] e CW1 ([facility]) Body temperature 96.4 [degF] 96.4 [degF] eCW1 ( [facility]) Respiratory rate 18 /min 18 /min eCW1 ([facility]) Heart rate 64 /min 64 /min eCW1 ([facility]) Body mass index (BMI) [Ratio] 26.95 kg/m2 26.95 kg/m2 W1 ([facility]) Body height 64 [in_us] 64 [in_us] eCW1 ([facility]) Body weight Measured 157 [lb_av] 157 [lb_av] eC W1 ([facility]) Diastolic blood pressure 70 mm[Hg] 70 mm[Hg] eCW1 ([facility]) Systolic blood pressure 152 mm[Hg] 152 mm[Hg] e CW1 ([facility]) Body mass index (BMI) [Ratio] 27.05 kg/m2 27.05 kg/m2 W1 ([facility]) Body height 64 [in_us] 64 [in_us] eCW1 ([facility]) Body weight Measured 157.6 [lb_av] 157.6 [lb_av ] eCW1 ([facility]) Diastolic blood pressure 80 mm[Hg] 80 mm[Hg] eCW1 ([facility]) Systolic blood pressure 138 mm[Hg] 138 mm[Hg] e CW1 ([facility]) Body temperature 97.3 [degF] 97.3 [degF] eCW1 ( [facility]) Respiratory rate 18 /min 18 /min eCW1 ([facility]) Heart rate 82 /min 82 /min eCW1 ([facility]) Body mass index (BMI) [Ratio] 26.60 kg/m2 26.60 kg/m2 eCW1 ([facility]) Body height 64 [in_us] 64 [in_us] eCW1 ([facility]) Body weight Measured 155 [lb_av] 155 [lb_av] eC W1 ([facility]) Diastolic blood pressure 72 mm[Hg] 72 mm[Hg] eCW1 ([facility]) Systolic blood pressure 118 mm[Hg] 118 mm[Hg] e CW1 ([facility]) Body temperature 98.3 [degF] 98.3 [degF] eCW1 ( [facility]) Respiratory rate 18 /min 18 /min eCW1 ([facility]) Heart rate 59 /min 59 /min eCW1 ([facility]) Body mass index (BMI) [Ratio] 27.05 kg/m2 27.05 kg/m2 eCW1 ([facility]) Body height 64 [in_us] 64 [in_us] eCW1 ([facility]) Body weight Measured 157.6 [lb_av] 157.6 [lb_av ] eCW1 ([facility]) Body weight 71.215 kg 71.215 kg [facility] ([facility], ) Body mass index (BMI) [Ratio] 26.9 kg/m2 26.9 k g/m2 MEDENT ([facility], ) Body weight 157.00 [lb_av] 157.00 [lb_av] MEDEN T ([facility], ) Body height 64 [in_i] 64 [in_i] [facility] ([facility], ) 5'4" Diastolic blood pressure 57 mm[Hg] 57 mm[Hg] MEDENT ([facility], ) Systolic blood pressure 157 mm[Hg] 157 mm[Hg] M EDENT ([facility], ) Diastolic blood pressure 82 mm[Hg] 82 mm[Hg] eCW1 ([facility]) Systolic blood pressure 146 mm[Hg] 146 mm[Hg] e CW1 ([facility]) Body temperature 97.5 [degF] 97.5 [degF] eCW1 ( [facility]) Respiratory rate 18 /min 18 /min eCW1 ([facility]) Heart rate 60 /min 60 /min eCW1 ([facility]) Body mass index (BMI) [Ratio] 27.25 kg/m2 27.25 kg/m2 eCW1 ([facility]) Body height 64 [in_us] 64 [in_us] eCW1 ([facility]) Body weight Measured 158.8 [lb_av] 158.8 [lb_av ] eCW1 ([facility]) Patient Treatment Plan of Care Planned Activity Planned Date Details Description Data Source (s) 200 ACTUAT Albuterol 0.09 MG/ACTUAT Metered Dose Inhal er [ProAir] 02/07/2020 12:00:00 AM EDT eCW1 ([facility]) Amoxicillin 875 MG Oral Tablet 12/07/2019 12:00:00 AM EDT eCW1 ([facility]) benzonatate 100 MG Oral Capsule 12/07/2019 12:00:00 AM EDT eCW1 ([facility])
--- OUTSIDE RECORDS SUMMARY | 2020-10-04 12:33 | CCD ---
Author Author [facility] Organization [facility] Address Unknown Phone Unavailable Care Team Providers Care Right Of Way Agent Name Role Phone JazmineKarlo Unavailable PROBLEMS Type Condition ICD9-CM Code [id number] Code Onset Dates Condition S tatus SNOMED Code Notes Problem PAD (peripheral artery disease) I73.9 Active 734488529 Problem History of angioplasty of peripheral vessel Z98.62 Active 842984461 Problem Spinal stenosis, lumbosacral region M48.07 Acti ve 10102657 Problem Chronic kidney disease, stage 3 (moderate) N18.3 Active 076307507 Problem Gastro-esophageal reflux disease without esophagitis K21.9 Active 017053545 Problem Nonrheumatic aortic valve disorder, 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 Active 9253954 on echo 02/01; due for repeat 02/03 Problem 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 Active 519048260 Problem Allergic rhinitis, unspecified J30.9 Active 6 5126769 Problem Disorder of carbohydrate metabolism, 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 Active 79317353 Problem Nontoxic single thyroid nodule E04.1 Active 1 93844096 Problem Hypothyroidism, unspecified E03.9 Active 4093 0008 Problem Other iron deficiency anemia D50.8 Active 875 60385 Problem Mixed hyperlipidemia E78.2 Active 656249081 Problem Slow transit constipation K59.01 Active 032620 07 Problem Restless legs syndrome G25.81 Active 14002795 Problem Atherosclerosis with claudication of extremity I70 .219 Active 521857003 Problem Paroxysmal atrial fibrillation I48.0 Active 2 97897880 Problem Hypertensive heart disease without heart failure I 11.9 Active 31988602 Problem Foot ulcer, left, limited to breakdown of skin L97 .521 Active 28920065 Problem Medicare annual wellness visit, subsequent Z00.00 Active 716604401 ALLERGIES Allergen (clinical drug ingredient) Drug/Non Drug Allergy do cumented on EMR Reaction Allergy Type Onset Date Status spironolactone Aldactone([facility] Code:[address]-04) cramps in legs /nausea Drug Allergy Active Zyban Hives Drug Allergy Active ENCOUNTERS from 1940 to 2020-08-07 Encounter Location Date Provider Diagnosis [facility] [address] [place] [address] Jul, Mitesh Lucero IMMUNIZATIONS Vaccine Route Administration Date Status Pneumococcal Adult 0.5mL (Pneumovax 23) IM Intramuscular Aug 21, 2016 Administered Influenza (High Dose 65 & up) [...] Intramuscular Jul 23, 2016 A dministered Influenza (6mo & up) Fluzone IM Intramuscular Jul 08, 2010 Ad ministered Zoster 50mcg/0.5mL (Shingrix) Unknown May 20, 2018 Ad ministered Zoster 50mcg/0.5mL (Shingrix) Unknown January 30, 2018 Ad ministered Zoster 0.65mL (Zostavax) Unknown Sep 20, 2012 Adminis tered Pneumococcal 0.5mL (Prevnar 13) IM Intramuscular Jul [...] some Language: Question Answer Notes Languages spoken: Pakistani Methodist: Question Answer Notes Methodist 21 Yazidism Alcohol Screening: Question Answer Notes Did you [...] PAD-- s/p left SFA balloon a ngioplasty [facility], complicated by retroperitoneal hematoma, needed IVF/admission; repeat PRODUCT LINE MANAGER/stent left SFA 03/05, left SFA angioplasty/stent 09/04; 01/06: 80% in-stent stenosis left SFA stent Medical History parox at [facility]-- 03/05, convert ed in ER; follows [facility], long-term anticoagulation advised; admitted [facility] for at [facility] RVR by [facility] 10/07 Medical History chronic GI blood loss, admit [facility] 04/08 with GHgb 4.x, neg EGD/colo [...] retroperitoneal hematoma, needed IVF/admission 09/03 Surgical History PRODUCT LINE MANAGER/stent left SFA [facility]/McGurrin; stent , 09/04, 06/08 [...] Details Provider Name:Karlo Lucero, 2020-07 02:00:00 PM, [address], [place], [address], Provider Name:Chitra Aries, 2021-01-29 10:30:00 AM, [address] [place], [address], Insurance Providers Payer Name Payer Address Payer Phone Insured Name Patient Relati onship to Insured Coverage Start Date Coverage End Date [facility] [address] [facility] [id number] [id number] JOHN SEXTON self MEDICARE Part A and B [address] [facility] [phone] [phone] JOHN SEXTON
--- OUTSIDE RECORDS SUMMARY | 2020-10-04 12:33 | CCD ---
Author Author [facility] Organization [facility] Address Unknown Phone Unavailable Care Team Providers Care Casting Room Operator Name Role Phone JazmineKarlo Unavailable PROBLEMS Type Condition ICD9-CM Code [id number] Code Onset Dates Condition S tatus SNOMED Code Notes Problem PAD (peripheral artery disease) I73.9 Active 208003598 Problem History of angioplasty of peripheral vessel Z98.62 Active 717710265 Problem Spinal stenosis, lumbosacral region M48.07 Acti ve 71900649 Problem Chronic kidney disease, stage 3 (moderate) N18.3 Active 538762434 Problem Gastro-esophageal reflux disease without esophagitis K21.9 Active 137553352 Problem Nonrheumatic aortic valve disorder, 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 Active 2063962 on echo 02/01; due for repeat 02/03 Problem 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 Active 925939746 Problem Allergic rhinitis, unspecified J30.9 Active 6 9870476 Problem Disorder of carbohydrate metabolism, 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 Active 38114046 Problem Nontoxic single thyroid nodule E04.1 Active 1 98474256 Problem Hypothyroidism, unspecified E03.9 Active 4093 0008 Problem Other iron deficiency anemia D50.8 Active 875 59726 Problem Mixed hyperlipidemia E78.2 Active 075182252 Problem Slow transit constipation K59.01 Active 996586 07 Problem Restless legs syndrome G25.81 Active 32249282 Problem Atherosclerosis with claudication of extremity I70 .219 Active 091309906 Problem Paroxysmal atrial fibrillation I48.0 Active 2 08298448 Problem Hypertensive heart disease without heart failure I 11.9 Active 33390199 Problem Foot ulcer, left, limited to breakdown of skin L97 .521 Active 66728544 Problem Medicare annual wellness visit, subsequent Z00.00 Active 203453719 ALLERGIES Allergen (clinical drug ingredient) Drug/Non Drug Allergy do cumented on EMR Reaction Allergy Type Onset Date Status spironolactone Aldactone([facility] Code:[address]-31) cramps in legs /nausea Drug Allergy Active Coreyybosvaldo Hives Drug Allergy Active ENCOUNTERS from 1940 to 2020-07-17 Encounter Location Date Provider Diagnosis [facility] [address] [place] [address] 15 Jun, 2020 Mitesh Lucero Chronic diarrhea K52.9 and Other iron deficiency anemia D50.8 IMMUNIZATIONS Vaccine Route Administration Date Status Zoster [...] some Language: Question Answer Notes Languages spoken: Wallisian Rastafarian: Question Answer Notes Rastafarian 21 Orthodoxy Alcohol Screening: Question Answer Notes Did you [...] FOR REFERRAL No Information VITAL SIGNS Weight 151 lbs Jun, Height 64 in Jun, BMI 25.92 kg/m2 Jun, Heart Rate 55 /min Jun, Respiratory Rate 18 /min Jun, Temperature 96.3 degrees Fahrenheit Jun, Oximetry 100 Jun, Blood pressure systolic 144 mm Hg Jun, Blood pressure diastolic 74 mm Hg Jun, MEDICATIONS Medication SIG (Take, Route, Frequency, Duration) Start Date En d Date Status Ranitidine HCl 300MG 1 tablet orally Daily at bedtime for 90 Not-Taking Levothyroxine Sodium 100 MCG 1 tablet every morning on an empty stomach Orally once a day for 90 days Active Benzonatate 100 MG 1 capsule as needed Orally t hree times daily as needed for 10 day(s) Nov, Not-Taking ProAir HFA 108 (90 Base) MCG/ACT 2 puff2 as needed Inh alation four times daily as needed for 30 Days January, Not-Taking ICaps AREDS Formula OTC 1 tablets p.o. [...] Once a day for 30 day(s) Active Aspir-81 81 MG 1 tablet Orally Once a day Not-Taking Zocor 40MG 1 tablet every evening Orally Once a day for 90 Active Magnesium 200 MG 2 tablets with a meal Orally Once a day Active Lisinopril 20 MG 1 tablet Orally Once a day Active Dofetilide 250 MCG 2 capsules Orally Twice a day Active Zyrtec Allergy 10 mg 1 tablet p.o. Once a day Active Vitamin D3 1,000 units orally Daily Act barrington Iron (Ferrous Sulfate) 325 MG 1 tablet Orally Daily Active Baclofen 10 mg two tablets p.o. daily HS per pt Active Aspirin 81 MG 1 tablet Orally Once a day for 30 day(s) Active Sucralfate 1 GM/10ML 10 ml on an empty stomach Orally Twice a day for 30 day(s) Not-Taking Calcium 600 + D 600-400 MG-UNIT 1 tablet Orally Twice a day Not-Taking PROCEDURES No Information RESULTS Component Value Reference Range CBC - Complete Blood Count Reviewed date:07/04/2020 17:31:26 Interpretation: Performing Lab:[facility] LABORATORY [address] [address] , ,[place] [address] WHITE BLOOD COUNT 3.6 4.0-10.0 RED BLOOD COUNT 2.86 4.00-5.40 HEMOGLOBIN 9.1 12.0-15.5 HEMATOCRIT 29.2 36.0-47.0 MEAN CORPUSCULAR VOLUME 102.1 80.0-96.0 MEAN CORPUSCULAR HEMOGLOBIN 31.8 27.0-33.0 MEAN CORPUSCULAR HGB CONC 31.2 32.0-36.5 RED CELL DISTRIBUTION WIDTH 14.0 11.5-14.5 PLATELET COUNT, AUTOMATED 218 150-450 FERRITIN Reviewed date:07/04/2020 17:31:26 Interpretation: Performing Lab:[facility] LABORATORY [address] [address] , ,[place] [address] FERRITIN 23 8-252 Basic Metabolic Profile (BMP) Reviewed date:07/04/2020 17:31:26 Interpretation: Performing Lab:[facility] LABORATORY [address] [address] , ,[place] [address] GLUCOSE, FASTING 94 70-100 BLOOD UREA NITROGEN 34 7-18 CREATININE FOR GFR 1.42 0.55-1.30 GLOMERULAR FILTRATION RATE 38.2 >39 SODIUM LEVEL 141 136-145 POTASSIUM SERUM 4.4 3.5-5.1 CHLORIDE LEVEL 106 98-107 CARBON DIOXIDE LEVEL 28 21-32 CALCIUM LEVEL 8.9 8.8-10.2 Reticulocyte Count Sysmex Reviewed date:07/04/2020 17:31:26 Interpretation: Performing Lab:[facility] LABORATORY [address] [address] , ,[place] [address] RETICULOCYTE % 3.4 0.5-1.5 TOTAL IRON BINDING CAPACIT Reviewed date:07/04/2020 17:31:26 Interpretation: Performing Lab:[facility] LABORATORY [address] [address] , ,[place] [address] IRON (FE) 373 50-170 TOTAL IRON BINDING CAPACITY 444 250-450 PERCENT SATURATION 84.0 13.2-45.0 MAGNESIUM LEVEL Reviewed date:07/04/2020 17:31:26 Interpretation: Performing Lab:[facility] LABORATORY [address] [address] , ,[place] [address] MAGNESIUM LEVEL 2.6 1.8-2.4 IBD SEROLOGY PANEL Reviewed date:07/12/2020 11:13:24 Interpretation: Performing Lab:[facility] [address] [facility] [address] , ,[place] [address] REASON FOR VISIT f/u per [phone] MEDICAL (GENERAL) HISTORY Type Description Date Medical [...] 44 mm, mild As, ef 65%; echo 1/18: no change prior Medical History Thyroid nodule [...] complicated by retroperitoneal hematoma, needed IVF/admission; repeat TAPROOM ATTENDANT/stent left SFA 03/05, left SFA angioplasty/stent 09/04; 01/06: 80% in-stent stenosis left SFA stent Medical History parox at [facility]-- 03/05, convert ed in ER; follows [facility], long-term anticoagulation advised; admitted [facility] for at [facility] RVR by [facility] 10/07 Medical History chronic GI blood loss, admit [facility] 04/08 with GHgb 4.x, neg EGD/colo 11/09, [...] retroperitoneal hematoma, needed IVF/admission 09/03 Surgical History TAPROOM ATTENDANT/stent left SFA [facility]/McGurrin; stent , 09/04, 06/08 [...] STATUS No Information ASSESSMENTS Encounter Date Diagnosis Notes Jun, Chronic diarrhea (ICD-10 - K52.9) Jun, Other iron deficiency anemia (ICD-10 - D 50.8) PLAN OF TREATMENT Treatment Notes Test Name Order Date GASTROINTESTINAL GI PANEL (GIPANEL) 2020-07-17 Next Appt Details prn Reason: Provider Name:Karlo Lucero, 2020-07 02:00:00 PM, [address], [place], [address], Provider Name:Chitra Aries, 2021-01-29 10:30:00 AM, [address] [place], [address], Insurance Providers Payer Name Payer Address Payer Phone Insured Name Patient Relati onship to Insured Coverage Start Date Coverage End Date [facility] [address] [facility] [id number] JOHN SEXTON self MEDICARE Part A and B [address] [facility] [phone] JOHN SEXTON self
--- OUTSIDE RECORDS SUMMARY | 2020-10-04 12:33 | CCD ---
Author Author [facility] Organization [facility] Address Unknown Phone Unavailable Care Team Providers Care Snubber Name Role Phone JazmineKarlo Unavailable PROBLEMS Type Condition ICD9-CM Code [id number] Code Onset Dates Condition S tatus SNOMED Code Notes Problem PAD (peripheral artery disease) I73.9 Active 973198321 Problem History of angioplasty of peripheral vessel Z98.62 Active 366017852 Problem Spinal stenosis, lumbosacral region M48.07 Acti ve 72349048 Problem Chronic kidney disease, stage 3 (moderate) N18.3 Active 195812973 Problem Gastro-esophageal reflux disease without esophagitis K21.9 Active 644043010 Problem Nonrheumatic aortic valve disorder, 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 Active 4788211 on echo 02/01; due for repeat 02/03 Problem 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 Active 866960983 Problem Allergic rhinitis, unspecified J30.9 Active 6 9062199 Problem Disorder of carbohydrate metabolism, 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 Active 40098454 Problem Nontoxic single thyroid nodule E04.1 Active 1 14940138 Problem Hypothyroidism, unspecified E03.9 Active 4093 0008 Problem Other iron deficiency anemia D50.8 Active 875 24073 Problem Mixed hyperlipidemia E78.2 Active 593272046 Problem Slow transit constipation K59.01 Active 500065 07 Problem Restless legs syndrome G25.81 Active 61379332 Problem Atherosclerosis with claudication of extremity I70 .219 Active 866127605 Problem Paroxysmal atrial fibrillation I48.0 Active 2 49848299 Problem Hypertensive heart disease without heart failure I 11.9 Active 46014193 Problem Foot ulcer, left, limited to breakdown of skin L97 .521 Active 24457820 Problem Medicare annual wellness visit, subsequent Z00.00 Active 992192012 ALLERGIES Allergen (clinical drug ingredient) Drug/Non Drug Allergy do cumented on EMR Reaction Allergy Type Onset Date Status spironolactone Aldactone([facility] Code:[address]-23) cramps in legs /nausea Drug Allergy Active Zyban Hives Drug Allergy Active ENCOUNTERS from 1940 to 2020-08-08 Encounter Location Date Provider Diagnosis [facility] [address] [place] [address] Jul, Mitesh Lucero IMMUNIZATIONS Vaccine Route Administration Date Status Influenza [...] some Language: Question Answer Notes Languages spoken: Congolese Christian: Question Answer Notes Christian 21 Anglican Alcohol Screening: Question Answer Notes Did you [...] Eliquis 5 MG 8 oz Orally bid Not-Jmi ing AmLODIPine Besylate 5 MG 1 tablet [...] Information RESULTS No Results REASON FOR VISIT type and crossmatch MEDICAL (GENERAL) HISTORY Type Description Date Medical [...] s/p left SFA balloon a ngioplasty [facility], complicated by retroperitoneal hematoma, needed IVF/admission; repeat FINAL ASSEMBLY INSPECTOR/stent left SFA 03/05, left SFA angioplasty/stent 09/04; 01/06: 80% in-stent stenosis left SFA stent Medical History parox at [facility]-- 03/05, convert ed in ER; follows [facility], long-term anticoagulation advised; admitted [facility] for at [facility] RVR by [facility] 10/07 Medical History chronic GI blood loss, admit [facility] 04/08 with GHgb 4.x, neg EGD/colo 11/09, [...] retroperitoneal hematoma, needed IVF/admission 09/03 Surgical History FINAL ASSEMBLY INSPECTOR/stent left SFA [facility]/McGurrin; stent , 09/04, 06/08 [...] Details Provider Name:Karlo Jazmine, 2020-07 02:00:00 PM, [address], [place], [address], Provider Name:Chitra Chris, 2021-01-29 10:30:00 AM, [address] [place], [address], Insurance Providers Payer Name Payer Address Payer Phone Insured Name Patient Relati onship to Insured Coverage Start Date Coverage End Date MEDICARE Part A and B [address] [facility] [id number] JOHN SEXTON [facility] [address] [facility] [id number] JOHN SEXTON
[2020-10-04] MEDS ORDERED: propofoL 200 MG/20 ML VIAL As Ordered ONE ×2 (13:24→14:25)
[2020-10-04] MEDS ORDERED: fentaNYL 100 MCG/2 ML INJECTION (J3010) As Ordered ONE (13:24)
[2020-10-04] MEDS ORDERED: LIDOCAINE 2% 100MG/5ML SDV (FOR ANES.) As Ordered ONE (13:24)
[2020-10-04] MEDS ORDERED: GLYCOPYRROLATE INJ 0.2 MG/ML 2 ML VIAL As Ordered ONE (13:24)
[2020-10-04] MEDS ORDERED: GLUCAGON INJ 1MG VIAL As Ordered ONE ×2 (14:07→14:08)
--- NOTE | 2020-10-04 14:54 | ROOR ---
Patient Name: Rehan Spangler Procedure Date: 10/04/2020 1:59 PM Date of : 1940 Age: 79 Room: [facility] Gender: Female Note Status: Finalized Procedure: EGD/Small bowel push enteroscopy Indications: Active gastrointestinal bleeding seen in proximal small bowel/probably duodenum(Abnormal video capsule endoscopy) Providers: Lui HARDIN MD Referring MD: Karlo Lucero MD Requesting Provider: Medicines: Monitored Anesthesia Care Complications: No immediate complications. Procedure: Pre-Anesthesia Assessment: - The heart rate, respiratory rate, oxygen saturations, blood pressure, adequacy of pulmonary ventilation, and response to care were monitored throughout the procedure. The Endoscope was introduced through the mouth, and advanced to the fourth part of duodenum. The upper GI endoscopy was accomplished without difficulty. The patient tolerated the procedure well. Findings: Two diminutive angioectasias without bleeding were found in the third portion of the duodenum. Coagulation for bleeding prevention using argon plasma at 0.8 liters/minute and 20 navas was successful. The exam was otherwise without abnormality. Impression: - Two tiny non-bleeding angioectasias in the third portion of duodenum. Treated with argon plasma coagulation (APC). - The examination was otherwise normal. - No specimens collected. Recommendation: - Resume Eliquis (apixaban) at prior dose in 2 days. (on 10/06/2020) - Observe patient's clinical course. Procedure Code(s): --- Professional --- 41766, Esophagogastroduodenoscopy, flexible, transoral; with control of bleeding, any method Diagnosis Code(s): --- Professional --- R93.3, Abnormal findings on diagnostic imaging of other parts of digestive tract K92.2, Gastrointestinal hemorrhage, unspecified K31.819, Angiodysplasia of stomach and duodenum without bleeding CPT copyright 2019 [employer]. All rights reserved. The codes documented in this report are preliminary and upon residential advisor review may be revised to meet current compliance requirements. Lui Hardin MD Lui HARDIN MD 10/04/2020 2:54:17 PM Electronically signed by Lui HARDIN MD Number of Addenda: 0 Note Initiated On: 10/04/2020 1:59 PM Estimated Blood Loss: Estimated blood loss: none.
[2020-10-04 15:15] VITALS: BP 137/52
== END 2020-10-04 15:17 | disposition home or self-care (01) ==
LOC: M OPP 12:28
PROVIDERS: ATTEND Internal Medicine Gastroenterology
DX: R93.3 Abnormal findings on diagnostic imaging of other parts of digestive tract (principal); K92.2 Gastrointestinal hemorrhage, unspecified; K31.819 Angiodysplasia of stomach and duodenum without bleeding; I10 Essential (primary) hypertension; E03.9 Hypothyroidism, unspecified; K21.9 Gastro-esophageal reflux disease without esophagitis; R12 Heartburn; I34.1 Nonrheumatic mitral (valve) prolapse; F41.9 Anxiety disorder, unspecified; Z86.73 Personal history of transient ischemic attack (TIA), and cerebral infarction without residual deficits; Z87.891 Personal history of nicotine dependence; Z85.828 Personal history of other malignant neoplasm of skin; Z92.21 Personal history of antineoplastic chemotherapy; Z88.8 Allergy status to other drugs, medicaments and biological substances; Z79.01 Long term (current) use of anticoagulants; Z79.82 Long term (current) use of aspirin; Z79.899 Other long term (current) drug therapy; Z80.8 Family history of malignant neoplasm of other organs or systems
CPT/HCPCS: 43255; J1610; J3010

== ENCOUNTER → 2020-10-30 | Outpatient (CLI) | payer MEDICARE, BC, OTHER ==
[~2020-10-30] MED LIST changes: -LISI40TA PO; +LISI40TA4 PO; -NS 1,000 ML IV ONE
[2020-10-30 16:10] LABS: HEMATOCRIT 30.1 % (36.0-47.0); HEMOGLOBIN 9.3 g/dl (12.0-15.5); MEAN CORPUSCULAR HEMOGLOBIN 31.5 pg (27.0-33.0); MEAN CORPUSCULAR HGB CONC 30.9 g/dl (32.0-36.5); PLATELET COUNT, AUTOMATED 210 10^3/uL (150-450); RED BLOOD COUNT 2.95 10^6/uL (4.00-5.40); WHITE BLOOD COUNT 4.3 10^3/uL (4.0-10.0)
== END ==
LOC: M WUC 11:43
PROVIDERS: ATTEND Family Medicine
DX: D50.8 Other iron deficiency anemias (principal)

== ENCOUNTER → 2020-11-20 | Outpatient (CLI) | payer MEDICARE, BC, OTHER ==
[~2020-11-20] MED LIST changes: +VITMTA PO
--- NOTE | 2020-11-27 08:58 | REP ---
INDICATION: ATHSCL [place] TRIBE ARTERIES OF EXTRM W/ CLAUDICATION COMPARISON: None. TECHNIQUE: Real time mccord scale and color Doppler evaluation of the bilateral lower extremity arterial vasculature using linear high frequency transducer. FINDINGS: Bilateral common femoral arteries demonstrate increased velocities and biphasic wave patterns. Right leg demonstrates monophasic wave patterns and high velocities with areas of mixed flow direction and luminal narrowing suggesting areas of less than 50% stenosis. The anterior tibial artery is not visualized and may represent occlusion. Right FLORIAN: 0.75. Left leg demonstrates monophasic wave patterns and high velocities with areas of mixed flow direction and luminal narrowing suggesting areas of less than 50% stenosis. The stent in the chilkat distal superficial femoral artery appears patent. Left FLORIAN: 0.75. Peak systolic velocities (cm/sec) Common femoral artery: Right 226; Left 210 Profunda femoris: Right 223; Left 76 SFA (proximal): Right 329; Left 151 SFA (mid): Right 218; Left 188 SFA (distal): Right 178; Left 129 Popliteal artery: Right 113; Left 110 FELIX (prox.): Right possibly occluded; Left 54 Tibioperoneal trunk: Right 95; Left 87 BAND TIER (prox.): Right 104; Left 88 BAND TIER (distal): Right 61; Left 52 FELIX (distal): Right possibly occluded; Left 34 IMPRESSION: 1. Atheromatous changes with areas of narrowing and presumed mild stenosis but no areas of stenosis greater than 50% by sonographic evaluation. 2. Stent in the left superficial femoral artery appears patent. 3. Possible occlusion of the right anterior tibial artery. <Electronically signed by Oracio Stephens > 11/27/20 0809
== END ==
LOC: M RAD 11:20
PROVIDERS: ATTEND Physician Assistant
DX: I70.213 Atherosclerosis of native arteries of extremities with intermittent claudication, bilateral legs (principal); Z95.828 Presence of other vascular implants and grafts

== ENCOUNTER → 2020-12-18 | Outpatient (CLI) | payer MEDICARE, BC, OTHER ==
[2020-12-18 19:58] LABS: BASO # 0.1 10^3/uL (0.0-0.2); BASO % 1.1 % (0.0-1.0); EOS # 0.1 10^3/uL (0.0-0.5); EOS % 1.8 % (0.0-3.0); HEMATOCRIT 30.6 % (36.0-47.0); HEMOGLOBIN 9.5 g/dl (12.0-15.5); LYMPH # 1.2 10^3/uL (1.5-5.0); MEAN CORPUSCULAR HEMOGLOBIN 31.8 pg (27.0-33.0); MEAN CORPUSCULAR VOLUME 102.3 fl (80.0-96.0); MONO # 0.4 10^3/uL (0.0-0.8); MONO % 9.1 % (2.0-8.0); NEUTROPHILS # 2.7 10^3/uL (1.5-8.5); NEUTROPHILS % 60.8 % (36.0-66.0); PLATELET COUNT, AUTOMATED 224 10^3/uL (150-450); RED BLOOD COUNT 2.99 10^6/uL (4.00-5.40); WHITE BLOOD COUNT 4.4 10^3/uL (4.0-10.0)
[2020-12-18 20:05] LABS: ALBUMIN 4.3 GM/DL (3.2-5.2); ALT/SGPT 43 U/L (12-78); BILIRUBIN,TOTAL 0.3 MG/DL (0.2-1.0); BLOOD UREA NITROGEN 29 MG/DL (7-18); CALCIUM LEVEL 8.6 MG/DL (8.8-10.2); CARBON DIOXIDE LEVEL 29 MEQ/L (21-32); CHLORIDE LEVEL 108 MEQ/L (98-107); CREATININE FOR GFR 1.26 MG/DL (0.55-1.30); GLOMERULAR FILTRATION RATE 43.8 (>39); GLUCOSE, FASTING 101 MG/DL (70-100); LDH LACTATE DEHYDROGENASE 229 U/L (84-246); POTASSIUM SERUM 4.4 MEQ/L (3.5-5.1); SODIUM LEVEL 140 MEQ/L (136-145); TOTAL PROTEIN 7.1 GM/DL (6.4-8.2)
[2020-12-20 12:11] LABS: ALBUMIN % 64.8 % (55.8-66.1); ALPHA-1-GLOBULIN % 4.6 % (2.9-4.9); ALPHA-1-GLOBULINS 0.33 GM/DL (0.17-0.41); ALPHA-2-GLOBULINS % 11.3 % (7.1-11.8); BETA-1-GLOBULINS 0.43 GM/DL (0.28-0.60); BETA-1-GLOBULINS % 6.1 % (4.7-7.2); BETA-2-GLOBULINS 0.26 GM/DL (0.19-0.55); BETA-2-GLOBULINS % 3.7 % (3.2-6.5); GAMMA GLOBULIN % 9.5 % (11.1-18.8); GAMMA GLOBULINS 0.67 GM/DL (0.65-1.58)
== END ==
LOC: M WUC 15:10
PROVIDERS: ATTEND Internal Medicine Hematology & Oncology
DX: D64.9 Anemia, unspecified (principal)

== ENCOUNTER → 2020-12-25 | Outpatient (REF) | payer MEDICARE, OTHER | LOC: M LAB REF 12:20 | PROVIDERS: ATTEND Internal Medicine Hematology & Oncology | DX: D50.8 Other iron deficiency anemias (principal) ==

== ENCOUNTER → 2021-01-29 | Outpatient (CLI) | payer MEDICARE, BC ==
[~2021-01-29] MED LIST changes: +COVI100V IM
--- NOTE | 2021-01-29 12:44 | REPMRS ---
Patient History The patient states she had a clinical breast exam in January 2021. No known family history of cancer. Took estrogen for 3 years 3 months. moderna vaccine #1 11/15/20 left arm #2 12/10/20 left arm. Patient states no breast complaints today. Patient has signed MRS History Sheet. Digital Woman Screen Mammo: January 29, 2021 - Exam #: [id number] Bilateral CC and MLO view(s) were taken. Technologist: RT Sharyn Prior study comparison: January 29, 2020, bilateral digital woman screen mammo performed at [facility]. January 26, 2019, bilateral digital woman screen mammo performed at [facility]. FINDINGS: There are scattered fibroglandular densities. Screening. Digital screening (2D) mammography was performed bilaterally in the CC and MLO projections. Additionally, breast tomosynthesis (3D mammography) was performed bilaterally in the CC and MLO projections. Todays exam was compared to the prior exams. By history, the patient has no complaints of a palpable breast abnormality or other significant breast complaints. The breasts are unchanged in size and shape. There are no rodrigo-soft tissue densities or spiculated masses. There is no internal architectural distortion. Once again, stable benign appearing calcifications are seen.There are no suspicious rodrigo-calcific clusters. Skin thickening or nipple retraction is not present. IMPRESSION: BI-RADS Category 2- Benign Findings. There is no evidence of malignant alteration of the breasts. Followup examination recommended in one year. The Volpara volumetric breast density category is B, there are scattered areas of fibroglandular density. This mammogram [facility],an FDA approved computer aided detection system for mammography. The lifetime Tyrer-Cuzick score is 3.3 % Negative x-ray reports should not delay surgical consultation if a dominant or clinically suspicious mass is present. Not all breast cancers can be identified by mammography. Therefore, we recommend that you continue to perform regular breast self-examination and physical examination and then promptly contact your physician of any concerns or changes. Adenosis and dense breasts may obscure an underlying neoplasm. Assessment: BI-RADS/ACR category 2 mammogram. Benign Findings. Recommendation Routine screening mammogram of both breasts in 1 year. Electronically Signed By: Jude Bailey, 01/29/21 [id number]
== END ==
LOC: M WHC 10:47
PROVIDERS: ATTEND Nurse Practitioner Women's Health
DX: Z01.419 Encounter for gynecological examination (general) (routine) without abnormal findings (principal); Z12.31 Encounter for screening mammogram for malignant neoplasm of breast; Z92.23 Personal history of estrogen therapy; R92.1 Mammographic calcification found on diagnostic imaging of breast
CPT/HCPCS: 77063; 77067; G0101

== ENCOUNTER → 2021-03-12 | Outpatient (CLI) | payer MEDICARE, BC, OTHER ==
[~2021-03-12] MED LIST changes: +LIDOCAINE 1% MDV 20ML VIAL As Ordered ONE
[2021-03-12 09:03] LABS: BASO % 0.8 % (0.0-1.0); EOS # 0.1 10^3/uL (0.0-0.5); EOS % 2.5 % (0.0-3.0); HEMATOCRIT 32.8 % (36.0-47.0); HEMOGLOBIN 10.4 g/dl (12.0-15.5); LYMPH # 1.1 10^3/uL (1.5-5.0); LYMPH % 30.7 % (24.0-44.0); MEAN CORPUSCULAR HEMOGLOBIN 31.3 pg (27.0-33.0); MEAN CORPUSCULAR HGB CONC 31.7 g/dl (32.0-36.5); MEAN CORPUSCULAR VOLUME 98.8 fl (80.0-96.0); MONO # 0.5 10^3/uL (0.0-0.8); MONO % 13.8 % (2.0-8.0); NEUTROPHILS # 1.8 10^3/uL (1.5-8.5); NEUTROPHILS % 51.6 % (36.0-66.0); PLATELET COUNT, AUTOMATED 165 10^3/uL (150-450); RED BLOOD COUNT 3.32 10^6/uL (4.00-5.40); WHITE BLOOD COUNT 3.6 10^3/uL (4.0-10.0)
[2021-03-12 10:40] VITALS: BP 184/72
--- NOTE | 2021-03-12 16:29 | REP ---
INDICATION: BONE MARROW BIO. COMPARISON: None. TECHNIQUE: The procedure was performed under the direct supervision of Dr. Almanza. The risks and benefits of the procedure were explained to the patient and informed consent was obtained. The right iliac crest was localized using CT guidance. The skin was prepped and draped in a sterile fashion. 1% lidocaine was used as a local anesthetic. Using CT guidance an 11 gauge bone biopsy system was inserted and 7 cc of marrow fluid and 1 core sample were obtained. The patient tolerated the procedure well and there were no immediate complications. After the appropriate amount to monitor convalescence the patient was discharged from the department. FINDINGS: None IMPRESSION: CT-guided right iliac bone marrow biopsy. <Electronically signed by Luis Ramirez > 03/12/21 1531 <Electronically signed by Michael Almanza > 03/12/21 [id number]
== END ==
LOC: M IRPRO 08:12
PROVIDERS: ATTEND Internal Medicine Hematology & Oncology
DX: D64.9 Anemia, unspecified (principal)

== ENCOUNTER → 2021-03-28 | Outpatient (CLI) | payer MEDICARE, OTHER, BC ==
[~2021-03-28] MED LIST changes: +AMLO10TA PO; -LIDOCAINE 1% MDV 20ML VIAL As Ordered ONE; +PLAV1TAB2 PO; +TERA5CAP3
[2021-03-28 16:21] LABS: BASO % 1.1 % (0.0-1.0); EOS # 0.1 10^3/uL (0.0-0.5); EOS % 1.7 % (0.0-3.0); HEMATOCRIT 33.9 % (36.0-47.0); HEMOGLOBIN 10.5 g/dl (12.0-15.5); LYMPH # 0.9 10^3/uL (1.5-5.0); LYMPH % 24.2 % (24.0-44.0); MONO # 0.4 10^3/uL (0.0-0.8); MONO % 11.3 % (2.0-8.0); NEUTROPHILS # 2.2 10^3/uL (1.5-8.5); NEUTROPHILS % 61.1 % (36.0-66.0); PLATELET COUNT, AUTOMATED 197 10^3/uL (150-450); RED BLOOD COUNT 3.39 10^6/uL (4.00-5.40); WHITE BLOOD COUNT 3.6 10^3/uL (4.0-10.0)
[2021-03-28 17:04] LABS: BLOOD UREA NITROGEN 30 MG/DL (7-18); CALCIUM LEVEL 8.7 MG/DL (8.8-10.2); CARBON DIOXIDE LEVEL 29 MEQ/L (21-32); CHLORIDE LEVEL 106 MEQ/L (98-107); CREATININE FOR GFR 1.07 MG/DL (0.55-1.30); FERRITIN 59 NG/ML (8-252); GLOMERULAR FILTRATION RATE 52.8 (>39); GLUCOSE, FASTING 92 MG/DL (70-100); IRON (FE) 73 UG/DL (50-170); LDH LACTATE DEHYDROGENASE 207 U/L (84-246); PERCENT SATURATION 21.7 % (13.2-45.0); POTASSIUM SERUM 4.4 MEQ/L (3.5-5.1); SODIUM LEVEL 140 MEQ/L (136-145); TOTAL IRON BINDING CAPACITY 336 UG/DL (250-450)
[2021-03-28 17:33] LABS: ERYTHROCYTE SEDIMENTATION RATE 18 mm/hr (0-30)
[2021-03-31 11:16] LABS: FOLATE > 24.0 NG/ML (>5.4)
[2021-04-01 14:16] LABS: ERYTHROPOIETIN 23.6 mIU/mL (2.6-18.5); HOMOCYST(E)INE SERUM 15.2 umol/L (0.0-19.2)
== END ==
LOC: M WUC 12:06
PROVIDERS: ATTEND Internal Medicine Hematology & Oncology
DX: D64.9 Anemia, unspecified (principal)

== ENCOUNTER → 2021-04-24 | Outpatient (CLI) | payer MEDICARE, OTHER, BC ==
[~2021-04-24] MED LIST changes: -AMLO10TA PO; -PLAV1TAB2 PO; -TERA5CAP3
[2021-04-24 14:46] LABS: HEMATOCRIT 32.6 % (36.0-47.0); HEMOGLOBIN 10.5 g/dl (12.0-15.5); MEAN CORPUSCULAR HEMOGLOBIN 31.3 pg (27.0-33.0); MEAN CORPUSCULAR HGB CONC 32.2 g/dl (32.0-36.5); PLATELET COUNT, AUTOMATED 200 10^3/uL (150-450); RED BLOOD COUNT 3.36 10^6/uL (4.00-5.40); WHITE BLOOD COUNT 4.2 10^3/uL (4.0-10.0)
== END ==
LOC: M WUC 11:33
PROVIDERS: ATTEND Physician Assistant
DX: I48.0 Paroxysmal atrial fibrillation (principal)

== ENCOUNTER → 2021-05-06 | Outpatient (CLI) | payer MEDICARE, OTHER, BC ==
[~2021-05-06] MED LIST changes: +AMLO10TA PO
[2021-05-06 16:01] LABS: HEMATOCRIT 36.1 % (36.0-47.0); HEMOGLOBIN 11.5 g/dl (12.0-15.5); MEAN CORPUSCULAR HEMOGLOBIN 31.6 pg (27.0-33.0); MEAN CORPUSCULAR HGB CONC 31.9 g/dl (32.0-36.5); MEAN CORPUSCULAR VOLUME 99.2 fl (80.0-96.0); PLATELET COUNT, AUTOMATED 200 10^3/uL (150-450); RED BLOOD COUNT 3.64 10^6/uL (4.00-5.40); WHITE BLOOD COUNT 3.8 10^3/uL (4.0-10.0)
[2021-05-06 16:36] LABS: ALBUMIN 4.4 GM/DL (3.2-5.2); BILIRUBIN,TOTAL 0.8 MG/DL (0.2-1.0); CALCIUM LEVEL 8.9 MG/DL (8.8-10.2); CHOLESTEROL RISK RATIO 2.553 (<5); CREATININE FOR GFR 1.05 MG/DL (0.55-1.30); FREE T4 1.27 NG/DL (0.76-1.46); POTASSIUM SERUM 4.1 MEQ/L (3.5-5.1); THYROID STIMULATING HORMONE 0.221 uIU/ML (0.358-3.740); TOTAL PROTEIN 7.2 GM/DL (6.4-8.2)
[2021-05-06 16:40] LABS: HEMOGLOBIN A1c 5.6 %
== END ==
LOC: M WUC 10:19
PROVIDERS: ATTEND Family Medicine
DX: E03.9 Hypothyroidism, unspecified (principal); I11.9 Hypertensive heart disease without heart failure; E78.2 Mixed hyperlipidemia; E74.9 Disorder of carbohydrate metabolism, unspecified; I35.9 Nonrheumatic aortic valve disorder, unspecified; Z79.899 Other long term (current) drug therapy

== ENCOUNTER → 2021-05-23 | Outpatient (CLI) | payer MEDICARE, BC, OTHER | LOC: M LABSMTC 09:10 | PROVIDERS: ATTEND Internal Medicine Cardiovascular Disease | DX: Z01.818 Encounter for other preprocedural examination (principal); Z11.52 Encounter for screening for COVID-19 ==

== ENCOUNTER → 2021-06-07 | Outpatient (CLI) | payer MEDICARE, BC, OTHER | LOC: M LABSMTC 11:26 | PROVIDERS: ATTEND Internal Medicine Cardiovascular Disease | DX: Z01.812 Encounter for preprocedural laboratory examination (principal); Z20.822 Contact with and (suspected) exposure to COVID-19 ==

== ENCOUNTER → 2021-06-24 | Outpatient (CLI) | payer MEDICARE, OTHER ==
--- NOTE | 2021-06-24 10:58 | REP ---
INDICATION: PAIN IN LEFT HIP. COMPARISON: None TECHNIQUE: AP and frog-lateral views FINDINGS: There is mild hip joint space narrowing which is asymmetric. There is no acute fracture, dislocation, or subluxation. IMPRESSION: Mild chronic changes. No evidence of an acute osseous abnormality. <Electronically signed by Jude Bailey > 06/24/21 1052
--- NOTE | 2021-06-24 11:00 | REP ---
INDICATION: PAIN IN LEFT KNEE COMPARISON: None TECHNIQUE: Five views FINDINGS: The compartments are symmetric and well maintained. There is no acute fracture, dislocation, or subluxation. IMPRESSION: Within normal limits <Electronically signed by Jude Bailey > 06/24/21 1057
== END ==
LOC: M ADAMS 10:33
PROVIDERS: ATTEND Family Medicine
DX: M25.552 Pain in left hip (principal); M25.562 Pain in left knee; I11.9 Hypertensive heart disease without heart failure; E74.9 Disorder of carbohydrate metabolism, unspecified; I35.9 Nonrheumatic aortic valve disorder, unspecified; N18.30 Chronic kidney disease, stage 3 unspecified; Z79.899 Other long term (current) drug therapy
CPT/HCPCS: 73502; 73564; 80053; 83036; 85027; G0463

== ENCOUNTER → 2021-06-24 | Outpatient (REF) | payer MEDICARE, OTHER ==
[2021-06-24 13:59] LABS: HEMATOCRIT 30.4 % (36.0-47.0); HEMOGLOBIN 9.7 g/dl (12.0-15.5); MEAN CORPUSCULAR HEMOGLOBIN 32.4 pg (27.0-33.0); MEAN CORPUSCULAR HGB CONC 31.9 g/dl (32.0-36.5); MEAN CORPUSCULAR VOLUME 101.7 fl (80.0-96.0); PLATELET COUNT, AUTOMATED 237 10^3/uL (150-450); RED BLOOD COUNT 2.99 10^6/uL (4.00-5.40); WHITE BLOOD COUNT 4.5 10^3/uL (4.0-10.0)
[2021-06-24 15:45] LABS: HEMOGLOBIN A1c 5.3 %
[2021-06-24 15:49] LABS: ALBUMIN 3.9 GM/DL (3.2-5.2); ALT/SGPT 23 U/L (12-78); BILIRUBIN,TOTAL 0.5 MG/DL (0.2-1.0); BLOOD UREA NITROGEN 17 MG/DL (7-18); CALCIUM LEVEL 9.4 MG/DL (8.8-10.2); CARBON DIOXIDE LEVEL 29 MEQ/L (21-32); CHLORIDE LEVEL 109 MEQ/L (98-107); CREATININE FOR GFR 0.91 MG/DL (0.55-1.30); GLOMERULAR FILTRATION RATE > 60.0 (>39); GLUCOSE, FASTING 96 MG/DL (70-100); POTASSIUM SERUM 4.5 MEQ/L (3.5-5.1); SODIUM LEVEL 142 MEQ/L (136-145)
== END ==
LOC: M SFHCADAM 10:28
PROVIDERS: ATTEND Family Medicine
DX: I11.9 Hypertensive heart disease without heart failure (principal); E74.9 Disorder of carbohydrate metabolism, unspecified; I35.9 Nonrheumatic aortic valve disorder, unspecified; N18.30 Chronic kidney disease, stage 3 unspecified; Z79.899 Other long term (current) drug therapy

== ENCOUNTER → 2021-07-23 | Outpatient (CLI) | payer MEDICARE, BC, OTHER | LOC: M LABSMTC 10:29 | PROVIDERS: ATTEND Internal Medicine Cardiovascular Disease | DX: Z20.828 Contact with and (suspected) exposure to other viral communicable diseases (principal); Z11.52 Encounter for screening for COVID-19 ==

== ENCOUNTER → 2021-08-28 | Outpatient (CLI) | payer MEDICARE, BC, OTHER ==
--- NOTE | 2021-08-28 17:24 | REP ---
INDICATION: LT HIP PAIN. COMPARISON: Hip 06/24/2021. TECHNIQUE: AP view pelvis. FINDINGS: The iliac crests are not visualized. There is no acute fracture or dislocation. There are mild degenerative changes at both hip joints, with mild joint space narrowing, subchondral sclerosis and spurring. 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 <Electronically signed by Michael Almanza > 08/28/21 [id number]
== END ==
LOC: M SOG 08:12
PROVIDERS: ATTEND Orthopaedic Surgery Adult Reconstructive Orthopaedic Surgery
DX: M25.552 Pain in left hip (principal)

== ENCOUNTER → 2021-12-12 | Outpatient (CLI) | payer MEDICARE, BC, OTHER ==
[~2021-12-12] MED LIST changes: -D31000TA2 PO; +ISOVUE-370 76% 100ML VIAL As Ordered ONE; +PLAV1TAB2 PO; +TERA10CA3 PO; +TERA5CAP3; +VITA100093 PO
== END ==
LOC: M RAD 12:07
PROVIDERS: ATTEND Internal Medicine Hematology & Oncology
DX: R07.9 Chest pain, unspecified (principal); I70.0 Atherosclerosis of aorta
CPT/HCPCS: 71275; Q9967

== ENCOUNTER 2021-12-17 11:55 | Inpatient (IN) | payer MEDICARE, BC, OTHER ==
[~2021-12-17] VITALS: Ht 162.6 cm; Wt 78.1 kg
[~2021-12-17 11:55] MED LIST changes: -ISOVUE-370 76% 100ML VIAL As Ordered ONE
[2021-12-17 13:16] LABS: BASO % 0.7 % (0.0-1.0); EOS % 0.4 % (0.0-3.0); HEMATOCRIT 35.8 % (36.0-47.0); HEMOGLOBIN 11.9 g/dl (12.0-15.5); LYMPH # 0.6 10^3/uL (1.5-5.0); LYMPH % 11.2 % (24.0-44.0); MEAN CORPUSCULAR HEMOGLOBIN 31.2 pg (27.0-33.0); MEAN CORPUSCULAR HGB CONC 33.2 g/dl (32.0-36.5); MEAN CORPUSCULAR VOLUME 93.7 fl (80.0-96.0); MONO # 0.3 10^3/uL (0.0-0.8); MONO % 5.7 % (2.0-8.0); NEUTROPHILS # 4.6 10^3/uL (1.5-8.5); NEUTROPHILS % 81.8 % (36.0-66.0); PLATELET COUNT, AUTOMATED 167 10^3/uL (150-450); RED BLOOD COUNT 3.82 10^6/uL (4.00-5.40); WHITE BLOOD COUNT 5.6 10^3/uL (4.0-10.0)
[2021-12-17 13:27] LABS: INR 0.94; PARTIAL THROMBOPLASTIN TIME 24.4 SECONDS (25.9-37.0)
[2021-12-17 13:50] LABS: CK-MB VALUE MASS 1.9 NG/ML (<3.6); MB/CK RELATIVE INDEX 0.91 (< OR =4)
[2021-12-17 14:04] LABS: ALBUMIN 3.9 GM/DL (3.2-5.2); BILIRUBIN,DIRECT 0.2 MG/DL (0.0-0.2); BILIRUBIN,TOTAL 0.7 MG/DL (0.2-1.0); CALCIUM LEVEL 8.9 MG/DL (8.8-10.2); CREATININE FOR GFR 1.12 MG/DL (0.55-1.30); FREE T4 1.52 NG/DL (0.76-1.46); GLOMERULAR FILTRATION RATE 50.1 (>39); POTASSIUM SERUM 4.5 MEQ/L (3.5-5.1); THYROID STIMULATING HORMONE 0.125 uIU/ML (0.358-3.740); TOTAL PROTEIN 6.7 GM/DL (6.4-8.2)
[2021-12-17] MEDS ORDERED: METOPROLOL TART 25 MG TABLET PO ONE (14:15)
[2021-12-17 17:43] LABS: MAGNESIUM LEVEL 2.2 MG/DL (1.8-2.4)
[2021-12-17] MEDS ORDERED: METOPROLOL TART 25 MG TABLET PO SCH (18:00)
[2021-12-17 18:23] LABS: RSV AMPLIFICATION NEGATIVE (NEGATIVE)
[2021-12-17] MEDS ORDERED: VITA100093 PO (19:12)
[2021-12-17] MEDS ORDERED: HOME MED LIST COMPLETE! XX SCH (19:20)
[2021-12-17 19:45] VITALS: BP 142/73
[2021-12-17] MEDS ORDERED: NON-FORMULARY 1 EA EA PO SCH (21:00)
[2021-12-17] MEDS: BACLOFEN 10 MG TAB PO SCH (21:27)
[2021-12-17] MEDS: TERAZOSIN 5MG CAPSULE PO SCH (21:28)
[2021-12-17] MEDS: amLODIPine 5 MG TAB PO SCH (21:28)
[2021-12-17] MEDS: CETIRIZINE (ZyrTEC) 10 MG TAB PO SCH (21:29)
[2021-12-17] MEDS: SIMVASTATIN 40 MG TAB PO SCH (21:29)
[2021-12-17] MEDS: MAGNESIUM OXIDE 400MG TAB (MAG-OX) PO SCH (21:29)
[2021-12-17] MEDS: OCUVITE 1 TAB PO SCH (21:29)
[2021-12-17] MEDS: VITAMIN D 1,000 INTERNATIONAL UNITS TABLET PO SCH (21:30)
[2021-12-17 22:00] VITALS: BP 135/68
[2021-12-18] VITALS (10 sets, daily range): BP systolic 102–127; BP diastolic 58–76
[2021-12-18] MEDS ORDERED: LEVOTHYROXINE 100MCG TABLET (0.1MG) PO SCH (06:00)
[2021-12-18 07:48] LABS: HEMATOCRIT 34.4 % (36.0-47.0); HEMOGLOBIN 11.4 g/dl (12.0-15.5); MEAN CORPUSCULAR HEMOGLOBIN 31.7 pg (27.0-33.0); MEAN CORPUSCULAR HGB CONC 33.1 g/dl (32.0-36.5); MEAN CORPUSCULAR VOLUME 95.6 fl (80.0-96.0); PLATELET COUNT, AUTOMATED 166 10^3/uL (150-450)
[2021-12-18 08:07] LABS: CALCIUM LEVEL 8.7 MG/DL (8.8-10.2); CREATININE FOR GFR 1.08 MG/DL (0.55-1.30); GLOMERULAR FILTRATION RATE 52.2 (>39); POTASSIUM SERUM 4.3 MEQ/L (3.5-5.1)
[2021-12-18] MEDS: FUROSEMIDE 20 MG TAB PO SCH (08:18)
[2021-12-18] MEDS: MULTIVITAMINS/MINERALS THERAP 1 TAB PO SCH (08:18)
[2021-12-18] MEDS: ASPIRIN 81 MG CHEW TABLET PO SCH (08:18)
[2021-12-18] MEDS: OCUVITE 1 TAB PO SCH ×2 (08:18→21:59)
[2021-12-18] MEDS: PANTOPRAZOLE 40MG TAB (PROTONIX) PO SCH (08:18)
[2021-12-18] MEDS ORDERED: ENOXAPARIN 40MG/0.4ML SYRINGE (J1650 PER 10MG) SC ONE (09:00)
[2021-12-18] MEDS ORDERED: propofoL 200 MG/20 ML VIAL As Ordered ONE (17:50)
[2021-12-18] MEDS ORDERED: LIDOCAINE 2% 100MG/5ML SDV (FOR ANES.) As Ordered ONE (17:50)
[2021-12-18] MEDS ORDERED: LR 1,000 ML IV SCH (18:30)
[2021-12-18] MEDS ORDERED: fentaNYL 100 MCG/2 ML INJECTION IV PRN (18:30)
[2021-12-18] MEDS ORDERED: ONDANSETRON 4MG/2ML VIAL IV PRN (18:30)
[2021-12-18] MEDS: VITAMIN D 1,000 INTERNATIONAL UNITS TABLET PO SCH (21:59)
[2021-12-18] MEDS: CETIRIZINE (ZyrTEC) 10 MG TAB PO SCH (21:59)
[2021-12-18] MEDS: MAGNESIUM OXIDE 400MG TAB (MAG-OX) PO SCH (21:59)
[2021-12-18] MEDS: TERAZOSIN 5MG CAPSULE PO SCH (21:59)
[2021-12-18] MEDS: BACLOFEN 10 MG TAB PO SCH (21:59)
[2021-12-18] MEDS: amLODIPine 5 MG TAB PO SCH (21:59)
[2021-12-18] MEDS: SIMVASTATIN 40 MG TAB PO SCH (21:59)
[2021-12-19] VITALS: BP 105/60
[2021-12-19 04:00] VITALS: BP 118/58
[2021-12-19] MEDS ORDERED: LEVOTHYROXINE 50MCG TABLET (0.05MG) PO SCH (06:00)
[2021-12-19] MEDS ORDERED: LEVO50TA5 PO (07:28)
[2021-12-19 08:00] VITALS: BP 123/56
[2021-12-19] MEDS: MULTIVITAMINS/MINERALS THERAP 1 TAB PO SCH (08:02)
[2021-12-19] MEDS: ASPIRIN 81 MG CHEW TABLET PO SCH (08:03)
[2021-12-19] MEDS: FUROSEMIDE 20 MG TAB PO SCH (08:03)
[2021-12-19] MEDS: OCUVITE 1 TAB PO SCH (08:03)
[2021-12-19] MEDS: PANTOPRAZOLE 40MG TAB (PROTONIX) PO SCH (08:03)
== END 2021-12-19 10:08 | disposition home or self-care (01) | DRG 310 ==
LOC: M ED 11:55 → M ED INP 17:17 → ENRESERV 18:46 → M PCU 19:12 → OBSVTOIN 12-18 07:17
PROVIDERS: ADMIT General Practice; ATTEND General Practice
PROC: 5A2204Z Restoration of Cardiac Rhythm, Single (ICD-10-PCS; principal; 2021-12-18 17:00)
DX: I48.0 Paroxysmal atrial fibrillation (principal); Z86.73 Personal history of transient ischemic attack (TIA), and cerebral infarction without residual deficits; Z95.818 Presence of other cardiac implants and grafts; D50.0 Iron deficiency anemia secondary to blood loss (chronic); E03.9 Hypothyroidism, unspecified; I12.9 Hypertensive chronic kidney disease with stage 1 through stage 4 chronic kidney disease, or unspecified chronic kidney disease; I73.9 Peripheral vascular disease, unspecified; H35.30 Unspecified macular degeneration; K21.9 Gastro-esophageal reflux disease without esophagitis; Z85.828 Personal history of other malignant neoplasm of skin; I35.2 Nonrheumatic aortic (valve) stenosis with insufficiency; E04.1 Nontoxic single thyroid nodule; E78.5 Hyperlipidemia, unspecified; R73.03 Prediabetes; N18.30 Chronic kidney disease, stage 3 unspecified; Z98.41 Cataract extraction status, right eye; Z98.42 Cataract extraction status, left eye; Z87.891 Personal history of nicotine dependence; Z20.822 Contact with and (suspected) exposure to COVID-19; Z79.82 Long term (current) use of aspirin; Z79.899 Other long term (current) drug therapy; Z88.8 Allergy status to other drugs, medicaments and biological substances; K29.50 Unspecified chronic gastritis without bleeding; R00.1 Bradycardia, unspecified

== ENCOUNTER → 2022-01-28 | Outpatient (CLI) | payer MEDICARE, BC, OTHER ==
[~2022-01-28] MED LIST changes: +LEVO50TA5 PO
[2022-01-28 16:58] LABS: ALBUMIN 4.2 GM/DL (3.2-5.2); BILIRUBIN,TOTAL 0.9 MG/DL (0.2-1.0); CALCIUM LEVEL 9.1 MG/DL (8.8-10.2); CHOLESTEROL RISK RATIO 2.176 (<5); CREATININE FOR GFR 1.24 MG/DL (0.55-1.30); FREE T4 0.85 NG/DL (0.76-1.46); GLOMERULAR FILTRATION RATE 44.4 (>39); PERCENT SATURATION 19.8 % (13.2-45.0); POTASSIUM SERUM 4.1 MEQ/L (3.5-5.1); THYROID STIMULATING HORMONE 13.7 uIU/ML (0.358-3.740)
[2022-01-28 17:18] LABS: HEMATOCRIT 32.3 % (36.0-47.0); HEMOGLOBIN 10.6 g/dl (12.0-15.5); MEAN CORPUSCULAR HEMOGLOBIN 32.1 pg (27.0-33.0); MEAN CORPUSCULAR HGB CONC 32.8 g/dl (32.0-36.5); MEAN CORPUSCULAR VOLUME 97.9 fl (80.0-96.0); PLATELET COUNT, AUTOMATED 165 10^3/uL (150-450); WHITE BLOOD COUNT 3.6 10^3/uL (4.0-10.0)
== END ==
LOC: M WUC 11:51
PROVIDERS: ATTEND Family Medicine
DX: E03.9 Hypothyroidism, unspecified (principal); I11.9 Hypertensive heart disease without heart failure; N18.30 Chronic kidney disease, stage 3 unspecified; D50.8 Other iron deficiency anemias

== ENCOUNTER → 2022-02-10 | Outpatient (CLI) | payer MEDICARE, BC, OTHER | LOC: M WHC 09:56 | PROVIDERS: ATTEND Family Medicine | DX: Z12.31 Encounter for screening mammogram for malignant neoplasm of breast (principal) ==

== ENCOUNTER → 2022-03-17 | Outpatient (REF) | payer MEDICARE, BC, OTHER ==
[2022-03-17 16:21] LABS: FREE T4 1.09 NG/DL (0.76-1.46); THYROID STIMULATING HORMONE 2.86 uIU/ML (0.358-3.740)
== END ==
LOC: M WUC 15:26
PROVIDERS: ATTEND Family Medicine
DX: E03.9 Hypothyroidism, unspecified (principal)

== ENCOUNTER → 2022-05-07 | Outpatient (CLI) | payer MEDICARE, BC, OTHER ==
[2022-05-07 12:39] LABS: HEMATOCRIT 34.7 % (36.0-47.0); HEMOGLOBIN 11.3 g/dl (12.0-15.5); MEAN CORPUSCULAR HEMOGLOBIN 32.2 pg (27.0-33.0); MEAN CORPUSCULAR HGB CONC 32.6 g/dl (32.0-36.5); MEAN CORPUSCULAR VOLUME 98.9 fl (80.0-96.0); PLATELET COUNT, AUTOMATED 172 10^3/uL (150-450); RED BLOOD COUNT 3.51 10^6/uL (4.00-5.40); WHITE BLOOD COUNT 3.4 10^3/uL (4.0-10.0)
[2022-05-07 13:17] LABS: CALCIUM LEVEL 9.1 MG/DL (8.8-10.2); CREATININE FOR GFR 1.19 MG/DL (0.55-1.30); FREE T4 0.9 NG/DL (0.76-1.46); GLOMERULAR FILTRATION RATE 46.6 (>39); THYROID STIMULATING HORMONE 8.93 uIU/ML (0.358-3.740)
== END ==
LOC: M WUC 10:38
PROVIDERS: ATTEND Family Medicine
DX: E03.9 Hypothyroidism, unspecified (principal); D64.9 Anemia, unspecified; I11.9 Hypertensive heart disease without heart failure

== ENCOUNTER → 2022-05-19 | Outpatient (CLI) | payer MEDICARE, BC, OTHER | LOC: M WUC 11:27 | PROVIDERS: ATTEND Family Medicine | DX: M53.3 Sacrococcygeal disorders, not elsewhere classified (principal) ==

== ENCOUNTER → 2022-06-10 | Outpatient (CLI) | payer MEDICARE, BC, OTHER | LOC: M PLAIMG 10:20 | PROVIDERS: ATTEND Family Medicine | DX: M53.3 Sacrococcygeal disorders, not elsewhere classified (principal) ==

== ENCOUNTER → 2022-08-17 | Outpatient (CLI) | payer MEDICARE, BC, OTHER ==
[~2022-08-17] MED LIST changes: +CLOP75TA99 PO; +LEVO75TA4 PO; -PLAV1TAB2 PO
[2022-08-17 17:30] LABS: HEMATOCRIT 31.9 % (36.0-47.0); HEMOGLOBIN 10.3 g/dl (12.0-15.5); MEAN CORPUSCULAR HEMOGLOBIN 32.6 pg (27.0-33.0); MEAN CORPUSCULAR HGB CONC 32.3 g/dl (32.0-36.5); MEAN CORPUSCULAR VOLUME 100.9 fl (80.0-96.0); PLATELET COUNT, AUTOMATED 172 10^3/uL (150-450); RED BLOOD COUNT 3.16 10^6/uL (4.00-5.40); WHITE BLOOD COUNT 3.7 10^3/uL (4.0-10.0)
[2022-08-17 18:28] LABS: POTASSIUM SERUM 4.3 MMOL/L (3.5-5.1)
[2022-08-17 18:34] LABS: CALCIUM LEVEL 8.9 MG/DL (8.3-10.6)
[2022-08-17 18:36] LABS: CREATININE FOR GFR 0.97 MG/DL (0.55-1.30); PERCENT SATURATION 21.7 % (13.2-45.0)
[2022-08-17 18:38] LABS: FERRITIN 39.7 NG/ML (7.3-270.7); FREE T4 1.4 NG/DL (0.89-1.76)
[2022-08-17 18:39] LABS: THYROID STIMULATING HORMONE 2.429 uIU/ML (0.55-4.78)
== END ==
LOC: M WUC 13:28
PROVIDERS: ATTEND Family Medicine
DX: E03.9 Hypothyroidism, unspecified (principal); D64.9 Anemia, unspecified; I11.9 Hypertensive heart disease without heart failure

== ENCOUNTER → 2023-02-12 | Outpatient (CLI) | payer MEDICARE, BC, OTHER ==
[2023-02-12 11:48] LABS: HEMATOCRIT 32.8 % (36.0-47.0); HEMOGLOBIN 10.7 g/dl (12.0-15.5); MEAN CORPUSCULAR HEMOGLOBIN 32.1 pg (27.0-33.0); MEAN CORPUSCULAR HGB CONC 32.6 g/dl (32.0-36.5); MEAN CORPUSCULAR VOLUME 98.5 fl (80.0-96.0); PLATELET COUNT, AUTOMATED 162 10^3/uL (150-450); RED BLOOD COUNT 3.33 10^6/uL (4.00-5.40); WHITE BLOOD COUNT 3.7 10^3/uL (4.0-10.0)
[2023-02-12 12:27] LABS: IRON (FE) 58 UG/DL (50-170)
[2023-02-12 12:29] LABS: PERCENT SATURATION 17.8 % (13.2-45.0); TOTAL IRON BINDING CAPACITY 326 UG/DL (250-425)
[2023-02-12 12:30] LABS: ALBUMIN 4.2 G/DL (3.2-5.2); ALKALINE PHOSPHATASE 64 U/L (46-116); ALT/SGPT 26 U/L (7.0-40); AST/SGOT 30 U/L (<34); BILIRUBIN,TOTAL 0.9 MG/DL (0.3-1.2); BLOOD UREA NITROGEN 28 MG/DL (9-23); CALCIUM LEVEL 9.1 MG/DL (8.3-10.6); CARBON DIOXIDE LEVEL 28 MMOL/L (20-31); CHLORIDE LEVEL 104 MMOL/L (98-107); CHOLESTEROL LEVEL 130 MG/DL (<200); CHOLESTEROL RISK RATIO 2.24 (<5); CREATININE FOR GFR 1.06 MG/DL (0.55-1.30); FERRITIN 45.9 NG/ML (7.3-270.7); FOLATE > 24.00 NG/ML (>5.4); GLOMERULAR FILTRATION RATE 53.1 (>32); GLUCOSE, FASTING 94 MG/DL (74-106); HDL CHOLESTEROL 57.9 MG/DL (>40); LDL CHOLESTEROL 62.5 MG/DL (<100); NON-HDL-C 72.1 MG/DL; POTASSIUM SERUM 4.5 MMOL/L (3.5-5.1); SODIUM LEVEL 139 MMOL/L (136-145); THYROID STIMULATING HORMONE 1.612 uIU/ML (0.55-4.78); TOTAL PROTEIN 6.5 G/DL (5.7-8.2); TRIGLYCERIDES LEVEL 48 MG/DL (<150); VITAMIN B12 LEVEL 774 PG/ML (211-911)
[2023-02-12 12:54] LABS: HEMOGLOBIN A1c 5.4 % (4.0-6.0)
== END ==
LOC: M WUC 10:20
PROVIDERS: ATTEND Family Medicine
DX: E03.9 Hypothyroidism, unspecified (principal); E78.2 Mixed hyperlipidemia; E74.9 Disorder of carbohydrate metabolism, unspecified; D64.9 Anemia, unspecified; Z79.890 Hormone replacement therapy; Z79.899 Other long term (current) drug therapy

== ENCOUNTER → 2023-02-18 | Outpatient (CLI) | payer MEDICARE, BC, OTHER | LOC: M WHC 11:57 | PROVIDERS: ATTEND Family Medicine | DX: Z12.31 Encounter for screening mammogram for malignant neoplasm of breast (principal) ==

== ENCOUNTER 2023-03-25 13:19 | Emergency (ER) | payer MEDICARE, BC, OTHER ==
[~2023-03-25] VITALS: Ht 162.6 cm; Wt 71.3 kg
[2023-03-25 15:17] LABS: EOS % 0.7 % (0.0-3.0); HEMATOCRIT 35.5 % (36.0-47.0); HEMOGLOBIN 11.9 g/dl (12.0-15.5); LYMPH # 0.9 10^3/uL (1.5-5.0); LYMPH % 20.5 % (24.0-44.0); MEAN CORPUSCULAR HEMOGLOBIN 32.8 pg (27.0-33.0); MEAN CORPUSCULAR HGB CONC 33.5 g/dl (32.0-36.5); MEAN CORPUSCULAR VOLUME 97.8 fl (80.0-96.0); MONO # 0.4 10^3/uL (0.0-0.8); MONO % 9.5 % (2.0-8.0); NEUTROPHILS # 2.9 10^3/uL (1.5-8.5); NEUTROPHILS % 68.1 % (36.0-66.0); PLATELET COUNT, AUTOMATED 173 10^3/uL (150-450); RED BLOOD COUNT 3.63 10^6/uL (4.00-5.40); WHITE BLOOD COUNT 4.2 10^3/uL (4.0-10.0)
[2023-03-25 15:38] LABS: LIPASE 43 U/L (12-53)
[2023-03-25 15:42] LABS: FREE T4 1.53 NG/DL (0.89-1.76); THYROID STIMULATING HORMONE 0.498 uIU/ML (0.55-4.78)
[2023-03-25 15:44] LABS: ALBUMIN 4.3 G/DL (3.2-5.2); ALKALINE PHOSPHATASE 72 U/L (46-116); AST/SGOT 34 U/L (<34); BILIRUBIN,DIRECT 0.2 MG/DL (<0.4); BILIRUBIN,TOTAL 0.8 MG/DL (0.3-1.2); BLOOD UREA NITROGEN 26 MG/DL (9-23); CALCIUM LEVEL 8.7 MG/DL (8.3-10.6); CARBON DIOXIDE LEVEL 30 MMOL/L (20-31); CHLORIDE LEVEL 105 MMOL/L (98-107); CREATININE FOR GFR 0.93 MG/DL (0.55-1.30); GLOMERULAR FILTRATION RATE > 60.0 (>32); GLUCOSE, FASTING 105 MG/DL (74-106); MAGNESIUM LEVEL 2.1 MG/DL (1.8-2.4); POTASSIUM SERUM 4.5 MMOL/L (3.5-5.1); SODIUM LEVEL 138 MMOL/L (136-145); TOTAL PROTEIN 6.5 G/DL (5.7-8.2)
[2023-03-25] MEDS ORDERED: NS 500 ML IV ONE (15:50)
[2023-03-25 15:59] LABS: ALT/SGPT 27 U/L (7.0-40)
[2023-03-25] MEDS ORDERED: NS 1,000 ML IV SCH (16:00)
[2023-03-25] MEDS ORDERED: propofoL 200 MG/20 ML VIAL IV.PROC PRN (16:00)
[2023-03-25] MEDS ORDERED: SUCRALFATE SUSP 1GM/10ML UD PO ONE (16:00)
[2023-03-25 17:30] VITALS: BP 151/66; TEMP 96.6; O2SAT 100
== END 2023-03-25 17:55 | disposition home or self-care (01) ==
LOC: M ED 13:19
DX: I48.91 Unspecified atrial fibrillation (principal); R00.1 Bradycardia, unspecified; E78.5 Hyperlipidemia, unspecified; K21.9 Gastro-esophageal reflux disease without esophagitis; N18.9 Chronic kidney disease, unspecified; Z86.79 Personal history of other diseases of the circulatory system; Z87.891 Personal history of nicotine dependence; Z88.8 Allergy status to other drugs, medicaments and biological substances; Z79.82 Long term (current) use of aspirin; Z79.810 Long term (current) use of selective estrogen receptor modulators (SERMs); Z79.899 Other long term (current) drug therapy

== ENCOUNTER → 2023-07-16 | Outpatient (CLI) | payer MEDICARE, BC, OTHER ==
[~2023-07-16] MED LIST changes: +SYNT88TA2
[2023-07-16 17:45] LABS: BASO # 0.1 10^3/uL (0.0-0.2); BASO % 1.4 % (0.0-1.0); EOS # 0.1 10^3/uL (0.0-0.5); EOS % 1.4 % (0.0-3.0); HEMATOCRIT 34.2 % (36.0-47.0); HEMOGLOBIN 11.5 g/dl (12.0-15.5); LYMPH # 1.2 10^3/uL (1.5-5.0); LYMPH % 26.3 % (24.0-44.0); MEAN CORPUSCULAR HEMOGLOBIN 33.2 pg (27.0-33.0); MEAN CORPUSCULAR HGB CONC 33.6 g/dl (32.0-36.5); MEAN CORPUSCULAR VOLUME 98.8 fl (80.0-96.0); MONO # 0.5 10^3/uL (0.0-0.8); MONO % 11.2 % (2.0-8.0); NEUTROPHILS # 2.6 10^3/uL (1.5-8.5); NEUTROPHILS % 59.5 % (36.0-66.0); PLATELET COUNT, AUTOMATED 190 10^3/uL (150-450); RED BLOOD COUNT 3.46 10^6/uL (4.00-5.40); WHITE BLOOD COUNT 4.4 10^3/uL (4.0-10.0)
[2023-07-16 18:04] LABS: ALBUMIN 4.4 G/DL (3.2-5.2); BILIRUBIN,TOTAL 1.1 MG/DL (0.3-1.2); CALCIUM LEVEL 8.9 MG/DL (8.3-10.6); CREATININE FOR GFR 0.97 MG/DL (0.55-1.30); GLOMERULAR FILTRATION RATE 58.8 (>32); PERCENT SATURATION 23.8 % (13.2-45.0); POTASSIUM SERUM 4.3 MMOL/L (3.5-5.1)
[2023-07-16 18:08] LABS: FERRITIN 69.6 NG/ML (7.3-270.7)
== END ==
LOC: M WUC 13:01
PROVIDERS: ATTEND Internal Medicine Medical Oncology
DX: D64.9 Anemia, unspecified (principal)

== ENCOUNTER 2023-07-20 11:31 | Emergency (ER) | payer MEDICARE, BC, OTHER ==
[~2023-07-20 11:31] MED LIST changes: -SYNT88TA2
[2023-07-20] MEDS ORDERED: NS 1,000 ML IV SCH (11:55)
[2023-07-20] MEDS ORDERED: propofoL 200 MG/20 ML VIAL IV.PROC PRN (11:55)
[2023-07-20] MEDS ORDERED: SYNT88TA2 (11:57)
[2023-07-20 12:17] LABS: BASO # 0.1 10^3/uL (0.0-0.2); BASO % 0.7 % (0.0-1.0); EOS % 0.3 % (0.0-3.0); HEMATOCRIT 38.2 % (36.0-47.0); HEMOGLOBIN 12.9 g/dl (12.0-15.5); LYMPH # 0.7 10^3/uL (1.5-5.0); LYMPH % 10.8 % (24.0-44.0); MEAN CORPUSCULAR HEMOGLOBIN 32.8 pg (27.0-33.0); MEAN CORPUSCULAR HGB CONC 33.8 g/dl (32.0-36.5); MEAN CORPUSCULAR VOLUME 97.2 fl (80.0-96.0); MONO # 0.4 10^3/uL (0.0-0.8); MONO % 6.1 % (2.0-8.0); NEUTROPHILS # 5.5 10^3/uL (1.5-8.5); NEUTROPHILS % 81.8 % (36.0-66.0); PLATELET COUNT, AUTOMATED 189 10^3/uL (150-450); RED BLOOD COUNT 3.93 10^6/uL (4.00-5.40); WHITE BLOOD COUNT 6.8 10^3/uL (4.0-10.0)
[2023-07-20 12:27] LABS: INR 0.99; PROTHROMBIN TIME 12.8 SECONDS (12.5-14.5)
[2023-07-20 12:43] LABS: ALBUMIN 4.6 G/DL (3.2-5.2); BILIRUBIN,DIRECT 0.3 MG/DL (<0.4); CALCIUM LEVEL 9.4 MG/DL (8.3-10.6); CREATININE FOR GFR 0.97 MG/DL (0.55-1.30); GLOMERULAR FILTRATION RATE 58.8 (>32); MB/CK RELATIVE INDEX 2.22 (< OR =4); POTASSIUM SERUM 4.2 MMOL/L (3.5-5.1); TOTAL PROTEIN 7.4 G/DL (5.7-8.2)
[2023-07-20 12:44] LABS: FREE T4 1.69 NG/DL (0.89-1.76)
[2023-07-20 12:45] LABS: THYROID STIMULATING HORMONE 1.101 uIU/ML (0.55-4.78)
[2023-07-20 14:07] LABS: CK-MB VALUE MASS 1.3 NG/ML (<3.6); MB/CK RELATIVE INDEX 1.8 (< OR =4)
[2023-07-20 14:39] VITALS: BP 158/67; TEMP 97.3; O2SAT 100
== END 2023-07-20 14:40 | disposition home or self-care (01) ==
LOC: M ED 11:31
DX: I48.0 Paroxysmal atrial fibrillation (principal); R00.1 Bradycardia, unspecified; Z86.79 Personal history of other diseases of the circulatory system; Z88.3 Allergy status to other anti-infective agents; Z88.8 Allergy status to other drugs, medicaments and biological substances; Z79.810 Long term (current) use of selective estrogen receptor modulators (SERMs); Z79.82 Long term (current) use of aspirin; Z79.899 Other long term (current) drug therapy

== ENCOUNTER → 2023-08-20 | Outpatient (CLI) | payer MEDICARE, BC, OTHER ==
[~2023-08-20] MED LIST changes: +SYNT88TA2
[2023-08-20 17:27] LABS: HEMATOCRIT 32.6 % (36.0-47.0); HEMOGLOBIN 10.7 g/dl (12.0-15.5); MEAN CORPUSCULAR HEMOGLOBIN 32.4 pg (27.0-33.0); MEAN CORPUSCULAR HGB CONC 32.8 g/dl (32.0-36.5); MEAN CORPUSCULAR VOLUME 98.8 fl (80.0-96.0); PLATELET COUNT, AUTOMATED 173 10^3/uL (150-450); WHITE BLOOD COUNT 3.8 10^3/uL (4.0-10.0)
[2023-08-20 17:42] LABS: HEMOGLOBIN A1c 5.1 % (4.0-6.0)
[2023-08-20 17:45] LABS: ALBUMIN 4.1 G/DL (3.2-5.2); BILIRUBIN,TOTAL 1.1 MG/DL (0.3-1.2); CHOLESTEROL RISK RATIO 2.25 (<5); CREATININE FOR GFR 0.99 MG/DL (0.55-1.30); FREE T4 1.51 NG/DL (0.89-1.76); GLOMERULAR FILTRATION RATE 57.5 (>32); HDL CHOLESTEROL 65.7 MG/DL (>40); LDL CHOLESTEROL 71.1 MG/DL (<100); NON-HDL-C 82.3 MG/DL; POTASSIUM SERUM 4.2 MMOL/L (3.5-5.1); THYROID STIMULATING HORMONE 1.741 uIU/ML (0.55-4.78); TOTAL PROTEIN 6.7 G/DL (5.7-8.2)
== END ==
LOC: M WUC 11:58
PROVIDERS: ATTEND Family Medicine
DX: D64.9 Anemia, unspecified (principal); E78.2 Mixed hyperlipidemia; E74.9 Disorder of carbohydrate metabolism, unspecified; I11.9 Hypertensive heart disease without heart failure; E03.9 Hypothyroidism, unspecified; Z79.899 Other long term (current) drug therapy

== ENCOUNTER 2023-08-24 11:16 | Inpatient (IN) | payer MEDICARE, BC, OTHER ==
[~2023-08-24] VITALS: Ht 162.6 cm; Wt 70.2 kg
[~2023-08-24 11:16] MED LIST changes: -SYNT88TA2
[2023-08-24 12:29] LABS: BASO % 0.6 % (0.0-1.0); EOS % 0.4 % (0.0-3.0); HEMATOCRIT 36.6 % (36.0-47.0); HEMOGLOBIN 12.2 g/dl (12.0-15.5); LYMPH # 0.8 10^3/uL (1.5-5.0); LYMPH % 10.9 % (24.0-44.0); MEAN CORPUSCULAR HEMOGLOBIN 32.3 pg (27.0-33.0); MEAN CORPUSCULAR HGB CONC 33.3 g/dl (32.0-36.5); MEAN CORPUSCULAR VOLUME 96.8 fl (80.0-96.0); MONO # 0.4 10^3/uL (0.0-0.8); MONO % 6.2 % (2.0-8.0); NEUTROPHILS # 5.7 10^3/uL (1.5-8.5); NEUTROPHILS % 81.8 % (36.0-66.0); PLATELET COUNT, AUTOMATED 176 10^3/uL (150-450); RED BLOOD COUNT 3.78 10^6/uL (4.00-5.40); WHITE BLOOD COUNT 6.9 10^3/uL (4.0-10.0)
[2023-08-24 12:42] LABS: INR 1.02; PROTHROMBIN TIME 13.1 SECONDS (12.5-14.5)
[2023-08-24 12:44] LABS: CK-MB VALUE MASS 1.1 NG/ML (<3.6)
[2023-08-24 12:46] LABS: ALBUMIN 4.3 G/DL (3.2-5.2); BILIRUBIN,DIRECT 0.3 MG/DL (<0.4); BILIRUBIN,TOTAL 1.1 MG/DL (0.3-1.2); GLOMERULAR FILTRATION RATE 56.8 (>32); MB/CK RELATIVE INDEX 1.06 (< OR =4); POTASSIUM SERUM 4.1 MMOL/L (3.5-5.1); TOTAL PROTEIN 6.9 G/DL (5.7-8.2)
[2023-08-24 12:48] LABS: FREE T4 1.52 NG/DL (0.89-1.76)
[2023-08-24] MEDS ORDERED: ISOVUE-370 76% 100ML VIAL As Ordered ONE (12:48)
[2023-08-24 12:49] LABS: THYROID STIMULATING HORMONE 2.507 uIU/ML (0.55-4.78)
[2023-08-24] MEDS: METOPROLOL 5 MG/5 ML VIAL IV SCH ×4 (12:55→13:37)
[2023-08-24 12:56] LABS: RSV AMPLIFICATION NEGATIVE (NEGATIVE)
[2023-08-24 14:03] LABS: CK-MB VALUE MASS 1.8 NG/ML (<3.6); MB/CK RELATIVE INDEX 2.02 (< OR =4)
[2023-08-24] MEDS ORDERED: METOPROLOL TART 25 MG TABLET PO ONE (14:45)
[2023-08-24] MEDS ORDERED: LORazepam 2 MG/ML 1ML VIAL IV STA (15:57)
[2023-08-24] MEDS ORDERED: MAALOX 30 ML SUSP *UDC PO PRN (16:05)
[2023-08-24] MEDS ORDERED: MOM 30ML SUSPENSION UDC PO PRN (16:05)
[2023-08-24] MEDS ORDERED: MED REC IN PROGRESS XX SCH (16:20)
[2023-08-24] MEDS ORDERED: PRESCAP PO (16:21)
[2023-08-24] MEDS ORDERED: METOPROLOL 5 MG/5 ML VIAL IV PRN (17:35)
[2023-08-24] MEDS ORDERED: HOME MED LIST COMPLETE! XX SCH (18:15)
[2023-08-25] VITALS (8 sets, daily range): BP systolic 87–138; BP diastolic 54–84; TEMP 98.2–98.7; O2SAT 97–99
[2023-08-25] MEDS: ACETAMINOPHEN TAB 650MG DOSE (2X325MG) PO PRN ×2 (00:55→21:09)
[2023-08-25] MEDS: LEVOTHYROXINE 88MCG TABLET (0.088 MG) PO SCH (08:22)
[2023-08-25] MEDS: FUROSEMIDE 20 MG TAB PO SCH (09:00)
[2023-08-25] MEDS ORDERED: METOPROLOL TART 25 MG TABLET PO SCH (09:00)
[2023-08-25] MEDS: ASPIRIN 81MG CHEW TABLET PO SCH (10:01)
[2023-08-25] MEDS: CETIRIZINE (ZyrTEC) 10 MG TAB PO SCH (10:02)
[2023-08-25] MEDS: PANTOPRAZOLE 40MG TAB (PROTONIX) PO SCH (10:02)
[2023-08-25] MEDS: MULTIVITAMINS/MINERALS THERAP 1 TAB PO SCH (10:02)
[2023-08-25] MEDS: DOFETILIDE 250 MCG PO SCH ×2 (13:26→21:05)
[2023-08-25] MEDS ORDERED: amLODIPine 5 MG TAB PO SCH (21:00)
[2023-08-25] MEDS ORDERED: BACLOFEN 10 MG TAB PO SCH (21:00)
[2023-08-25] MEDS ORDERED: VITAMIN D 1,000 INTERNATIONAL UNITS TABLET PO SCH (21:00)
[2023-08-25] MEDS ORDERED: MAGNESIUM OXIDE 400MG TAB (MAG-OX) PO SCH (21:00)
[2023-08-25] MEDS ORDERED: SIMVASTATIN 40 MG TAB PO SCH (21:00)
[2023-08-25] MEDS ORDERED: TERAZOSIN 5MG CAPSULE PO SCH (21:00)
[2023-08-25] MEDS: HEPARIN SOD (PORCINE) 5000UNITS/ML 1ML VIAL/SYRINGE SC SCH ×2 (22:00→23:14)
[2023-08-25] MEDS ORDERED: ACETAMINOPHEN *IV* 1,000 MG in IV 1 EA IV ONE (23:50)
[2023-08-26 03:36] VITALS: BP 104/68; TEMP 97.3; O2SAT 98
[2023-08-26] MEDS: LEVOTHYROXINE 88MCG TABLET (0.088 MG) PO SCH (06:18)
[2023-08-26] MEDS: HEPARIN SOD (PORCINE) 5000UNITS/ML 1ML VIAL/SYRINGE SC SCH (06:18)
[2023-08-26 07:16] LABS: CALCIUM LEVEL 8.3 MG/DL (8.3-10.6); CREATININE FOR GFR 0.96 MG/DL (0.55-1.30); GLOMERULAR FILTRATION RATE 59.5 (>32); POTASSIUM SERUM 4.2 MMOL/L (3.5-5.1)
[2023-08-26] MEDS ORDERED: propofoL 200 MG/20 ML VIAL As Ordered ONE (08:11)
[2023-08-26] MEDS ORDERED: LIDOCAINE 2% 100MG/5ML SDV (FOR ANES.) As Ordered ONE (08:11)
[2023-08-26 09:00] VITALS: BP 122/62; TEMP 98.2; O2SAT 96
[2023-08-26] MEDS: ASPIRIN 81MG CHEW TABLET PO SCH (09:47)
[2023-08-26] MEDS: FUROSEMIDE 20 MG TAB PO SCH (09:48)
[2023-08-26] MEDS: PANTOPRAZOLE 40MG TAB (PROTONIX) PO SCH (09:48)
[2023-08-26] MEDS: CETIRIZINE (ZyrTEC) 10 MG TAB PO SCH (09:49)
[2023-08-26] MEDS: MULTIVITAMINS/MINERALS THERAP 1 TAB PO SCH (09:49)
[2023-08-26] MEDS: ACETAMINOPHEN TAB 650MG DOSE (2X325MG) PO PRN (09:50)
[2023-08-26] MEDS: DOFETILIDE 250 MCG PO SCH (09:50)
[2023-08-26 12:00] VITALS: BP 113/56; TEMP 98.5; O2SAT 99
== END 2023-08-26 13:40 | disposition home or self-care (01) | DRG 310 ==
LOC: M ED 11:16 → M ED INP 11:17 → M PCU 08-25 00:04 → OBSVTOIN 08-25 18:55
PROVIDERS: ADMIT Student in an Organized Health Care Education/Training Program; ATTEND Student in an Organized Health Care Education/Training Program
PROC: 5A2204Z Restoration of Cardiac Rhythm, Single (ICD-10-PCS; principal; 2023-08-26 07:30)
DX: I48.19 Other persistent atrial fibrillation (principal); E03.9 Hypothyroidism, unspecified; I73.9 Peripheral vascular disease, unspecified; I10 Essential (primary) hypertension; E78.5 Hyperlipidemia, unspecified; Z87.891 Personal history of nicotine dependence; Z95.828 Presence of other vascular implants and grafts; Z79.82 Long term (current) use of aspirin; Z79.890 Hormone replacement therapy; Z79.899 Other long term (current) drug therapy; Z88.8 Allergy status to other drugs, medicaments and biological substances; Z20.822 Contact with and (suspected) exposure to COVID-19; Z86.73 Personal history of transient ischemic attack (TIA), and cerebral infarction without residual deficits

== ENCOUNTER → 2023-10-13 | Outpatient (CLI) | payer MEDICARE, BC, OTHER ==
[2023-10-13 18:42] LABS: CREATININE FOR GFR 1.02 MG/DL (0.55-1.30); GLOMERULAR FILTRATION RATE 55.5 (>32); POTASSIUM SERUM 4.2 MMOL/L (3.5-5.1)
== END ==
LOC: M WUC 11:52
PROVIDERS: ATTEND Internal Medicine Cardiovascular Disease
DX: I48.0 Paroxysmal atrial fibrillation (principal)

== ENCOUNTER → 2023-12-02 | Outpatient (REF) | payer MEDICARE, OTHER ==
[2023-12-02 16:41] LABS: HEMATOCRIT 33.3 % (36.0-47.0); MEAN CORPUSCULAR HEMOGLOBIN 32.8 pg (27.0-33.0); MEAN CORPUSCULAR VOLUME 99.4 fl (80.0-96.0); PLATELET COUNT, AUTOMATED 171 10^3/uL (150-450); RED BLOOD COUNT 3.35 10^6/uL (4.00-5.40); WHITE BLOOD COUNT 4.4 10^3/uL (4.0-10.0)
[2023-12-02 16:49] LABS: CREATININE FOR GFR 1.1 MG/DL (0.55-1.30); GLOMERULAR FILTRATION RATE 50.9 (>32); POTASSIUM SERUM 3.9 MMOL/L (3.5-5.1)
[2023-12-02 16:50] LABS: PERCENT SATURATION 21.1 % (13.2-45.0); THYROID STIMULATING HORMONE 2.425 uIU/ML (0.55-4.78)
[2023-12-02 16:51] LABS: FERRITIN 66.3 NG/ML (7.3-270.7)
[2023-12-02 16:52] LABS: FREE T4 1.41 NG/DL (0.89-1.76)
== END ==
LOC: M SFHCADAM 13:44
PROVIDERS: ATTEND Family Medicine
DX: E03.9 Hypothyroidism, unspecified (principal); D64.9 Anemia, unspecified; I11.9 Hypertensive heart disease without heart failure

== ENCOUNTER → 2023-12-02 | Outpatient (CLI) | payer MEDICARE, OTHER | LOC: M ADAMS 13:55 | PROVIDERS: ATTEND Family Medicine | DX: R05.3 Chronic cough (principal); E03.9 Hypothyroidism, unspecified; D64.9 Anemia, unspecified; I11.9 Hypertensive heart disease without heart failure ==

== ENCOUNTER → 2024-01-20 | Outpatient (CLI) | payer MEDICARE, OTHER ==
[2024-01-20 18:50] LABS: BASO # 0.1 10^3/uL (0.0-0.2); BASO % 1.5 % (0.0-1.0); EOS # 0.1 10^3/uL (0.0-0.5); HEMATOCRIT 33.4 % (36.0-47.0); HEMOGLOBIN 10.9 g/dl (12.0-15.5); LYMPH # 1.1 10^3/uL (1.5-5.0); LYMPH % 29.2 % (24.0-44.0); MEAN CORPUSCULAR HEMOGLOBIN 32.5 pg (27.0-33.0); MEAN CORPUSCULAR HGB CONC 32.6 g/dl (32.0-36.5); MEAN CORPUSCULAR VOLUME 99.7 fl (80.0-96.0); MONO # 0.4 10^3/uL (0.0-0.8); NEUTROPHILS # 2.2 10^3/uL (1.5-8.5); PLATELET COUNT, AUTOMATED 169 10^3/uL (150-450); RED BLOOD COUNT 3.35 10^6/uL (4.00-5.40); WHITE BLOOD COUNT 3.9 10^3/uL (4.0-10.0)
[2024-01-20 19:13] LABS: ALBUMIN 4.1 G/DL (3.2-5.2); BILIRUBIN,TOTAL 0.9 MG/DL (0.3-1.2); CALCIUM LEVEL 8.9 MG/DL (8.3-10.6); CREATININE FOR GFR 1.1 MG/DL (0.55-1.30); GLOMERULAR FILTRATION RATE 50.7 (>32); PERCENT SATURATION 22.2 % (13.2-45.0); POTASSIUM SERUM 4.3 MMOL/L (3.5-5.1); TOTAL PROTEIN 6.6 G/DL (5.7-8.2)
== END ==
LOC: M WUC 12:20
PROVIDERS: ATTEND Internal Medicine Medical Oncology
DX: D50.9 Iron deficiency anemia, unspecified (principal)

== ENCOUNTER → 2024-02-29 | Outpatient (CLI) | payer MEDICARE, BC | LOC: M WHC 13:09 | PROVIDERS: ATTEND Family Medicine | DX: Z12.31 Encounter for screening mammogram for malignant neoplasm of breast (principal) ==

== ENCOUNTER 2024-04-04 11:39 | Emergency (ER) | payer MEDICARE, BC ==
[~2024-04-04] VITALS: Ht 162.6 cm; Wt 68.1 kg
[2024-04-04] MEDS ORDERED: AMLO1TAB24 (11:57)
[2024-04-04] MEDS ORDERED: ATOR1TAB21 (11:57)
[2024-04-04 12:09] LABS: BASO % 0.7 % (0.0-1.0); EOS # 0.1 10^3/uL (0.0-0.5); EOS % 0.9 % (0.0-3.0); HEMATOCRIT 36.9 % (36.0-47.0); LYMPH # 0.9 10^3/uL (1.5-5.0); LYMPH % 16.5 % (24.0-44.0); MEAN CORPUSCULAR HEMOGLOBIN 32.5 pg (27.0-33.0); MEAN CORPUSCULAR HGB CONC 32.5 g/dl (32.0-36.5); MONO # 0.5 10^3/uL (0.0-0.8); MONO % 9.9 % (2.0-8.0); NEUTROPHILS # 3.9 10^3/uL (1.5-8.5); NEUTROPHILS % 71.8 % (36.0-66.0); PLATELET COUNT, AUTOMATED 181 10^3/uL (150-450); RED BLOOD COUNT 3.69 10^6/uL (4.00-5.40); WHITE BLOOD COUNT 5.5 10^3/uL (4.0-10.0)
[2024-04-04 12:27] LABS: INR 0.98; PARTIAL THROMBOPLASTIN TIME 22.2 SECONDS (24.8-34.2); PROTHROMBIN TIME 12.7 SECONDS (12.5-14.5)
[2024-04-04 12:46] LABS: CALCIUM LEVEL 9.2 MG/DL (8.3-10.6); CK-MB VALUE MASS 2.3 NG/ML (<3.6); CREATININE FOR GFR 1.04 MG/DL (0.55-1.30); GLOMERULAR FILTRATION RATE 54.1 (>32); MB/CK RELATIVE INDEX 1.96 (< OR =4); POTASSIUM SERUM 4.3 MMOL/L (3.5-5.1)
[2024-04-04 13:15] VITALS: BP 123/84; TEMP 98.2; O2SAT 98
[2024-04-04 13:21] LABS: MAGNESIUM LEVEL 2.1 MG/DL (1.8-2.4)
[2024-04-04 13:23] LABS: FREE T4 1.4 NG/DL (0.89-1.76)
[2024-04-04 13:24] LABS: THYROID STIMULATING HORMONE 1.084 uIU/ML (0.55-4.78)
[2024-04-04 13:45] LABS: CK-MB VALUE MASS 2.1 NG/ML (<3.6); MB/CK RELATIVE INDEX 2.12 (< OR =4)
== END 2024-04-04 13:43 | disposition left against medical advice (07) ==
LOC: M ED 11:39
DX: I48.91 Unspecified atrial fibrillation (principal); I10 Essential (primary) hypertension; E78.5 Hyperlipidemia, unspecified; E03.9 Hypothyroidism, unspecified; K21.9 Gastro-esophageal reflux disease without esophagitis; N18.30 Chronic kidney disease, stage 3 unspecified; Z86.79 Personal history of other diseases of the circulatory system; Z87.891 Personal history of nicotine dependence; Z88.8 Allergy status to other drugs, medicaments and biological substances; Z79.82 Long term (current) use of aspirin; Z79.02 Long term (current) use of antithrombotics/antiplatelets; Z79.899 Other long term (current) drug therapy; Z53.9 Procedure and treatment not carried out, unspecified reason

== ENCOUNTER → 2024-07-04 | Outpatient (CLI) | payer MEDICARE, BC, OTHER ==
[~2024-07-04] MED LIST changes: +AMLO1TAB24; +ATOR1TAB21
== END ==
LOC: M SOG 07:50
PROVIDERS: ATTEND Physician Assistant
DX: M25.511 Pain in right shoulder (principal)

== ENCOUNTER → 2024-07-12 | Outpatient (CLI) | payer MEDICARE, BC, OTHER ==
[2024-07-12 15:57] LABS: BASO % 0.5 % (0.0-1.0); EOS # 0.1 10^3/uL (0.0-0.5); EOS % 0.8 % (0.0-3.0); HEMATOCRIT 33.5 % (36.0-47.0); HEMOGLOBIN 11.4 g/dl (12.0-15.5); LYMPH # 0.9 10^3/uL (1.5-5.0); LYMPH % 14.9 % (24.0-44.0); MEAN CORPUSCULAR HEMOGLOBIN 33.1 pg (27.0-33.0); MEAN CORPUSCULAR VOLUME 97.4 fl (80.0-96.0); MONO # 0.4 10^3/uL (0.0-0.8); MONO % 6.8 % (2.0-8.0); NEUTROPHILS # 4.7 10^3/uL (1.5-8.5); NEUTROPHILS % 76.7 % (36.0-66.0); PLATELET COUNT, AUTOMATED 203 10^3/uL (150-450); RED BLOOD COUNT 3.44 10^6/uL (4.00-5.40); WHITE BLOOD COUNT 6.2 10^3/uL (4.0-10.0)
[2024-07-12 18:16] LABS: ALBUMIN 4.1 G/DL (3.2-5.2); BILIRUBIN,TOTAL 0.9 MG/DL (0.3-1.2); CALCIUM LEVEL 9.6 MG/DL (8.3-10.6); CREATININE FOR GFR 1.14 MG/DL (0.55-1.30); GLOMERULAR FILTRATION RATE 48.7 (>32); POTASSIUM SERUM 3.9 MMOL/L (3.5-5.1); TOTAL PROTEIN 7.2 G/DL (5.7-8.2)
== END ==
LOC: M RAD 15:05
PROVIDERS: ATTEND Physician Assistant
DX: M79.89 Other specified soft tissue disorders (principal)

== ENCOUNTER 2024-07-27 11:17 | Emergency (ER) | payer MEDICARE, BC ==
[~2024-07-27] VITALS: Ht 162.6 cm; Wt 65.4 kg
[~2024-07-27 11:17] MED LIST changes: -AMLO1TAB24; -ATOR1TAB21; +ATOR1TAB21 PO
[2024-07-27 11:58] LABS: BASO # 0.1 10^3/uL (0.0-0.2); BASO % 0.8 % (0.0-1.0); EOS % 0.7 % (0.0-3.0); HEMATOCRIT 34.5 % (36.0-47.0); HEMOGLOBIN 11.6 g/dl (12.0-15.5); LYMPH # 1.1 10^3/uL (1.5-5.0); LYMPH % 17.8 % (24.0-44.0); MEAN CORPUSCULAR HEMOGLOBIN 32.8 pg (27.0-33.0); MEAN CORPUSCULAR HGB CONC 33.6 g/dl (32.0-36.5); MEAN CORPUSCULAR VOLUME 97.5 fl (80.0-96.0); MONO # 0.5 10^3/uL (0.0-0.8); MONO % 8.8 % (2.0-8.0); NEUTROPHILS # 4.3 10^3/uL (1.5-8.5); NEUTROPHILS % 71.7 % (36.0-66.0); PLATELET COUNT, AUTOMATED 189 10^3/uL (150-450); RED BLOOD COUNT 3.54 10^6/uL (4.00-5.40); WHITE BLOOD COUNT 5.9 10^3/uL (4.0-10.0)
[2024-07-27 12:16] LABS: INR 0.89; LIPASE 49 U/L (12-53); PARTIAL THROMBOPLASTIN TIME 24.3 SECONDS (24.8-34.2); PROTHROMBIN TIME 12.4 SECONDS (12.5-14.5)
[2024-07-27 12:20] LABS: FREE T4 1.52 NG/DL (0.89-1.76)
[2024-07-27 12:21] LABS: THYROID STIMULATING HORMONE 4.261 uIU/ML (0.55-4.78)
[2024-07-27 12:28] LABS: ALBUMIN 4.1 G/DL (3.2-5.2); ALKALINE PHOSPHATASE 71 U/L (35-104); ALT/SGPT 24 U/L (7.0-40); AST/SGOT 27 U/L (<34); BILIRUBIN,DIRECT 0.2 MG/DL (<0.4); BILIRUBIN,TOTAL 0.9 MG/DL (0.3-1.2); BLOOD UREA NITROGEN 18 MG/DL (9-23); CALCIUM LEVEL 9.4 MG/DL (8.3-10.6); CARBON DIOXIDE LEVEL 26 MMOL/L (20-31); CHLORIDE LEVEL 101 MMOL/L (98-107); CREATININE FOR GFR 0.89 MG/DL (0.55-1.30); GLOMERULAR FILTRATION RATE > 60.0 (>32); GLUCOSE, FASTING 104 MG/DL (74-106); MAGNESIUM LEVEL 2.2 MG/DL (1.8-2.4); POTASSIUM SERUM 4.1 MMOL/L (3.5-5.1); SODIUM LEVEL 134 MMOL/L (136-145); TOTAL PROTEIN 7.1 G/DL (5.7-8.2)
[2024-07-27 13:13] LABS: ERYTHROCYTE SEDIMENTATION RATE 16 mm/hr (0-30)
[2024-07-27 13:21] LABS: C REACTIVE PROTEIN QUANTITATIV < 0.40 MG/DL (<1.0)
[2024-07-27] MEDS ORDERED: ASPI81TA26 PO (14:37)
[2024-07-27] MEDS ORDERED: DAILTAB22 PO (14:37)
[2024-07-27] MEDS ORDERED: HOME MED LIST COMPLETE! XX SCH (14:40)
[2024-07-27] MEDS ORDERED: ISOVUE-370 76% 100ML VIAL As Ordered ONE (14:45)
[2024-07-27] MEDS ORDERED: propofoL 200 MG/20 ML VIAL As Ordered ONE (15:36)
[2024-07-27] MEDS: propofoL 200 MG/20 ML VIAL IV.PROC PRN (15:50)
[2024-07-27] MEDS: NS 1,000 ML IV SCH (15:51)
[2024-07-27] MEDS ORDERED: CEFD1CAP9 PO (16:41)
[2024-07-27 16:53] VITALS: BP 115/54; TEMP 98; O2SAT 97
== END 2024-07-27 17:07 | disposition home or self-care (01) ==
LOC: M ED 11:17
DX: L03.116 Cellulitis of left lower limb (principal); I48.91 Unspecified atrial fibrillation; R00.1 Bradycardia, unspecified; I10 Essential (primary) hypertension; N18.30 Chronic kidney disease, stage 3 unspecified; Z86.79 Personal history of other diseases of the circulatory system; Z88.8 Allergy status to other drugs, medicaments and biological substances; Z79.1 Long term (current) use of non-steroidal anti-inflammatories (NSAID); Z79.82 Long term (current) use of aspirin; Z79.02 Long term (current) use of antithrombotics/antiplatelets; Z79.899 Other long term (current) drug therapy; Z79.2 Long term (current) use of antibiotics
CPT/HCPCS: 71045; 73701; 80048; 80076; 83605; 83690; 83735; 84439; 84443; 85025; 85610; 85652; 85730; 86140; 87040; 92960; 93005; 93041; 94760; 99285; G0463; Q9967

== ENCOUNTER 2024-08-22 14:43 | Emergency (ER) | payer MEDICARE, BC ==
[~2024-08-22] VITALS: Ht 162.6 cm; Wt 75.3 kg
[~2024-08-22 14:43] MED LIST changes: +ASPI81TA26 PO; +CEFD1CAP9 PO; +DAILTAB22 PO
[2024-08-22 16:03] LABS: BASO % 0.7 % (0.0-1.0); EOS # 0.1 10^3/uL (0.0-0.5); EOS % 1.5 % (0.0-3.0); HEMATOCRIT 28.4 % (36.0-47.0); HEMOGLOBIN 9.1 g/dl (12.0-15.5); LYMPH # 0.5 10^3/uL (1.5-5.0); LYMPH % 13.1 % (24.0-44.0); MEAN CORPUSCULAR HEMOGLOBIN 31.5 pg (27.0-33.0); MEAN CORPUSCULAR VOLUME 98.3 fl (80.0-96.0); MONO # 0.4 10^3/uL (0.0-0.8); MONO % 9.9 % (2.0-8.0); NEUTROPHILS % 74.6 % (36.0-66.0); PLATELET COUNT, AUTOMATED 157 10^3/uL (150-450); RED BLOOD COUNT 2.89 10^6/uL (4.00-5.40)
[2024-08-22] MEDS ORDERED: MELA10CA6 PO (16:29)
[2024-08-22 16:32] LABS: CPK CREATINE PHOSPHOKINASE 141 U/L (34-145)
[2024-08-22 16:40] LABS: ALBUMIN 3.6 G/DL (3.2-5.2); ALKALINE PHOSPHATASE 86 U/L (35-104); ALT/SGPT 34 U/L (7.0-40); AST/SGOT 29 U/L (<34); BILIRUBIN,DIRECT 0.5 MG/DL (<0.4); BILIRUBIN,TOTAL 1.6 MG/DL (0.3-1.2); BLOOD UREA NITROGEN 19 MG/DL (9-23); CALCIUM LEVEL 8.7 MG/DL (8.3-10.6); CARBON DIOXIDE LEVEL 29 MMOL/L (20-31); CHLORIDE LEVEL 102 MMOL/L (98-107); CK-MB VALUE MASS 1.8 NG/ML (<3.6); CREATININE FOR GFR 0.94 MG/DL (0.55-1.30); GLOMERULAR FILTRATION RATE > 60.0 (>32); GLUCOSE, FASTING 99 MG/DL (74-106); MB/CK RELATIVE INDEX 1.27 (< OR =4); POTASSIUM SERUM 3.6 MMOL/L (3.5-5.1); SODIUM LEVEL 137 MMOL/L (136-145); TOTAL PROTEIN 6.3 G/DL (5.7-8.2)
[2024-08-22 16:42] LABS: FREE T4 1.47 NG/DL (0.89-1.76); THYROID STIMULATING HORMONE 5.441 uIU/ML (0.55-4.78)
[2024-08-22] MEDS: FUROSEMIDE 40MG/4ML VIAL IV ONE (17:54)
[2024-08-22] MEDS ORDERED: TORS20TA2 PO (18:33)
[2024-08-22 18:42] VITALS: BP 180/74; TEMP 98.3; O2SAT 96
== END 2024-08-22 18:55 | disposition home or self-care (01) ==
LOC: M ED 14:43
DX: J81.0 Acute pulmonary edema (principal); I45.81 Long QT syndrome; I10 Essential (primary) hypertension; K21.9 Gastro-esophageal reflux disease without esophagitis; N18.30 Chronic kidney disease, stage 3 unspecified; E78.5 Hyperlipidemia, unspecified; D50.9 Iron deficiency anemia, unspecified; E03.9 Hypothyroidism, unspecified; Z86.73 Personal history of transient ischemic attack (TIA), and cerebral infarction without residual deficits; Z88.8 Allergy status to other drugs, medicaments and biological substances; Z86.79 Personal history of other diseases of the circulatory system; Z87.891 Personal history of nicotine dependence; Z79.82 Long term (current) use of aspirin; Z79.02 Long term (current) use of antithrombotics/antiplatelets; Z79.1 Long term (current) use of non-steroidal anti-inflammatories (NSAID); Z79.899 Other long term (current) drug therapy
CPT/HCPCS: 71045; 80048; 80076; 82550; 82553; 83880; 84439; 84443; 84484; 85025; 93005; 93041; 93970; 94760; 96374; 99285; J1940

== ENCOUNTER → 2024-09-04 | Outpatient (CLI) | payer MEDICARE, BC ==
[~2024-09-04] MED LIST changes: +MELA10CA6 PO; +TORS20TA2 PO
[2024-09-04 17:12] LABS: BASO # 0.1 10^3/uL (0.0-0.2); BASO % 1.3 % (0.0-1.0); EOS # 0.2 10^3/uL (0.0-0.5); EOS % 3.5 % (0.0-3.0); HEMOGLOBIN 10.6 g/dl (12.0-15.5); LYMPH # 0.9 10^3/uL (1.5-5.0); LYMPH % 16.2 % (24.0-44.0); MEAN CORPUSCULAR HEMOGLOBIN 32.4 pg (27.0-33.0); MEAN CORPUSCULAR HGB CONC 32.1 g/dl (32.0-36.5); MEAN CORPUSCULAR VOLUME 100.9 fl (80.0-96.0); MONO # 0.6 10^3/uL (0.0-0.8); MONO % 10.7 % (2.0-8.0); NEUTROPHILS # 3.7 10^3/uL (1.5-8.5); NEUTROPHILS % 68.1 % (36.0-66.0); PLATELET COUNT, AUTOMATED 248 10^3/uL (150-450); RED BLOOD COUNT 3.27 10^6/uL (4.00-5.40); WHITE BLOOD COUNT 5.4 10^3/uL (4.0-10.0)
[2024-09-04 17:41] LABS: ALBUMIN 4.1 G/DL (3.2-5.2); CALCIUM LEVEL 9.2 MG/DL (8.3-10.6); CREATININE FOR GFR 1.15 MG/DL (0.55-1.30); GLOMERULAR FILTRATION RATE 48.2 (>32); TOTAL PROTEIN 7.4 G/DL (5.7-8.2)
== END ==
LOC: M WUC 13:18
PROVIDERS: ATTEND Internal Medicine Medical Oncology
DX: I48.0 Paroxysmal atrial fibrillation (principal); D63.8 Anemia in other chronic diseases classified elsewhere

== ENCOUNTER → 2024-09-04 | Outpatient (CLI) | payer MEDICARE, BC ==
[2024-09-04 17:43] LABS: CREATININE FOR GFR 1.15 MG/DL (0.55-1.30); GLOMERULAR FILTRATION RATE 48.2 (>32); POTASSIUM SERUM 4.2 MMOL/L (3.5-5.1)
== END ==
LOC: M WUC 13:20
PROVIDERS: ATTEND Internal Medicine Cardiovascular Disease
DX: I48.0 Paroxysmal atrial fibrillation (principal)

== ENCOUNTER → 2024-09-08 | Outpatient (CLI) | payer MEDICARE, BC ==
[2024-09-08 17:01] LABS: HEMATOCRIT 32.8 % (36.0-47.0); HEMOGLOBIN 10.1 g/dl (12.0-15.5); MEAN CORPUSCULAR HEMOGLOBIN 31.4 pg (27.0-33.0); MEAN CORPUSCULAR HGB CONC 30.8 g/dl (32.0-36.5); MEAN CORPUSCULAR VOLUME 101.9 fl (80.0-96.0); PLATELET COUNT, AUTOMATED 225 10^3/uL (150-450); RED BLOOD COUNT 3.22 10^6/uL (4.00-5.40); WHITE BLOOD COUNT 5.2 10^3/uL (4.0-10.0)
[2024-09-08 17:20] LABS: ALBUMIN 3.8 G/DL (3.2-5.2); CALCIUM LEVEL 8.9 MG/DL (8.3-10.6); CHOLESTEROL RISK RATIO 2.77 (<5); CREATININE FOR GFR 1.19 MG/DL (0.55-1.30); GLOMERULAR FILTRATION RATE 46.3 (>32); HDL CHOLESTEROL 43.2 MG/DL (>40); LDL CHOLESTEROL 64.6 MG/DL (<100); MAGNESIUM LEVEL 2.2 MG/DL (1.8-2.4); NON-HDL-C 76.8 MG/DL; PERCENT SATURATION 18.6 % (13.2-45.0); POTASSIUM SERUM 4.5 MMOL/L (3.5-5.1); TOTAL PROTEIN 6.7 G/DL (5.7-8.2)
[2024-09-08 17:21] LABS: FERRITIN 48.5 NG/ML (7.3-270.7); THYROID STIMULATING HORMONE 5.705 uIU/ML (0.55-4.78)
[2024-09-08 17:22] LABS: FREE T4 1.34 NG/DL (0.89-1.76)
[2024-09-08 17:34] LABS: HEMOGLOBIN A1c 5.5 % (4.0-6.0)
== END ==
LOC: M WUC 10:49
PROVIDERS: ATTEND Family Medicine
DX: I48.0 Paroxysmal atrial fibrillation (principal); E03.9 Hypothyroidism, unspecified; D64.9 Anemia, unspecified; E78.2 Mixed hyperlipidemia; Z13.1 Encounter for screening for diabetes mellitus

== ENCOUNTER → 2024-09-26 | Outpatient (REF) | payer MEDICARE, BC, OTHER | LOC: M SFHCDERM 17:34 | PROVIDERS: ATTEND Dermatology | DX: C44.212 Basal cell carcinoma of skin of right ear and external auricular canal (principal) ==

== ENCOUNTER → 2024-11-14 | Outpatient (CLI) | payer MEDICARE, BC, OTHER ==
[~2024-11-14] MED LIST changes: +METO50TA7; +POTA-151
[2024-11-14 18:25] LABS: BILIRUBIN,TOTAL 0.9 MG/DL (0.3-1.2); CALCIUM LEVEL 8.7 MG/DL (8.3-10.6); CREATININE FOR GFR 1.2 MG/DL (0.55-1.30); GLOMERULAR FILTRATION RATE 45.9 (>32); POTASSIUM SERUM 3.9 MMOL/L (3.5-5.1); TOTAL PROTEIN 6.9 G/DL (5.7-8.2)
[2024-11-14 18:44] LABS: BASO # 0.1 10^3/uL (0.0-0.2); BASO % 1.3 % (0.0-1.0); EOS # 0.1 10^3/uL (0.0-0.5); EOS % 2.6 % (0.0-3.0); HEMATOCRIT 35.5 % (36.0-47.0); HEMOGLOBIN 11.4 g/dl (12.0-15.5); MEAN CORPUSCULAR HEMOGLOBIN 32.6 pg (27.0-33.0); MEAN CORPUSCULAR HGB CONC 32.1 g/dl (32.0-36.5); MEAN CORPUSCULAR VOLUME 101.4 fl (80.0-96.0); MONO # 0.6 10^3/uL (0.0-0.8); MONO % 12.4 % (2.0-8.0); NEUTROPHILS # 2.8 10^3/uL (1.5-8.5); NEUTROPHILS % 61.3 % (36.0-66.0); PLATELET COUNT, AUTOMATED 189 10^3/uL (150-450); WHITE BLOOD COUNT 4.6 10^3/uL (4.0-10.0)
== END ==
LOC: M WUC 12:08
PROVIDERS: ATTEND Internal Medicine Medical Oncology
DX: D64.9 Anemia, unspecified (principal)

== ENCOUNTER → 2024-12-15 | Outpatient (REF) | payer MEDICARE, BC ==
[2024-12-15 19:47] LABS: FREE T4 1.59 NG/DL (0.89-1.76); THYROID STIMULATING HORMONE 0.855 uIU/ML (0.55-4.78)
== END ==
LOC: M SFHCADAM 13:49
PROVIDERS: ATTEND Family Medicine
DX: E03.9 Hypothyroidism, unspecified (principal)

== ENCOUNTER → 2024-12-28 | Outpatient (REF) | payer MEDICARE, BC ==
[2024-12-28 17:25] LABS: HEMATOCRIT 37.1 % (36.0-47.0); HEMOGLOBIN 12.1 g/dl (12.0-15.5); MEAN CORPUSCULAR HEMOGLOBIN 33.1 pg (27.0-33.0); MEAN CORPUSCULAR HGB CONC 32.6 g/dl (32.0-36.5); MEAN CORPUSCULAR VOLUME 101.4 fl (80.0-96.0); PLATELET COUNT, AUTOMATED 164 10^3/uL (150-450); RED BLOOD COUNT 3.66 10^6/uL (4.00-5.40); WHITE BLOOD COUNT 3.9 10^3/uL (4.0-10.0)
[2024-12-28 17:28] LABS: CALCIUM LEVEL 9.2 MG/DL (8.3-10.6); CREATININE FOR GFR 0.95 MG/DL (0.55-1.30); GLOMERULAR FILTRATION RATE 59.8 (>32); PERCENT SATURATION 34.9 % (13.2-45.0); POTASSIUM SERUM 4.2 MMOL/L (3.5-5.1)
[2024-12-28 17:32] LABS: FERRITIN 278.3 NG/ML (7.3-270.7)
== END ==
LOC: M SFHCADAM 11:35
PROVIDERS: ATTEND Family Medicine
DX: D64.9 Anemia, unspecified (principal); N18.31 Chronic kidney disease, stage 3a

== ENCOUNTER → 2025-01-23 | Outpatient (CLI) | payer MEDICARE, BC ==
[~2025-01-23] MED LIST changes: +AMLO-751 PO; -AMLO10TA PO
[2025-01-23 14:15] LABS: BASO # 0.1 10^3/uL (0.0-0.2); BASO % 1.2 % (0.0-1.0); EOS # 0.1 10^3/uL (0.0-0.5); EOS % 2.2 % (0.0-3.0); HEMATOCRIT 37.2 % (36.0-47.0); LYMPH # 0.9 10^3/uL (1.5-5.0); LYMPH % 22.7 % (24.0-44.0); MEAN CORPUSCULAR HEMOGLOBIN 32.9 pg (27.0-33.0); MEAN CORPUSCULAR HGB CONC 32.3 g/dl (32.0-36.5); MEAN CORPUSCULAR VOLUME 101.9 fl (80.0-96.0); MONO # 0.6 10^3/uL (0.0-0.8); MONO % 13.3 % (2.0-8.0); NEUTROPHILS # 2.5 10^3/uL (1.5-8.5); NEUTROPHILS % 60.4 % (36.0-66.0); PLATELET COUNT, AUTOMATED 162 10^3/uL (150-450); RED BLOOD COUNT 3.65 10^6/uL (4.00-5.40); WHITE BLOOD COUNT 4.2 10^3/uL (4.0-10.0)
[2025-01-23 14:18] LABS: IRON (FE) 89 UG/DL (50-170)
[2025-01-23 14:19] LABS: ALBUMIN 4.1 G/DL (3.2-5.2); ALKALINE PHOSPHATASE 84 U/L (35-104); ALT/SGPT 24 U/L (7.0-40); AST/SGOT 27 U/L (<34); BLOOD UREA NITROGEN 35 MG/DL (9-23); CARBON DIOXIDE LEVEL 32 MMOL/L (20-31); CHLORIDE LEVEL 103 MMOL/L (98-107); CREATININE FOR GFR 1.16 MG/DL (0.55-1.30); GLOMERULAR FILTRATION RATE 47.1 (>32); GLUCOSE, FASTING 76 MG/DL (74-106); MAGNESIUM LEVEL 2.1 MG/DL (1.8-2.4); PERCENT SATURATION 31.3 % (13.2-45.0); POTASSIUM SERUM 3.9 MMOL/L (3.5-5.1); SODIUM LEVEL 144 MMOL/L (136-145); TOTAL IRON BINDING CAPACITY 284 UG/DL (250-425); TOTAL PROTEIN 6.9 G/DL (5.7-8.2)
[2025-01-23 14:20] LABS: FERRITIN 275.4 NG/ML (7.3-270.7); FOLATE > 24.0 NG/ML (>5.4)
[2025-01-23 14:21] LABS: VITAMIN B12 LEVEL 973 PG/ML (211-911)
== END ==
LOC: M WUC 11:33
PROVIDERS: ATTEND Internal Medicine Medical Oncology
DX: D50.9 Iron deficiency anemia, unspecified (principal)

== ENCOUNTER → 2025-05-01 | Outpatient (CLI) | payer MEDICARE, BC ==
[~2025-05-01] MED LIST changes: +LISI40TA10 PO; -LISI40TA4 PO; +METO1TAB87
[2025-05-01 18:17] LABS: IRON (FE) 83 UG/DL (50-170)
[2025-05-01 18:18] LABS: ALT/SGPT 38 U/L (7.0-40); AST/SGOT 43 U/L (<34); CALCIUM LEVEL 9.4 MG/DL (8.3-10.6); CARBON DIOXIDE LEVEL 32 MMOL/L (20-31); CHLORIDE LEVEL 98 MMOL/L (98-107); CREATININE FOR GFR 1.56 MG/DL (0.55-1.30); GLOMERULAR FILTRATION RATE 33.0 (>32); MAGNESIUM LEVEL 1.6 MG/DL (1.8-2.4); PERCENT SATURATION 27.5 % (13.2-45.0); POTASSIUM SERUM 3.6 MMOL/L (3.5-5.1); SODIUM LEVEL 143 MMOL/L (136-145)
[2025-05-01 18:28] LABS: BASO # 0.1 10^3/uL (0.0-0.2); BASO % 0.8 % (0.0-1.0); EOS # 0.1 10^3/uL (0.0-0.5); EOS % 1.0 % (0.0-3.0); LYMPH # 1.5 10^3/uL (1.5-5.0); LYMPH % 23.4 % (24.0-44.0); MONO # 0.6 10^3/uL (0.0-0.8); MONO % 9.8 % (2.0-8.0); NEUTROPHILS # 4.0 10^3/uL (1.5-8.5); NEUTROPHILS % 65.0 % (36.0-66.0); PLATELET COUNT, AUTOMATED 221 10^3/uL (150-450)
[2025-05-01 18:35] LABS: VITAMIN B12 LEVEL 681 PG/ML (211-911)
== END ==
LOC: M WUC 13:39
PROVIDERS: ATTEND Internal Medicine Medical Oncology
DX: D50.9 Iron deficiency anemia, unspecified (principal)

== ENCOUNTER → 2025-06-28 | Outpatient (REF) | payer MEDICARE, BC ==
[2025-06-28 18:05] LABS: IRON (FE) 72.0 UG/DL (50-170); PERCENT SATURATION 25.2 % (13.2-45.0)
[2025-06-28 18:06] LABS: ALT/SGPT 36.0 U/L (7.0-40); AST/SGOT 39.0 U/L (<34); CALCIUM LEVEL 9.2 MG/DL (8.3-10.6); CARBON DIOXIDE LEVEL 32.0 MMOL/L (20-31); CHLORIDE LEVEL 103.0 MMOL/L (98-107); CHOLESTEROL LEVEL 140.0 MG/DL (<200); CHOLESTEROL RISK RATIO 2.6 (<5); CREATININE FOR GFR 0.85 MG/DL (0.55-1.30); GLOMERULAR FILTRATION RATE 68.4 (>32); LDL CHOLESTEROL 61.8 MG/DL (<100); MAGNESIUM LEVEL 2.0 MG/DL (1.8-2.4); NON-HDL-C 86.2 MG/DL; POTASSIUM SERUM 4.4 MMOL/L (3.5-5.1); SODIUM LEVEL 143.0 MMOL/L (136-145); TOTAL 25(OH) VITAMIN D 86.7 NG/ML (20.0-100.0); TRIGLYCERIDES LEVEL 122.0 MG/DL (<150)
[2025-06-28 18:07] LABS: FREE T4 1.46 NG/DL (0.89-1.76)
[2025-06-28 18:20] LABS: PLATELET COUNT, AUTOMATED 188 10^3/uL (150-450)
[2025-06-28 18:33] LABS: ESTIMATED AVERAGE GLUCOSE 114.0 MG/DL (60-110)
== END ==
LOC: M SFHCADAM 11:21
PROVIDERS: ATTEND Family Medicine
DX: M85.80 Other specified disorders of bone density and structure, unspecified site (principal); I48.0 Paroxysmal atrial fibrillation; E03.9 Hypothyroidism, unspecified; N18.31 Chronic kidney disease, stage 3a; D64.9 Anemia, unspecified; E78.2 Mixed hyperlipidemia; E74.9 Disorder of carbohydrate metabolism, unspecified